=== PATIENT | female | born 1970 | race Caucasian/White ===

== ENCOUNTER 2022-10-05 09:27 | Emergency (ER) | payer OTHER, SELFPAY ==
[2022-10-05 09:29] VITALS: BP 121/61; PULSE 81; RESP 18; TEMP 35.7; O2SAT 98
--- NOTE | 2022-10-05 11:12 | ED.WOUNDLAC ---
HPI - Wound/Laceration General Chief Complaint: Wound/Laceration Stated Complaint: Thumb laceration Time Seen by Provider: 10/05/22 09:35 History of Present Illness HPI narrative: Patient is a 51-year-old female who presents ER with a laceration to her right thumb over the dorsal aspect at the DIP. Tripped and fell striking her hand on some concrete. She has normal range of motion. No numbness and tingling. She reports that her tetanus shot is up-to-date. No other complaints or injuries. Related Data Allergies Allergy/AdvReac Type Severity Reaction Status Date / Time minocycline Allergy Hives Verified 10/05/22 09:47 Review of Systems Constitutional: Constitutional: Reports no additional constitutional complaints Musculoskeletal: Musculoskeletal: Reports no additional musculoskeletal complaints Integumentary/Breasts: Skin/Breast: Denies erythema and Denies rash Comments: Laceration of the right thumb. Neurologic: Denies focal weakness and Denies numbness PMFSH Past Medical History Medical History (Updated 10/05/22 @ 15:17 by Julien Bennett MD) Diabetes Hyperlipidemia Hypertension Surgical History Surgical History (Updated 10/05/22 @ 15:17 by Julien Bennett MD) No pertinent past surgical history Exam Narrative: GENERAL: Well-appearing, well-nourished, and in no acute distress. HEAD: Normocephalic, atraumatic. CHEST: Clear to auscultation. No respiratory distress. HEART: Regular rate and rhythm. Normal peripheral pulses. EXTREMITIES: Normal range of motion. No edema. Right thumb with normal flexion extension and normal sensation. SKIN: Warm, dry, no rash. 1.5 cm V-shaped laceration over the DIP of the right thumb dorsal aspect with no exposure of bone or tendon. NEURO: Alert and oriented x3. PSYCH: Normal mood and affect. Course Course Emergency Course: Tolerated wound repair without issue. Discharge home. Vital Signs Vital signs: Vital Signs Temperature 96.3 F L 10/05/22 09:29 Pulse Rate 81 10/05/22 09:29 Respiratory Rate 18 10/05/22 09:29 Blood Pressure 121/61 10/05/22 09:29 Pulse Oximetry 98 10/05/22 09:29 Oxygen Delivery Room Air 10/05/22 09:29 Temperature 97.8 F 10/05/22 11:25 Pulse Rate 80 10/05/22 11:25 Respiratory Rate 18 10/05/22 11:25 Blood Pressure 120/70 10/05/22 11:25 Pulse Oximetry 100 10/05/22 11:25 Oxygen Delivery Room Air 10/05/22 09:29 Procedures Laceration Laceration 1: Date: 10/05/22 Time: 11:12 Site: hand Side (If applicable): right Size (cm): 1.5 Description: flap Depth: simple, single layer Local Anesthetic: lidocaine 1% and with epi Amount of anesthesia used (mL): 1.5 Pre-repair: wound explored and irrigated ====== Skin Level ====== Skin layer closed with: nylon Size (cm): 5-0 Number of sutures: 3 Technique: simple, interrupted ====== Subcutaneous Layer ====== ====== Muscle Layer ====== ====== Tendon Layer ====== Discharge Plan Discharge Clinical Impression: Laceration Patient Disposition: Home, Self-Care Condition: Stable Instructions: Care For Your Stitches (ED), Laceration (ED) Additional Instructions: Keep your sutures in for 2 weeks. Return to the ER if your thumb is red/hot, the wound is draining pus, you have additional concerns. You may use your splint for comfort to prevent bending and to protect it from injury while the sutures heal. Follow-up/Referrals: Fernandez,BETI Santa [Primary Care Provider] - 2 Weeks Stand Alone Forms: Work/School Release IP
--- NOTE | 2022-10-05 11:22 | PC.NURSE ---
Finger splint applied to pts R thumb per Dr. Acosta's verbal-order request. Pt had good cap refill <2 seconds after applying the splint.
[2022-10-05 11:25] VITALS: BP 120/70; PULSE 80; RESP 18; TEMP 36.6; O2SAT 100
== END 2022-10-05 11:27 | disposition home or self-care (01) ==
PROVIDERS: Emergency Provider Emergency Medicine; PCP Physician Assistant
DX: S61.011A Laceration without foreign body of right thumb without damage to nail, initial encounter (principal); E11.9 Type 2 diabetes mellitus without complications; E78.5 Hyperlipidemia, unspecified; I10 Essential (primary) hypertension; W01.0XXA Fall on same level from slipping, tripping and stumbling without subsequent striking against object, initial encounter
CPT/HCPCS: 12001; 99282

== ENCOUNTER 2023-03-24 09:20 | Emergency (ER) | payer OTHER, SELFPAY ==
[2023-03-24 09:22] VITALS: BP 130/78; PULSE 90; RESP 20; TEMP 36.6; O2SAT 100
--- NOTE | 2023-03-24 12:16 | ED.BACK ---
HPI - Back Pain/Injury General Chief Complaint: Back Pain/Injury Stated Complaint: low back pain , bilat leg prickling Time Seen by Provider: 03/24/23 11:59 History of Present Illness HPI Narrative: Patient is a 52 year old female here with back pain x 4 days. She notes that she twisted one day and felt immediate back pain. She notes that it is in her lower back and intermittently radiates down bilateral legs. Pain is associated with some pins and needles sensation over her buttock. No numbness or weakness in her bilateral lower extremities. No saddle anesthesia. No bowel or bladder incontinence. She denies any fall or trauma. She has her primary care doctor yesterday who discussed initiation of physical therapy and called her and baclofen. She had 1 dose of this yesterday without any improvement of her back pain. Today she took a naproxen around 7:30 a.m. with minimal help of her symptoms. She does note that she had some upper back pain in the past, has previously had some back x-rays performed showing concerns for degenerative disc disease around the area where her back pain is present today. No fever or chills. No urinary symptoms. She drove to the ER today and does not have a ride home. Related Data Allergies Allergy/AdvReac Type Severity Reaction Status Date / Time minocycline Allergy Hives Verified 10/05/22 09:47 Review of Systems Review of Systems: All systems reviewed & are unremarkable except as noted in HPI and below PMFSH Past Medical History Medical History (Updated 03/24/23 @ 13:15 by Ele Govea MD) Diabetes Hyperlipidemia Hypertension Surgical History Surgical History (Updated 10/05/22 @ 15:17 by Julien Bennett MD) No pertinent past surgical history Exam Narrative: GENERAL: Well-appearing, well-nourished, and in no acute distress. HEAD: Normocephalic, atraumatic. EYES: PERRLA and EOMI. ENT: Nares clear. Mucous membranes moist. NECK: Supple. CHEST: Clear to auscultation. No respiratory distress. HEART: Regular rate and rhythm. Normal peripheral pulses. ABDOMEN: Soft, nontender, nondistended. EXTREMITIES: Ambulates with steady gait. BL paraspinal tenderness around L1-2. Positive straight leg raise on the left. Normal sensation and strength in bilateral lower extremities. No edema. SKIN: Warm, dry, no rash. NEURO: No focal deficits. Alert and oriented x3. PSYCH: Normal mood and affect. Course Course Emergency Course: Chart review performed. Patient here with lower back pain x4 days. Triage vitals normal. One prior ED visit in September 2022 for a hand laceration. Patient seen evaluated, nontoxic appearing. She has some paraspinal tenderness over the upper lumbar area with positive straight leg sign. No red flag symptoms. She has known degenerative disc disease on prior imaging, do not believe there is an indication for additional imaging or lab work at this time. Patient does not have a ride home, will do a dose of Toradol and Tylenol here and send her home with prescription for Valium and [place]. She is advised to discontinue her baclofen if she is taking the other medications and does take your her muscle relaxer and pain medication. She is advised to contact her primary care doctor today to coordinate follow-up on Monday. She is given a work note and advised to rest over the next few days. The results of pertinent diagnostic studies and exam findings were discussed. The patient?s provisional diagnosis and plan of care were discussed with the patient and present family. The patient and/or present family expressed understanding of the diagnosis and plan. The nurse was instructed to provide written instructions and appropriate follow-up information. The patient understands their need and responsibility to obtain additional follow-up as instructed. The risks of medications administered and prescribed were discussed with the patient and family present. Vital Signs Vital signs: Vital Signs
[2023-03-24] MEDS: KETOROLAC 30 MG/ML VIAL (*BKC) IM (13:36)
[2023-03-24] MEDS: ACETAMINOPHEN 500 MG TABLET 1000 MG PO (13:36)
[2023-03-24 13:45] VITALS: BP 125/80; PULSE 75; RESP 16; O2SAT 99
== END 2023-03-24 13:45 | disposition home or self-care (01) ==
PROVIDERS: Emergency Provider Student in an Organized Health Care Education/Training Program; PCP Physician Assistant
DX: M54.16 Radiculopathy, lumbar region (principal); E11.9 Type 2 diabetes mellitus without complications; E78.5 Hyperlipidemia, unspecified; I10 Essential (primary) hypertension
CPT/HCPCS: 96372; 99283; A9270; J1885

== ENCOUNTER → 2023-04-03 15:59 | Outpatient (CLI) | payer OTHER, SELFPAY ==
--- NOTE | ~2023-04-03 | XR_ITS ---
Lumbosacral Spine: AP and lateral views Clinical History: Pain Findings: The normal lordotic curve is maintained. The vertebral bodies and posterior elements are i ntact. The intervertebral disc spaces are preserved. There is mild to moderate facet arthropathy at the lower lumbar spine. The sacroiliac joints are normally outlined. Impression: Mild to moderate facet arthropathy at the lower lumbar spine. Reviewed, dictated and finalized at location . RD RETRIEVAL SPECIALIST Impression: Mild to moderate facet arthropathy at the lower lumbar spine.
--- NOTE | ~2023-04-03 | XR_ITS ---
EXAMINATION: XR foot LT min 3V DATE: 04/03/2023 16:35 INDICATION: Left toe pain TECHNIQUE: Dorsoplantar, two oblique and lateral views of the left foot were obtained. COMPARISON: None. FINDINGS: Minimal displaced intra-articular fracture at the base of the left proximal phalanx. No evident produ ctive changes of healing. Bone alignment is otherwise normal. No other fractures identified. Typical distribution of minimal to mild polyarticular osteoarthritis at the first metatarsophalangeal and a f ew tarsal metatarsal and interphalangeal joints. IMPRESSION: 1. Minimally displaced intra-articular fracture at the base of the left fifth proximal phalanx. Reviewed, dictated and finalized at location A. RIMENTAL ROCKETSLED MECHANIC IMPRESSION: 1. Minimally displaced intra-articular fracture at the base of the left fifth p roximal phalanx.
== END ==
PROVIDERS: PCP Physician Assistant; Visit Provider Physician Assistant
DX: S92.512A Displaced fracture of proximal phalanx of left lesser toe(s), initial encounter for closed fracture (principal); M47.816 Spondylosis without myelopathy or radiculopathy, lumbar region; Z12.31 Encounter for screening mammogram for malignant neoplasm of breast; X58.XXXA Exposure to other specified factors, initial encounter
CPT/HCPCS: 72100; 73630

== ENCOUNTER 2023-04-04 09:23 | Emergency (ER) | payer OTHER, SELFPAY ==
--- NOTE | ~2023-04-04 | CT_ITS ---
EXAMINATION: CT lumbar spine wo con DATE: 04/04/2023 10:42 INDICATION: Low back pain. TECHNIQUE: Computed tomography (CT) of the lumbar spine was performed without intravenous contrast. A utomated exposure control and iterative reconstruction technique were employed. The dose-length produ ct was 800.10 mGy-cm. COMPARISON: Lumbar spine radiographs 04/03/2023 FINDINGS: Bone alignment is normal. There is mild chronic anterior wedging of L1 and L2 vertebral bod ies. There is mildly decreased disc height at T12-L1, L1-L2, L3-L4, and L5-S1. The following disc lev els are specifically discussed: L1-L2: The disc does not extend beyond the endplate margin. There is severe bilateral facet joint ost eoarthritis. There is no neural foraminal stenosis. There is no central canal stenosis. L2-L3: The disc is bulging. There is severe bilateral facet joint osteoarthritis. There is mild bilat eral neural foraminal stenosis. There is no central canal stenosis. L3-L4: The disc is bulging. There is moderate right and severe left facet joint osteoarthritis. There is mild bilateral neural foraminal stenosis. There is mild central canal stenosis. L4-L5: The disc is bulging. There is severe bilateral facet joint osteoarthritis. There is mild bilat eral neural foraminal stenosis. There is mild central canal stenosis. L5-S1: The disc is bulging. There is severe bilateral facet joint osteoarthritis. There is mild bilat eral neural foraminal stenosis. There is mild central canal stenosis. IMPRESSION: 1. Mild lumbar spondylosis. Reviewed, dictated and finalized at location A. T DISTILLER IMPRESSION: 1. Mild lumbar spondylosis.
[2023-04-04 09:24] VITALS: BP 118/66; PULSE 86; RESP 16; TEMP 36.6; O2SAT 100
[2023-04-04 09:50] VITALS: BP 153/83; PULSE 84; RESP 16; O2SAT 100
--- NOTE | 2023-04-04 10:19 | ED.BACK ---
HPI - Back Pain/Injury General Chief Complaint: Back Pain/Injury Stated Complaint: backi pain Time Seen by Provider: 04/04/23 09:42 Source: patient and old records reviewed Mode of arrival: ambulatory Limitations: no limitations History of Present Illness HPI Narrative: Patient is a 52 y/o female who presents to the ED with c/o low back pain. Patient reports she has been having intermittent pain in her lower back for the last 3 weeks, initially worse with certain movements, now more bothersome over the last 1 week, worse with bending over, twisting. She has been taking ibuprofen, baclofen, intermittent valium for the pain with some improvement. She was seen in the ED on 03/24 and discharged w/o imaging as she denied any further sx's/neurologic complaints. Patient reports over the last couple days she has had diarrhea and had a few episodes of incontinence while sleeping. She did have a couple episodes of bowel incontinence when awake yesterday, but states she was unable to get to the bathroom in time and a small amount of stool leaked out. Denies any urinary incontinence, saddle anesthesia, numbness, weakness of lower extremities. Denies abdominal pain, nausea, vomiting. Denies fevers. Related Data Allergies Allergy/AdvReac Type Severity Reaction Status Date / Time minocycline Allergy Hives Verified 04/04/23 09:48 Review of Systems Review of Systems: CONSTITUTIONAL: Denies fever, chills, or sweats. GASTROINTESTINAL: See HPI. GENITOURINARY: Denies dysuria or hematuria. MUSCULOSKELETAL: See HPI. NEUROLOGIC: See HPI. All systems reviewed & are unremarkable except as noted in HPI and below PMFSH Past Medical History Medical History Diabetes Hyperlipidemia Hypertension Surgical History Surgical History No pertinent past surgical history Exam Narrative: GENERAL: Well appearing, well-nourished, non-toxic, in no acute distress. HEAD: Normocephalic, atraumatic. RESPIRATORY: Airway patent, respirations nonlabored. Clear to auscultation bilaterally, no rales, rhonchi, wheezing. CARDIOVASCULAR: Regular rate and rhythm. ABDOMINAL: Soft, no tenderness throughout abdomen. Normoactive BS. MUSCULOSKELETAL: Moves all extremities. No gross deformities. No appreciable midline lumbar spinal tenderness. Mild tenderness throughout left-sided lumbar paraspinal musculature extending into left lumbosacral region. No palpable deformities or bony step-offs. Positive straight leg raise on left. SKIN: Warm, dry, normal color. NEURO: A&O X3. Speech clear. Cranial nerves II-XII grossly intact. No ataxic movements. PSYCHIATRIC: Appropriate mood and affect. Normal interaction. Course Vital Signs Vital signs: Vital Signs Temperature 97.9 F 04/04/23 09:24 Pulse Rate 86 04/04/23 09:24 Respiratory Rate 16 04/04/23 09:24 Blood Pressure 118/66 04/04/23 09:24 Pulse Oximetry 100 04/04/23 09:24 Temperature 97.9 F 04/04/23 09:24 Pulse Rate 80 04/04/23 11:15 Respiratory Rate 16 04/04/23 11:15 Blood Pressure 137/80 04/04/23 11:15 Pulse Oximetry 98 04/04/23 11:15 MDM - Back Pain/Injury MDM Narrative Medical decision making narrative: Patient presented to ED with several week history of lower back pain, worsening over the last couple of days. Reporting some bowel incontinence, though describes it as though she is unable to get to the bathroom in time. Reports diarrhea over the last couple of days. Denies any urinary incontinence. Denies urinary retention. Denies saddle anesthesia, numbness of any kind, weakness in lower extremities. Patient otherwise neurologically intact. Low suspicion for acute cauda equina at this time. Will attempt pain control and obtain further imaging. Patient given dose of steroids and Tylenol in the ED. She took ibuprofen prior to arrival. She is rafia
[2023-04-04] MEDS: ACETAMINOPHEN 500 MG TABLET 1000 MG PO (10:22)
[2023-04-04] MEDS: methylPREDNISolone SOD SUCC 125 MG VIAL IM (10:23)
[2023-04-04 10:26] VITALS: BP 134/76; PULSE 82; RESP 16; O2SAT 99
[2023-04-04 11:15] VITALS: BP 137/80; PULSE 80; RESP 16; O2SAT 98
== END 2023-04-04 13:19 | disposition home or self-care (01) ==
PROVIDERS: Emergency Provider Physician Assistant; PCP Physician Assistant
DX: S39.012A Strain of muscle, fascia and tendon of lower back, initial encounter (principal); M47.816 Spondylosis without myelopathy or radiculopathy, lumbar region; E11.9 Type 2 diabetes mellitus without complications; I10 Essential (primary) hypertension; E78.5 Hyperlipidemia, unspecified; X58.XXXA Exposure to other specified factors, initial encounter
CPT/HCPCS: 72131; 96372; 99284; A9270; J2930

== ENCOUNTER 2023-05-14 09:11 | Emergency (ER) | payer OTHER, SELFPAY ==
--- NOTE | ~2023-05-14 | XR_ITS ---
XR shoulder RT min 2V 05/14/2023 09:59 Indication: Right shoulder pain Procedure: 4 views right shoulder Comparison: No prior studies for comparison. Findings: No fracture, subluxation or dislocation. No soft tissue abnormality. No foreign bodies. Impression: 1: No acute bone or joint abnormality. Reviewed, dictated and finalized at location A. Impression: 1: No acute bone or joint abnormality.
[2023-05-14 09:12] VITALS: BP 129/65; PULSE 85; RESP 17; TEMP 36.5; O2SAT 100
--- NOTE | 2023-05-14 10:10 | ED.UPPEXIN ---
HPI - Extremity Injury (Upper) General Chief Complaint: Extremity Injury, Upper Stated Complaint: right shoulder injury Time Seen by Provider: 05/14/23 09:21 History of Present Illness HPI narrative: 52-year-old female presents to emergency department for right shoulder pain. States this night she got up to get to the bathroom, fell and landed on her right shoulder. States that she did hit the right side of her face/head against the ground but denies loss of consciousness her pain in this area. She is reporting pain to her right shoulder that is worse with anterior flexion. She is not anticoagulated. Denies vision changes, focal numbness or weakness Or other injuries acquired. Related Data Allergies Allergy/AdvReac Type Severity Reaction Status Date / Time minocycline Allergy Hives Verified 05/14/23 09:17 Review of Systems Review of Systems: CONSTITUTIONAL: Denies fever, chills, or sweats. EYES: Denies visual changes, redness, or discharge. ENT: Denies rhinorrhea, congestion, sore throat, or otalgia. CARDIOVASCULAR: Denies chest pain, palpitations, or edema. RESPIRATORY: Denies cough or dyspnea. GASTROINTESTINAL: Denies abdominal pain, nausea, vomiting, or diarrhea. GENITOURINARY: Denies dysuria or hematuria. SKIN: Denies rash or itching. MUSCULOSKELETAL: See HPI NEUROLOGIC: Denies headache, numbness, or weakness. PSYCHIATRIC: Denies anxiety or depression. PMFSH Past Medical History Medical History Diabetes Hyperlipidemia Hypertension Surgical History Surgical History No pertinent past surgical history Exam Narrative: GENERAL: Well-appearing, well-nourished, and in no acute distress. HEAD: Normocephalic, atraumatic. No tenderness, ecchymosis or edema no facial bones EYES: PERRLA and EOMI. ENT: Nares clear, no rhinorrhea or epistaxis. Mucous membranes moist. NECK: No midline cervical spinous tenderness, step-offs or deformities BACK: no thoracolumbar spinous tenderness, step-offs or deformities. CHEST: Clear to auscultation. No respiratory distress. HEART: Regular rate and rhythm. No murmur heard. Normal peripheral pulses. ABDOMEN: Soft, nontender, nondistended, normal active bowel sounds. EXTREMITIES: RUE: tenderness to the glenohumeral joint with passive and active 80 duction and internal rotation. Limited anterior flexion secondary to pain. No obvious deformity, warmth, erythema or edema to joint. No tenderness to clavicle or acromion. No tenderness remainder of upper extremity. Radial pulse 2 +. Median, radial and ulnar nerves intact. Sensation intact throughout. No tenderness remainder of upper lower extremities. SKIN: Warm, dry, no rash. NEURO: No focal deficits. Alert and oriented x3 Course Vital Signs Vital signs: Vital Signs Temperature 97.7 F 05/14/23 09:12 Pulse Rate 85 05/14/23 09:12 Respiratory Rate 17 05/14/23 09:12 Blood Pressure 129/65 05/14/23 09:12 Pulse Oximetry 100 05/14/23 09:12 Oxygen Delivery Room Air 05/14/23 09:12 Temperature 97.7 F 05/14/23 09:12 Pulse Rate 85 05/14/23 09:12 Respiratory Rate 17 05/14/23 09:12 Blood Pressure 129/65 05/14/23 09:12 Pulse Oximetry 100 05/14/23 09:12 Oxygen Delivery Room Air 05/14/23 09:12 MDM - Extremity Injury (Upper) MDM Narrative Medical decision making narrative: 52-year-old female presents to the emergency department for right shoulder pain after ground level fall that occurred last night. Vital stable. Exam significant for the above. X-ray showed no acute osseous abnormality. Offered to obtain a CT brain /C-spine for reported head injury, however patient declined. She is neurovascularly intact. Will place her in a shoulder sling and provide orthopedic follow-up. Strict ED return precautions discussed. She is agreeable to plan verbalized understanding.
[2023-05-14] MEDS: ACETAMINOPHEN 500 MG TABLET 1000 MG PO (10:24)
== END 2023-05-14 10:30 | disposition home or self-care (01) ==
PROVIDERS: Emergency Provider Physician Assistant; PCP Physician Assistant
DX: S49.91XA Unspecified injury of right shoulder and upper arm, initial encounter (principal); S09.90XA Unspecified injury of head, initial encounter; I10 Essential (primary) hypertension; E11.9 Type 2 diabetes mellitus without complications; E78.5 Hyperlipidemia, unspecified
CPT/HCPCS: 73030; 99283; A4565; A9270

== ENCOUNTER 2024-07-16 05:32 | Emergency (ER) | payer OTHER, SELFPAY ==
[2024-07-16] VITALS (13 sets, daily range): BP systolic 123–164; BP diastolic 77–93; PULSE 76–91; RESP 14–23; TEMP 36.4; O2SAT 98–100
--- NOTE | ~2024-07-16 | XR_ITS ---
Clinical Indication: Chest pain PA and lateral views of the chest: Comparison: None Findings: The lungs are clear, without evidence of focal consolidation or pleural effusion. Cardiome diastinal silhouette is within normal limits. Bones and soft tissues are unremarkable. Impression: Normal chest. Reviewed, dictated and finalized at location . Impression: Normal chest.
--- OUTSIDE RECORDS SUMMARY | 2024-07-16 05:35 | XMS_ITS | Data Portability ---
Author Organization [facility] , [facility] Address [address] [place] [address] Care Team Providers Care Activity Therapy Teacher Name Role Phone [facility] Therapeutic Riding Instructor Assessment No assessment recorded. Plan of Treatment Reminders Order Date Submit Date Provider Last Modified By Organization Details Last Modified Time Details Appointments None recorded. Lab bacterial vaginosis + vaginitis panel, vaginal 2023 024 [facility], [address] [place], [address], 4 12:17:37 pap, LB 2022 023 [facility], [address] [facility], [place], [address], 3 13:47:37 HPV E6+E7 mRNA, qualitative PCR, cervix 2022 023 [facility], [address] [place], [address], 3 14:22:18 Referral None recorded. Procedures None recorded. Surgeries None recorded. Imaging US, transvagina l 2023 024 [facility] Not available 4 14:45:50 Medication Orders clobetasol 0.05 % topical ointment 2023 0[facility], [address], [place], [address], 4 14:25:16 Prometrium 100 mg capsule 2023 024 [facility] [address], [address], [place], [address], 4 14:25:15 bacitracin 500 unit/gram topical ointment 2023 024 [facility] [address], [address], [place], [address], 4 13:17:08 nystatin-tr iamcinolone 100,000 unit/gram-0 .1 % topical ointment 2023 024 [facility] [address], [address], [place], [address], 4 13:17:07 Patient TargetsNo targets recorded. Patient Instructions Encounter Date Encounter Id Patient Instructions Last Modified By Organization Details Last Modified Time 04/13/2022 [id number] Patient Health Questionnaire-9* [email or web address] Not available 04/13/2022 21:07:15 Reason for Referral None Reported. Results Created Date Observation Date Name Description Value Unit Range Abnormal Flag Note LastModifiedBy Organization Detail LastModifiedTime 04/13/1904/15/2022 HPV HIGH RISK HPV high risk Negati ve negati ve normal The HPV High Risk assay is inten ded for use as co-te sting with cytol ogy and not as a subst itute for regul ar cervi kitty cytol ogy scree elida. This assay is not inten ded for use as a scree elida devic e for women under age 30 with guillermo l cervi kitty cytol ogy. Not Available [facility] [address] [place], [address], 04/15/2022 14:22:18 04/13/1904/20/2022 THINP REP TIS PAP clinical information: normal None given Not Available [employer] [facility] [address] [place], [address], 04/20/2022 13:47:37 04/13/1904/20/2022 THINP REP TIS PAP LMP: normal NONE GIVEN Not Available [address], [address], 04/20/2022 13:47:37 04/13/19 23 04/20/2022 THINP REP TIS PAP prev. Pap: normal NONE GIVEN Not Available [address], [address], 04/20/2022 13:47:37 04/13/19 23 04/20/2022 THINP REP TIS PAP prev. BX: normal NONE GIVEN Not Available [address], [address], 04/20/2022 13:47:37 04/13/19 23 04/20/2022 THINP REP TIS PAP source: normal Cervi x Not Available [address], [address], 04/20/2022 13:47:37 04/13/19 23 04/20/2022 THINP REP TIS PAP statement of adequacy: normal Satis facto ry for evalu ation . Endoc ervic al/tr ansfo rmati on zone compo nent prese nt. Age and/o r menst rual statu s not provi ded Not Available [address], [address], 04/20/2022 13:47:37 04/13/19 23 04/20/2022 THINP REP TIS PAP interpretati on/result: normal Negat rere for intra epith elial lesio n or malig hannah . Not Available [address], [address], 04/20/2022 13:47:37 04/13/19 23 04/20/2022 THINP REP TIS PAP comment: normal This Pap test has been evalu ated with compu ter jesse [employer] . Not Available [address], [address], 04/20/2022 13:47:37 04/13/19 23 04/20/2022 THINP REP TIS PAP cytotechnolo gist: normal EVANS, CT( CP) CT Scree elida locat ion: [id number] [address] [place] [place] [address] Not Available [employer] [facility] [address] [address], [place], [address], 04/20/2022 13:47:37 04/13/19 23 04/20/2022 THINP REP TIS PAP comment EXPLA NATOR Y NOTE: The Pap is a scree elida test for cervi kitty cance r. It is not a diagn ostic test and is subje ct to false negat rere and false posit rere resul ts. It is most relia ble when a satis facto ry sampl e, regul anibal obtai gopal, is submi tted with relev ant clini kitty findi ngs and histo ry, and when the Pap resul t is evalu ated along with histo matt and curre nt clini kitty infor matio n. Not Available [employer] [facility] [address] [address], [place], [address], 04/20/2022 13:47:37 07/25/19 24 07/28/2023 VAGIN ITIS PANEL bacterial vaginosis BV POS negati ve abnormal Not Available [facility] [address] [place] [address], [address], 07/28/2023 12:17:37 07/25/19 24 07/28/2023 VAGIN ITIS PANEL kasi species C. spp POS negati ve abnormal Not Available [email or web address] [address] [place], [address], 07/28/2023 12:17:37 07/25/19 24 07/28/2023 VAGIN ITIS PANEL kasi glabrata C. gla neg negati ve normal Not Available [facility] [address] [place], [address], 07/28/2023 12:17:37 06/04/20 24 07/28/2023 VAGIN ITIS PANEL trichomonas vaginalis CV/TV TRICH neg negati ve normal Not Available [facility] [address] [facility], [place], [address], 07/28/2023 12:17:37 08/15/19 24 08/15/2023 US, trans vagin al No observ ation record ed. [email or web address] [facility] [address], [place], [address], 08/16/2023 07:55:02 Result Notes None recorded. Procedures Surgical History Date Name Laterality Status Provider Name and Address Organization Details Recorded Time 12/20/19 23 Date of Last Colonoscopy completed Aslhi [employer] [facility] 07/25/2023 12:39:49 04/13/19 23 Date of Last Pap Smear completed Olimpia Davis [facility] 08/15/2023 12:53:35 04/06/19 23 Most Recent Mammogram completed [facility] [employer] [facility] 04/13/2022 18:28:29 hernia repair completed [facility] [employer] [facility] 04/13/2022 18:31:16 Hysteroscopy ablation completed [facility] [employer] IV 04/13/2022 18:31:30 section completed [facility] [employer] IV 04/13/2022 18:31:40 Imaging Results None recorded. Procedure Notes None recorded. Medical Equipment None Reported. Allergies Allergen ID Allergen Name Allergen Category Reaction Reaction Severity Criticality Documentation Date Start Date Code Code System Note Provider Name and Address Organization Details Recorded Time 800386 minocycli ne medicatio n Not available Not available Not available 04/13/2022 6980 [employer] [facility], [facility] 18:20:34 Medications Name Sig Start Date Stop Date Status Note LastModified by Organization Details LastModified Time eq gas relief cap TAKE 4 CAPSULES BY MOUTH NEEDED FOR GAS 07/24 completed Not Available Not Available Not Available losartan 50 mg tablet TAKE 1 TABLET BY MOUTH ONCE DAILY 09/12 completed Not Available Not Available Not Available cyclobenzap rine 10 mg tablet TAKE 1 TABLET BY MOUTH THREE TIMES DAILY NEEDED active Not Available Not Available No t Available atorvastati n 40 mg tablet TAKE 1 TABLET BY MOUTH ONCE DAILY active Not Available Not Available No t Available methocarbam ol 500 mg tablet TAKE 2 TABLETS BY MOUTH THREE TIMES DAILY NEEDED FOR MUSCLE SPASM 07/24 completed Not Available Not Available Not Available quetiapine 300 mg tablet TAKE 1 TABLET BY MOUTH ONCE DAILY AT BEDTIME 07/24 completed Not Available Not Available Not Available citalopram 40 mg tablet TAKE 1 TABLET BY MOUTH ONCE DAILY 07/24 completed Not Available Not Available Not Available trazodone 50 mg tablet TAKE 1 TABLET BY MOUTH ONCE DAILY AT BEDTIME NEEDED FOR 30 DAYS 07/24 completed Not Available Not Available Not Available cetirizine 10 mg tablet 11/05 completed Not Available Not Available Not Available azithromyci n 250 mg tablet 04/13 completed Not Available Not Available Not Available fluconazole 150 mg tablet Take 1 tablet every 72 hours by oral route. 08/14 completed Not Available Not Available Not Available benzonatate 200 mg capsule TAKE 1 CAPSULE BY MOUTH THREE TIMES DAILY FOR 10 DAYS 11/05 completed Not Available Not Available Not Available citalopram 10 mg tablet TAKE 1 TABLET BY MOUTH ONCE DAILY FOR 30 DAYS 04/13 completed Not Available Not Available Not Available hydrocodone 5 mg-acetamin ophen 325 mg tablet TAKE 1 TABLET BY MOUTH EVERY 4 HOURS 07/24 completed Not Available Not Available Not Available glipizide 10 mg tablet TAKE 1 TABLET BY MOUTH TWICE DAILY DIRECTED 04/13 completed Not Available Not Available Not Available gabapentin 400 mg capsule TAKE 1 CAPSULE BY MOUTH THREE TIMES DAILY DIRECTED 04/13 completed Not Available Not Available Not Available quetiapine 200 mg tablet TAKE 1 TABLET BY MOUTH AT BEDTIME 04/13 completed Not Available Not Available Not Available olanzapine 5 mg tablet TAKE 1 TABLET BY MOUTH ONCE DAILY AT BEDTIME FOR 30 DAYS 07/24 completed Not Available Not Available Not Available bacitracin 500 unit/gram topical ointment APPLY A THIN LAYER OF OINTMENT EXTERNALL Y TO AFFECTED AREA ONCE DAILY active Not Available Not Available No t Available metronidazo le 500 mg tablet Take 1 tablet every 12 hours by oral route for 7 days. 08/14 completed Not Available Not Available Not Available tramadol 50 mg tablet TAKE 1 TO 2 TABLETS BY MOUTH TWICE DAILY NEEDED 11/05 completed Not Available Not Available Not Available quetiapine 100 mg tablet TAKE 1 TABLET BY MOUTH ONCE DAILY AT BEDTIME FOR 30 DAYS 04/13 completed Not Available Not Available Not Available vancomycin 125 mg capsule TAKE 1 CAPSULE BY MOUTH EVERY 6 HOURS FOR 10 DAYS 07/24 completed Not Available Not Available Not Available pantoprazol e 20 mg tablet,darwin yed release 04/13 completed Not Available Not Available Not Available nystatin-tr iamcinolone 100,000 unit/gram-0 .1 % topical ointment APPLY OINTMENT TOPICALLY TO AFFECTED AREA TWICE DAILY active Not Available Not Available No t Available citalopram 20 mg tablet TAKE 1 & 1/2 (ONE & ONE-HALF) TABLETS BY MOUTH ONCE DAILY 04/13 completed Not Available Not Available Not Available methocarbam ol 750 mg tablet TAKE 1 TABLET BY MOUTH THREE TIMES DAILY NEEDED active Not Available Not Available No t Available baclofen 10 mg tablet TAKE 1 TABLET BY MOUTH TWICE DAILY NEEDED FOR 14 DAYS active Not Available Not Available No t Available bisacodyl 10 mg rectal suppository INSERT 1 SUPPOSITO RY RECTALLY ONCE DAILY NEEDED active Not Available Not Available No t Available pantoprazol e 40 mg tablet,darwin yed release TAKE 1 TABLET BY MOUTH TWICE DAILY IN THE MORNING FOR 30 DAYS FOR ACID REFLUX active Not Available Not Available No t Available metformin 1,000 mg tablet TAKE 1 TABLET BY MOUTH TWICE DAILY active Not Available Not Available No t Available Gentle Laxative (bisacodyl) 5 mg tablet,darwin yed release TAKE 2 TABLETS BY MOUTH AT 10 AM OF 12/12 completed Not Available Not Available Not Available misoprostol 200 mcg tablet TAKE 2 TABLETS BY MOUTH 4 TIMES DAILY 07/24 completed Not Available Not Available Not Available losartan 25 mg tablet TAKE 1 TABLET BY MOUTH ONCE DAILY 07/24 completed Not Available Not Available Not Available gabapentin 300 mg capsule TAKE 1 CAPSULE BY MOUTH THREE TIMES DAILY DIRECTED active Not Available Not Available No t Available aspirin 81 mg chewable tablet CHEW AND SWALLOW 1 TABLET BY MOUTH ONCE DAILY active Not Available Not Available No t Available acetaminoph en 300 mg-codeine 60 mg tablet TAKE 1 TABLET BY MOUTH TWICE DAILY NEEDED active Not Available Not Available No t Available metoprolol succinate ER 25 mg tablet,exte nded release 24 hr TAKE 1 TABLET BY MOUTH ONCE DAILY 07/24 completed Not Available Not Available Not Available clobetasol 0.05 % topical ointment APPLY A THIN LAYER TO THE AFFECTED AREA(S) BY TOPICAL ROUTE NIGHTLY active Not Available Not Available No t Available polyethylen e glycol 3350 17 gram/dose oral powder TAKE 17 GRAMS ORALLY TWICE DAILY 04/13 completed Not Available Not Available Not Available mirtazapine 15 mg disintegrat ing tablet DISSOLVE 1 TABLET BY MOUTH EVERY DAY AT BEDTIME FOR 30 DAYS 07/24 completed Not Available Not Available Not Available methylpredn isolone 4 mg tablets in a dose pack TAKE BY MOUTH DIRECTED ON INSIDE OF PACKAGE 07/24 completed Not Available Not Available Not Available albuterol sulfate HFA 90 mcg/actuati on aerosol inhaler INHALE 1 TO 2 PUFFS BY MOUTH EVERY 4 HOURS NEEDED FOR WHEEZING FOR 10 DAYS 11/05 completed Not Available Not Available Not Available SSD 1 % topical cream APPLY A 116TH INCH (1.5 MM) THICK LAYER TO ENTIRE BURN AREA ON FOOT BY TOPICAL ROUTE TWICE DAILY 04/13 completed Not Available Not Available Not Available cefdinir 300 mg capsule TAKE 1 CAPSULE BY MOUTH EVERY 12 HOURS FOR 10 DAYS 11/05 completed Not Available Not Available Not Available fluticasone propionate 50 mcg/actuati on nasal spray,suspe nsion USE 1 SPRAY(S) IN EACH NOSTRIL ONCE DAILY DIRECTED 09/12 completed Not Available Not Available Not Available lamotrigine 100 mg tablet TAKE 1 TABLET BY MOUTH TWICE DAILY active Not Available Not Available No t Available loratadine 10 mg tablet TAKE 1 TABLET BY MOUTH ONCE DAILY IN THE MORNING FOR 30 DAYS 11/05 completed Not Available Not Available Not Available naproxen 500 mg tablet TAKE 1 TABLET BY MOUTH TWICE DAILY NEEDED WITH FOOD active Not Available Not Available No t Available diazepam 5 mg tablet TAKE 1 TABLET BY MOUTH THREE TIMES DAILY NEEDED FOR MUSCLE SPASM 07/24 completed Not Available Not Available Not Available progesteron e micronized 100 mg capsule TAKE 2 CAPSULES EVERY NIGHT FOR 12 DAYS, REPEAT IN 4 WEEKS FOR 3 TOTAL CYCLES active Not Available Not Available No t Available amoxicillin 500 mg-debra mao clavulanate 125 mg tablet TAKE 1 TABLET BY MOUTH EVERY 8 HOURS 09/12 completed Not Available Not Available Not Available oxycodone 5 mg tablet TAKE 1 TABLET BY MOUTH EVERY 4 HOURS NEEDED FOR PAIN 04/13 completed Not Available Not Available Not Available Ready-To-Us e Enema (mineral oil) INSERT 1 BOTTLE RECTALLY ONCE DAILY FOR 7 DAYS DO NOT USE MORE THAN 1 ENEMA IN 24 HOURS 07/24 completed Not Available Not Available Not Available ezetimibe 10 mg tablet TAKE 1 TABLET BY MOUTH ONCE DAILY active Not Available Not Available No t Available duloxetine 20 mg capsule,del ayed release TAKE 1 CAPSULE BY MOUTH ONCE DAILY IN THE EVENING FOR 30 DAYS active Not Available Not Available No t Available duloxetine 30 mg capsule,del ayed release TAKE 1 CAPSULE BY MOUTH ONCE DAILY IN THE MORNING FOR 30 DAYS active Not Available Not Available No t Available eszopiclone 3 mg tablet TAKE 1 TABLET BY MOUTH ONCE DAILY AT BEDTIME IMMEDIATE LY BEFORE BED active Not Available Not Available No t Available eszopiclone 2 mg tablet TAKE 1 TABLET BY MOUTH ONCE DAILY IMMEDIATE LY BEFORE BEDTIME 07/24 completed Not Available Not Available Not Available eszopiclone 1 mg tablet TAKE 1 TABLET BY MOUTH ONCE DAILY IMMEDIATE LY BEFORE BEDTIME 07/24 completed Not Available Not Available Not Available ramelteon 8 mg tablet TAKE 1 TABLET BY MOUTH ONCE DAILY AT BEDTIME NEEDED 07/24 completed Not Available Not Available Not Available lubiproston e 24 mcg capsule TAKE 1 CAPSULE BY MOUTH TWICE DAILY 07/24 completed Not Available Not Available Not Available BD Ultra-Fine Short Pen Needle 31 gauge x /16 USE 1 NEEDLE ONCE DAILY TO INJECT INSULIN active Not Available Not Available No t Available quetiapine 50 mg tablet TAKE 1 TABLET BY MOUTH ONCE DAILY AT BEDTIME 07/24 completed Not Available Not Available Not Available quetiapine 400 mg tablet TAKE 1 TABLET BY MOUTH AT BEDTIME FOR 30 DAYS active Not Available Not Available No t Available cholecalcif gume (vitamin D3) 1,250 mcg (50,000 unit) capsule TAKE 1 CAPSULE BY MOUTH ONCE A WEEK WITH MEALS 07/24 completed Not Available Not Available Not Available Lantus Solostar U-100 Insulin 100 unit/mL (3 mL) subcutaneou s pen INJECT 35 UNITS SUBCUTANE OUSLY ONCE DAILY AT BEDTIME 07/24 completed Not Available Not Available Not Available lubiproston e 8 mcg capsule 07/24 completed Not Available Not Available Not Available GaviLyte-G 236 gram-22.74 gram-6.74 gram-5.86 gram oral solution DRINK 1/2 OF JUG # 1 AT 6 PM ON 12/12 AND ON 12/13 AT 10 AM DRINK REMAINING 1/2 OF JUG #1 UNTIL EMPTY, THEN DRINK 1/2 OF JUG # 2 AT 6 PM ON 12/13 AND ON 12/14 AT 7 AM DRINK REMAINING 1/2 OF JUG #2 UNTIL EMPTY 07/24 completed Not Available Not Available Not Available Linzess 290 mcg capsule TAKE 1 CAPSULE BY MOUTH ONCE DAILY FOR 30 DAYS 07/24 completed Not Available Not Available Not Available Jardiance 10 mg tablet TAKE 1 TABLET BY MOUTH ONCE DAILY 07/24 completed Not Available Not Available Not Available Jardiance 25 mg tablet TAKE 1 TABLET BY MOUTH ONCE DAILY IN THE MORNING active Not Available Not Available No t Available Trulicity 1.5 mg/0.5 mL subcutaneou s pen injector INJECT 3 MG (2 PENS) EVERY WEEK SUBCUTANE OUSLY DIRECTED 07/24 completed Not Available Not Available Not Available Trulicity 0.75 mg/0.5 mL subcutaneou s pen injector 07/24 completed Not Available Not Available Not Available OneTouch Verio Flex Meter USE DIRECTED active Not Available Not Available No t Available OneTouch Delica Plus Lancet 33 gauge USE 1 LANCET TO CHECK GLUCOSE ONCE DAILY active Not Available Not Available No t Available OneTouch Delica Plus Lancing Device kit USE 1 ONCE DAILY active Not Available Not Available No t Available Nexletol 180 mg tablet TAKE 1 TABLET BY MOUTH ONCE DAILY active Not Available Not Available No t Available Trulicity 3 mg/0.5 mL subcutaneou s pen injector 07/24 completed Not Available Not Available Not Available Trulicity 4.5 mg/0.5 mL subcutaneou s pen injector INJECT 4.5 MG EVERY WEEK SUBCUTANE OUSLY DIRECTED FOR 30 DAYS 07/24 completed Not Available Not Available Not Available Ozempic 1 mg/dose (4 mg/3 mL) subcutaneou s pen injector INJECT 1 MG ONCE EVERY 7 DAYS SUBCUTANE OUSLY FOR DIABETES active Not Available Not Available No t Available Ibsrela 50 mg tablet TAKE 1 TABLET BY MOUTH TWICE A DAY IMMEDIATE LY BEFORE MEALS 11/05 completed Not Available Not Available Not Available Ozempic 0.25 mg or 0.5 mg (2 mg/3 mL) subcutaneou s pen injector INJECT 0.5MG SUBCUTANE OUSLY EVERY WEEK FOR TYPE 2 DIABETES active Not Available Not Available No t Available Vitals Date Recorded Body weight Body temperature Body mass index (BMI) Body height Systolic And Diastolic Provider Name and Address Organization Details Last Updated DateTime 04/13/2022 05671.77 g 96.9 [degF] 24.7 kg/m2 185.42 cm 108/68 mm[Hg] Josie Ayala [facility] [employer] [facility] 3 18:19:10 Date Recorded Body height Body mass index (BMI) Body weight Body temperature Systolic And Diastolic Provider Name and Address Organization Details Last Updated DateTime 07/25/2023 185.42 cm 25.8 kg/m2 23083.6 7 g 97.1 [degF] 118/72 mm[Hg] [facility] [employer] [facility] 4 12:49:32 Date Recorded Body height Body mass index (BMI) Body weight Body temperature Systolic And Diastolic Provider Name and Address Organization Details Last Updated DateTime 08/15/2023 185.42 cm 24.2 kg/m2 11841.5 6 g 96.8 [degF] 110/60 mm[Hg] Olimpia [facility] [employer] [facility] 4 13:08:09 Date Recorded Body height Provider Name an d Address Organization Details Last Updated DateTime 09/13/2023 185.42 cm Olimpia [facility] [employer] [employer] [facility] 09/13/2023 11:44:34 Date Recorded Body mass index (BMI) Body weight Body temperature Systolic And Diastolic Provider Name and Address Organization Details Last Updated DateTime 09/13/2023 24.4 kg/m2 79086.87 g 96.8 [degF] 118/68 mm[Hg] [facility] [employer] [facility] 09/13/2023 12:08:32 Date Recorded Body height Body mass index (BMI) Body weight Body temperature Systolic And Diastolic Provider Name and Address Organization Details Last Updated DateTime 11/06/2023 185.42 cm 24.3 kg/m2 40154.4 3 g 97.2 [degF] 110/70 mm[Hg] Olimpia Davis [facility] [employer] 12:24:37 Social History Question Answer Notes LastModified by [employer] Details LastModified Time Tobacco Smoking Status Never Smoker Josie Ayala null, [facility] [employer] 04/13/2022 18:30:57 Are You Blind Or Do You Have Difficulty Seeing? No Information not available 04/13/2022 Are You Deaf Or Do You Have Serious Difficulty Hearing? No Information not available 04/13/2022 What Type Of Diet Are You Following? REGULAR Information not available 04/13/2022 How Many Children Do You Have? 2 Information not available 04/13/2022 What Is Your Relationship Status? Single Information not available 04/13/2022 Are You Sexually Active? No Information not available 04/13/2022 Sex: Unknown Functional Status Question Answer Note LastModified by [employer] Details LastModified Time Do you use any illicit or recreational drugs? No Information not available 04/13/2022 Do you or have you ever used any other forms of tobacco or nicotine? Yes Information not available 04/13/2022 What is your level of alcohol consumption? None Information not available 04/13/2022 Do you or have you ever used e-cigarettes or vape? Current user of electronic cigarettes Information not available 04/13/2022 What is your exercise level? None Information not available 04/13/2022 Mental Status None recorded. Family History Relationship Description Onset Age of this Age Resolved Age Notes LastModified by Organization Details LastModified Time Father No current problems or disability [email or web address] Not available 04/13 18:30:15 Mother No current problems or disability [email or web address] Not available 04/13 18:30:15 Medical History Condition Response High Blood Pressure Y Colon Cancer N Cytomegalovirus N Hyperthyroidism N Blood Transfusion N MRSA N Herpes (HSV) N Breast Cancer N Depression Y Hypothyroidism N Incontinence N Panic Attacks N Neurological Disorder N Deep Vein Thrombosis N Anxiety Disorder N Autoimmune disease N Arthritis Y Shingles N Tuberculosis/Positive PPD N Polycystic Ovarian Syndrome N Cervical Cancer Y Chlamydia N Hematuria N Stroke N Varicosities N Seasonal allergies N Crohn's Disease N Alzheimer's/Dementia N COPD/Emphysema N Endometriosis Y HPV/Genital Warts N IBS (Irritable Bowel Syndrome) Y History of Abnormal Pap N High Cholesterol Y Liver Disease N Kidney Infection N Fibromyalgia N Ulcer N Kidney Disease N HIV N Gallbladder disease N Von Willebrand disease N Sickle Cell Disease/Trait N ADD/ADHD Y Eating Disorder N Diabetes Mellitus (non-insulin dependent ) Y Anemia N Ovarian Problems N Multiple Sclerosis N Gonorrhea N Frequent Urinary Tract infections N Osteopenia N Headaches/migraines N GERD (reflux) Y Diabetes (insulin dependent) N Seizures/Epilepsy N Fibroids N Asthma N Heart Attack N Endometrial Cancer N Lupus N Rubella N Blood Clotting Disorder N Bipolar Disorder Y Diabetes Mellitus (during ) Y Ulcerative Colitis N Hepatitis N Heart Disease N Pulmonary Embolism N RPR N Chicken Pox Y Osteoporosis N Gynecological History Statement/Question Response If Post Menopausal, Age at Menopause 43 Date of Last Colonoscopy 12/19/2022 Date of last HPV 04/13/2022 Date of LMP Most Recent Bone Density HPV Vaccine N Date of Last Pap Smear 04/13/2022 Most Recent Mammogram 04/06/2022 Current Control Method Menopause Age at Menarche 13 Obstetrics History GPAL:G 3 P 2 0 1 2 Type Value Full Term 2 Induced 1 Living 2 Total 3 Past Encounters Encounter ID Performer Location Encounter Start Date Encounter Closed Date Diagnosis/Indication Diagnosis SNOMED-CT Code Diagnosis ICD10 Code Diagnosis Note [id number] RABIA Jay [facility] [address] [place] [address] 04/13/2022 17:09:33 04/14/2022 13:51:55 Gynecologic examination 11885866 Z01.419 WWE completedP ap with HPV obtainedCB E nml; discussed breast self-aware ness.Cardi ovascular health: discussed healthy diet and regular exercise.R outine labs-- by PCPComaribelln ca screening- scheduled in [facility]- recommend daily Ca++ with Vitamin D.Selwynin g concerns of rectovagin al fistula--N o fistula noted on pelvic exam Screening for malignant neoplasm of cervix [id number] Z12.4 Screening for malignant neoplasm of breast [id number] Z12.31 last mammogram Depression screening [id number] Z13.31 Screen negative [id number] [place] [facility] [address] [place] [address] 07/25/2023 12:25:18 07/26/2023 14:14:12 Vaginitis [id number] N76.0 Pain in pelvis [id number] R10.2 Pt is here with pelvic pain.--I have recommende d pelvic imaging and to rule out infection as cause for pelvic pain.--Rev iewed possible etiologies , physiologi c vs endo/adeno , fibroids, ovarian cyst--Poss ible etiology of pain reviewed with patient. 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 Pt is aware that if deciding with surgical management she will need to follow up with physician. --Discusse d generally benign nature of ovarian cysts -Schedule pelvic ultrasound -PA case sent-Sure swab Greater than thirty minutes spent with patient in consultati on (>50% face-to-fa ce). Patient labs and notes were reviewed. Patient questions were answered. Additional patient care was coordinate d. [id number] MARIANN LAZO DO [facility] [address] [place] [address] 08/15/2023 12:24:42 08/15/2023 14:22:42 Pain in pelvis [id number] R10.2 52 yo with chronic pelvic pain and constipati on due to IBS has new onset of pain start a few weeks following the start of a new IBS medication . Office Clerk hx notable to and h/o endometria l ablation. No change in urination, no vaginal bleeding. Has to splint to have BMGI is recommendi ng anal manometry and PFPTUS: 5 cm uterus w/ 4.9 mm emc b/l ovaries not visualized . Discussed with pt that pelvic pain likely GI related as it started following medication change. Overall US looks good. Due to emc being slightly thickened offered embx vs prometrium daily for 3 months and repeat US.pt electing for embx, will make appt Approximat tracie thirty minutes spent with patient in consultati on (>50% face-to-fa ce). Patient labs and notes were reviewed. Patient questions were answered. Additional patient care was coordinate felton [id number] MARIANN LAZO DO [facility] [address] [place] [address] 09/13/2023 11:41:32 09/13/2023 13:22:15 Candidal vulvovaginitis [id number] B37.31 Pt takes jardiance for T2DM vulva and perineum severely irritated, combinatio n of yeast infection on top of lichen sclerosuse vidence of perineal tear Lichen scl erosus of vulva [id number] N90.4 [id number] MARIANN LAZO DO [facility] [address] [place] [address] 11/06/2023 12:06:01 11/06/2023 14:47:44 Candidal vulvovaginitis [id number] B37.31 Pt takes jardianceC andida infection resolved, discussed with patient about talking to PCP to change from jardiance as it will affect management of her lichen sclerosus Lichen scl erosus of vulva [id number] N90.4 RTO in 3 months for evaluation of lichen Endometrium thickened 44 [id number] R93.89 Postmenopa usal w/ incidental finding on TVUS in August demonstrat ed 0.49 cm w/o any bleedingdi scussed emb vs cylical prometrium for 3 months and repeat USpt elects to do cyclical prometrium Health Concerns Section Related Observation LastModified by Organization Detai ls LastModified Time None Recorded Concern Status LastModified by Organization Details LastModified Time None Recorded Advance Directives Directive None Recorded Payers Insurance Date Sequence Insurance Name Policy Number Policy Mejia Covered Member ID Mejia Member ID Guarantor Name 11/06/2023 1 [facility] [place] [facility] [place] Mona Dukes [id number] Mona Dukes 11/06/2023 2 [facility] (H[facility] Mona Dukes [id number] Mona Dukes 08/15/2023 2 [facility] Mona Johnathan [id number] Mona Dukes 08/15/2023 1 [employer] [facility] [place] [facility] ON OR AFTER 01/21/2020 (MEDICAID REPLACEMENT - HMO) Mona Johnathan [id number] Mona Dukes Notes Date Note Type Note Provider Name and Address Organization Details Recorded Time 04/13/2022 text/html Annual Office Clerk Post-MenopausalRepor vladimir bypatient.Menopausal Symptoms:no menopausal symptoms; normal vaginal lubrication Vaginal Bleeding:history of menopause having occurred; no history of post menopausal bleeding Urinary Symptoms:no hematuria; no incontinence; no nocturia; no urinary frequency Vulva:no genital lesion; no vulvar atrophy Vagina:normal vaginal discharge; no vaginal atrophy Breast:no breast lump; no nipple discharge; no breast pain Sexual Complaints:no sexual complaints Psychological Symptoms:no depression; no anxiety Mona presents for her WWE with pap. She reports seeing GI for chronic constipation issues. States she feels her stool get stuck close to her anus and when she presses on her lower abdomen, she can fell a bulge. States her GI told her to be evaluated to a rectovaginal fistula. Menopause at age 44. Reports hot flashes for the past 6 months. RABIA Jay [address] [facility], [place], [address], [facility] 04/13/2022 19:24:54 07/25/2023 text/html Annual GYNReport ed bypatient.Menstrual cycle:Normal menses Urinary symptoms:No hematuria; No incontinence Vulva:No genital lesion Vagina:Normal vaginal discharge Breast:No breast pain; No breast lump; No nipple discharge Sexual complaints:No sexual complaints; No pain during intercourse; Normal libido Menopausal Symptoms:No menopausal symptoms; Normal vaginal lubrication Psychological symptoms:No depression; No anxiety; No PMDD Mona presents for WWE but is having issues with pelvic pain. Patient states she is having pain in her lower pelvis mostly around her C/S incision. Patient states she has pain anytime she has a bowel movement and if she bends forward. Patient reports that she is being followed by GI specialist and was recently dx with IBS and pelvic floor dysfunction. Patient states GI wants patient to complete a Anorectal manometry and depending on results they are planning to send to PFPT. There was issues with insurance and she sees a new GI next week. Patient also reports hx of endometriosis. Had ablation 24 years ago due to heavy bleeding issues as well. Patient requesting to address pain issues and will reschedule WWE. FREIDA MCWILLIAMS, DOCUMENT PHOTOGRAPHER [address] [facility], [place], [address], [employer] [facility] 07/25/2023 21:02:42 08/15/2023 text/html Patient presents today for pelvic pain follow up. She had TVUS today. she Patient endorses pain in her lower pelvis mostly around her C/S incision. Pain is present anytime she has a bowel movement and if she bends forward. Patient reports that she is being followed by GI specialist and was recently dx with IBS and pelvic floor dysfunction. Patient states GI wants patient to complete a Anorectal manometry and depending on results they are planning to send to PFPT. There was issues with insurance and she sees a new GI next week. Patient also reports hx of endometriosis. Had ablation 24 years ago due to heavy bleeding issues as well. MARIANN LAZO DO [facility] [facility], [place], [address], [employer] [facility] 08/15/2023 14:18:20 09/13/2023 text/html Mona in office fo r perineal tearstates she tore while having a bowel movementstates she's had it for a couple of weekspt states very painful MARIANN LAZO DO [facility] [facility], [place], [address], [employer] [facility] 09/13/2023 13:19:01 11/06/2023 text/html Mona is a 52 y/o female. She is f/u on lichen sclerosus of vulva. Pt had a tear at last visit. Was given cream. States it started to help a little but now she has cracked labia. More constipation which she thinks is relevant to the vaginal issue. MARIANN LAZO DO [address] [facility], [place], [address], [employer] [facility] 11/06/2023 14:25:33 OBGyn Episode No OBEpisode recorded.
--- OUTSIDE RECORDS SUMMARY | 2024-07-16 05:35 | XMS_ITS ---
Author Organization 1 OF [facility] Address [address] [address] Care Team Providers Care Multiple Coil Winder Name Role Phone Arina Presley Primary Care Provider Tereza Ramirez Unavailable [phone] Allergies Allergen (clinical drug ingredient) Drug/Non Drug Allergy documented on EMR Reaction Allergy Type Onset Date Status minocycline Minocycline Unknown Drug Allergy Act rere REASON FOR VISIT broke pinky toe on LT foot/diabetic/bone pain in bilateral feet Medications Medication SIG (Take, Route, Frequency, Duration) Notes Start Date End Date Status Jardiance Active Magnesium Active Trulicity Active metFORMIN HCl Active Gabapentin Active Multivitamin Active CeleXA Active Calcium Active B12 Active LaMICtal Active SEROquel Active Problems Problem Type SNOMED Code ICD Code Onset Dates Problem Status W/U Status Risk Notes Problem 97499292 Type 2 diabetes mellitus with other diabetic neurological complication (E11.49) Active confirmed Vital Signs Height 73 in 04/27/2023 Weight 145 lbs 04/27/2023 BMI 19.13 kg/m2 04/27/2023 Encounters Encounter Location Date Provider Diagnosis 1 OF [facility] [address] [place] [address] 04/27/2023 Tereza Ramirez Nerve pain M79.2 ; T ype 2 diabetes mellitus with other diabetic neurological complication E11.49 ; Closed nondisplaced fracture of proximal phalanx of lesser toe of left foot with routine healing, subsequent encounter S92.515D ; Right foot pain M79.671 ; Left foot pain M79.672 and Onychogryphosis L60.2 Assessments Encounter Date Diagnosis (ICD Code) Assessment Notes Treatment Notes Treatment Clinical Notes Section Notes 04/27/2023 Nerve pain (ICD-10 - M79.2) Discussed signs and symptoms of peripheral neuropathy associated with diabetes. Discussed treatment options including topical and oral medications. I advised that some of her pain could be due to her lower back as well due to a radiculopathy. She was advised that she should take her oral medications consistently, in order to try to see results. I discussed the option of trying topical pain medication, however she declined a prescription for this. I discussed the option of getting a nerve conduction study test, however she would like to continue with treatments for her back.All questions and concerns were addressed. 04/27/2023 Type 2 diabetes mellitus with other diabetic neurological complication (ICD-10 - E11.49) Diabetic foot education was discussed including the nature of increased risk of developing foot problems due to the damage nerves and vessels of the feet caused by diabetes. The importance of daily self foot exams was stressed. Additionally, the patient was encouraged to control the blood sugar as well as possible and I explained the direct correlation between the incidence of diabetic foot complications and how well the blood sugar is controlled. I encouraged the patient to walk for exercise to help improve circulation to the feet as well as to help control excess blood sugar which I explained may also help to reduce or slow the progression of neuropathy symptoms. Additionally I recommended daily application of lotion to the feet to keep skin well hydrated. Advised to avoid walking w/o shoes on and discussed the importance of wearing properly fitted and supportive shoes and how wearing a shoe that does not fit properly can lead to blisters, open sores, infections and amputation. Literature regarding diabetic foot care was dispensed. 04/27/2023 Closed nondisplaced fracture of proximal phalanx of lesser toe of left foot with routine healing, subsequent encounter (ICD-10 - S92.515D) Patient visit today included a review of medical history, review of systems, physical exam and discussion of exam findings, diagnostic test results, and discussion of diagnoses and treatment options. Recommended initial treatment today consisting of continuing to wear good supportive shoes. She can rest and ice the foot as needed for pain. Her fracture is healing well. 04/27/2023 Right foot pain (ICD-10 - M79.671) 04/27/2023 Left foot pain (ICD-10 - M79.672) 04/27/2023 Onychogryphosis (ICD-10 - L60.2) Considering the associated comorbidities and physical exam findings today, this patient is at substantial risk of developing serious foot complications in the absence of regular and professional palliative foot care. Plan Of Treatment Treatment Notes Assessment Notes Nerve pain Discussed signs and symptoms of peripheral neuropathy associated with diabetes. Discussed treatment options including topical and oral medications. I advised that some of her pain could be due to her lower back as well due to a radiculopathy. She was advised that she should take her oral medications consistently, in order to try to see results. I discussed the option of trying topical pain medication, however she declined a prescription for this. I discussed the option of getting a nerve conduction study test, however she would like to continue with treatments for her back.All questions and concerns were addressed. Type 2 diabetes mellitus wit h other diabetic neurological complication Diabetic foot education was discussed including the nature of increased risk of developing foot problems due to the damage nerves and vessels of the feet caused by diabetes. The importance of daily self foot exams was stressed. Additionally, the patient was encouraged to control the blood sugar as well as possible and I explained the direct correlation between the incidence of diabetic foot complications and how well the blood sugar is controlled. I encouraged the patient to walk for exercise to help improve circulation to the feet as well as to help control excess blood sugar which I explained may also help to reduce or slow the progression of neuropathy symptoms. Additionally I recommended daily application of lotion to the feet to keep skin well hydrated. Advised to avoid walking w/o shoes on and discussed the importance of wearing properly fitted and supportive shoes and how wearing a shoe that does not fit properly can lead to blisters, open sores, infections and amputation. Literature regarding diabetic foot care was dispensed. Closed nondisplaced fracture of proximal phalanx of lesser toe of left foot with routine healing, subsequent encounter Patient visit today included a review of medical history, review of systems, physical exam and discussion of exam findings, diagnostic test results, and discussion of diagnoses and treatment options. Recommended initial treatment today consisting of continuing to wear good supportive shoes. She can rest and ice the foot as needed for pain. Her fracture is healing well. Onychogryphosis Considering the asso ciated comorbidities and physical exam findings today, this patient is at substantial risk of developing serious foot complications in the absence of regular and professional palliative foot care. Next Appt Details Follow Up: 6 Months,prn, Wandy son: Procedure Notes * Category Sub-Category Detail Notes PALLIATIVE FOOT CARE: Nail debride (87760): Debr idement of five or less mycotic and/or hypertrophic nails, utilizing manual and electric debridement the affected nails were reduced the nails in length and thickness with curettage of debris from nail margins performed as needed. Nail thickness reduced by:, 10% Progress Notes * KRYSTALHAVENAlicja MonaDOB:1970 (52 yo F)Acc No.[id number]:04/27/2023 Patient: Mona UNDERWOOD Provider: Alicja Ramirez DPM :1970 A ge:52 Y S ex:Female Date:04/27/2023 Address:[address] [place] [address], [id number] Pcp:Arina Presley Subjective: * Chief Complaints: * b roke pinky toe on LT foot/diabetic/bone pain in bilateral feet * HPI: Jolene Todd assisting with visit:: HPI/Rooming: Jolene prabhakar. Luis evans reason for visit:: New Patient Evaluation: [age] year old diabetic female, referred by Arina Guy, PTO with chief complaint of a broken left fifth toe and B/L foot pain. She also has pain on the R T toenails and they are growing upwards of 4 months duration aggravated by shoes and prolonged standing/walking. She states that she gets an ice cold feeling in both feet and they tend to turn purple at night. She does have sharp, electrical sensations rated 7/10 of both feet. She currently takes gabapentin but she is not sure she needs to take it consistently. She does have lower back issues. She does not know her last A1c.. * ROS: G ENERAL: NAUSEA, FEVER OR CHILLS d enies, d enies. U NEXPLAINED LOSS OR GAIN OF WEIGHT d enies. U NEXPLAINED FATIGUE OR LACK OF ENERGY admits.?RECENT FALL d enies. P ERIPHERAL VASCULAR: FATIGUE IN CALF MUSCLE WHILE WALKING d enies. P AIN, SWELLING OR FEELING OF TIGHTNESS IN LEG admits. F REQUENT OR CHRONIC SWELLING OF LEGS d enies. T OES TURN BLUE, WHITE, PAINFUL WITH COLD TEMPERATURE admits. N EUROLOGICAL: DIZZINESS, LIGHT HEADED OR FAINTING d enies. W EAKNESS OR PARALYSIS d enies. D IFFICULTY WITH BALANCE admits. P ERIPHERAL NEUROLOGICAL: BURNING, TINGLING, STINGING SENSATION OF FEET admits.?NUMBNESS OF FOOT / FEET a dmits. W EAKNESS OF FOOT / FEET admits. G ASTROINTESTINAL: ABDOMINAL PAIN d enies. B LOODY STOOL d enies. F REQUENT HEARTBURN d enies. F REQUENT NAUSEA OR VOMITING d enies. S KIN: EXCESSIVE SWEATING OF FEET / HANDS d enies. C HRONIC OR RECURRENT SKIN RASH d enies. N ONHEALING SKIN LESIONS d enies. T ENDENCY TO FORM THICK SCARS (KELOIDS) d enies. M USCULOSKELETAL: LOW BACK PAIN admits. H IP PAIN admits. K NEE PAIN d enies. S WELLING / STIFFNESS JOINTS OF HANDS / FEET d enies. E NDOCRINE: DELAYED HEALING OF WOUNDS d enies. I NTOLERANCE TO HEAT OR COLD d enies. E XCESSIVE THIRST d enies. F REQUENT URINATION d enies. ? H EMATOLOGY/ONCOLOGY: ANEMIA d enies. B LEED or BRUISE EASILY d enies.?ANTI-COAGULANT USE d enies. * Medical History: * Surgical History: N o Surgical History documented. * Hospitalization/Major Diagno stic Procedure: * Family History: N o Family History documented.. * Social History: chuy [place]a. * Medications: T akingSEROquel LaMICtal CeleXA Multivitamin B12 Calcium Magnesium Jardiance metFORMIN HCl Trulicity Gabapentin Medication List reviewed and reconciled with the patientTaking SEROquel Taking LaMICtal Taking CeleXA Taking Multivitamin Taking B12 Taking Calcium Taking Magnesium Taking Jardiance Taking metFORMIN HCl Taking Trulicity Taking Gabapentin Medication List reviewed and reconciled with the patient * Allergies: M inocyclineno[Allergies Verified] Objective: * Vitals: W t:145lbs, Wt-k.77 kg, Ht: 73 in, BMI:19.13Index. * Examination: G eneral Examination: Constitutional / Appearance: N o acute distress , Well nourished, Appropriate personal hygiene. Mental status: C ooperative, Oriented to person, place and time, Mood and affect: normal, Judgement and intellect: normal with appropriate response to questions. Shoes today: t audi shoes. L ower Extremity VASCULAR: : Pulses: D P and PT pulses, diminished, bilateral. Temperature gradient: S lightly decreased from proximal to distal, bilateral. Pedal hair: s parse / absent, bilateral. Capillary refill at distal toes l ess than 3 seconds, bilateral. L ower Extremity DERM: : Skin: n o suspicious lesions, without interdigital maceration,no open sores, bilateral. Nails: N ail plates of T7, T8 and T9 are elongated, thickened, dystrophic, slightly discolored, with subungual debris and some discomfort. All other nails are well trimmed.. Hyperkeratotic lesions LEFT foot: n o significant hpk lesions noted. Hyperkeratotic lesions RIGHT foot: n o significant hpk lesions noted. L ower Extremity NEURO: : General sensation appears h ypersensitive, bilateral. Monofilament test (10 gram pressure) E xam of 04/27/2023:?revealed absent sensation to at least two distinct locations of, entire foot, bilateral. Vibration perception: E xam of 04/27/2023: n oted significantly diminished / absent per evaluation with 128Hz tuning fork applied to distal hallux compared to ipsilateral medial malleolus @ bilateral feet. L ower Extremity MSK: : Foot type: B ilateral lower extremity exhibits r elatively decreased medial arch. Muscle strength: 5 /5, all 4 quadrants tested, bilateral.? Left lower extremity inspection and palpation: N o palpable masses or nodules noted. Minimal discomfort with palpation of the left fifth toe. Digit is aligned at the MPJ. Patient can dorsiflex and plantarflex digits. No other significant pain with diffuse palpation of the foot and ankle. Adequate range of motion noted to the joints.. Right lower extremity inspection and palpation: N o palpable masses or nodules noted. Unable to re-create any specific pain with diffuse palpation of the foot and ankle. Adequate range of motion noted to the joints.. D iagnostic Studies: : X-rays of left lower extremity: 3 views ofleftfoot: Significant findings include: There is a healing fracture noted to the base of the fifth toe proximal phalanx. No significant displacement or malalignment noted. Fifth digit is aligned at the MPJ. Joint spaces are relatively aligned. Slightly decreased calcaneal inclination angle.. X-rays of right lower extremity: 3 views ofrightfoot: , Significant findings include: No acute fractures or dislocations noted. Joint spaces are relatively aligned. Slightly decreased calcaneal inclination angle.. ? Assessment: * Assessment: 1. T ype 2 diabetes mellitus with other diabetic neurological complication - E11.49 (Primary)?2. N erve pain - M79.2 3 . C losed nondisplaced fracture of proximal phalanx of lesser toe of left foot with routine healing, subsequent encounter - S92.515D 4 . R ight foot pain - M79.671 5 . L eft foot pain - M79.672 6 . O nychogryphosis - L60.2 Plan: * Treatment: 2. N erve pain Notes: Discussed signs and symptoms of peripheral neuropathy associated with diabetes. Discussed treatment options including topical and oral medications. I advised that some of her pain could be due to her lower back as well due to a radiculopathy. She was advised that she should take her oral medications consistently, in order to try to see results. I discussed the option of trying topical pain medication, however she declined a prescription for this. I discussed the option of getting a nerve conduction study test, however she would like to continue with treatments for her back.All questions and concerns were addressed. 3. C losed nondisplaced fracture of proximal phalanx of lesser toe of left foot with routine healing, subsequent encounter Notes: Patient visit today included a review of medical history, review of systems, physical exam and discussion of exam findings, diagnostic test results, and discussion of diagnoses and treatment options. Recommended initial treatment today consisting of continuing to wear good supportive shoes. She can rest and ice the foot as needed for pain. Her fracture is healing well. 4. O nychogryphosis Notes: Considering the associated comorbidities and physical exam findings today, this patient is at substantial risk of developing serious foot complications in the absence of regular and professional palliative foot care. * Procedures: P ALLIATIVE FOOT CARE:: Nail debride (28144): D ebridement of five or less mycotic and/or hypertrophic nails, utilizing manual and electric debridement the affected nails were reduced the nails in length and thickness with curettage of debris from nail margins performed as needed. Nail thickness reduced by:, 10%. * Procedure Codes: 7 3630 X-RAY FOOT (3 views), [place]: [place] [address]66 X-RAY FOOT (3 views), Modifiers: [place] [address]41 DEBRIDE NAIL, 1-5 * Follow Up: 6 Months,prn * Images: * Sign off status: Completed true * Provider: Alicja Ramirez DPM Date: 04/27/2023 Generated for Yaakov caruso/Bhavana/Bart on: 07/16/2024 05:35 AM CDT History and Physical Notes * HPI (History of Present Illness) Category Sub-Category Detail Notes Category Not es Primary reason for visit: New Patient Evaluation: 52 year old diabetic female, referred by KAROLINA Enriquez with chief complaint of a broken left fifth toe and B/L foot pain. She also has pain on the RT toenails and they are growing upwards of 4 months duration aggravated by shoes and prolonged standing/walking. She states that she gets an ice cold feeling in both feet and they tend to turn purple at night. She does have sharp, electrical sensations rated 7/10 of both feet. She currently takes gabapentin but she is not sure she needs to take it consistently. She does have lower back issues. She does not know her last A1c. MA assisting with visit: HPI/Rooming: Chandrika Examination Category Sub-Category Detail Notes Category Not es General Examination Mental status: Cooperative, Oriented to person, place and time, Mood and affect: normal, Judgement and intellect: normal with appropriate response to questions Shoes today: tennis shoes Constitutional / Appearance: No acute di stress , Well nourished, Appropriate personal hygiene Lower Extremity VASCULAR: Pulses: DP and PT pulse s, diminished, bilateral Temperature gradient: Slightly decreased from proximal to distal, bilateral Pedal hair: sparse / absent, tamia ateral Capillary refill at distal toes less aj n 3 seconds, bilateral Lower Extremity NEURO: Monofilament test (10 gram pressure) Exam of 04/27/2023: revealed absent sensation to at least two distinct locations of, entire foot, bilateral Vibration perception: Exam of 04/27/2023 : noted significantly diminished / absent per evaluation with 128Hz tuning fork applied to distal hallux compared to ipsilateral medial malleolus @ bilateral feet General sensation appears hypersensitive , bilateral Lower Extremity MSK: Muscle strength: 5/5, all 4 quadr ants tested, bilateral Foot type: Bilateral lower extr emity exhibits relatively decreased medial arch Left lower extremity inspect ion and palpation: No palpable masses or nodules noted. Min imal discomfort with palpation of the left fifth toe. Digit is aligned at the MPJ. Patient can dorsiflex and plantarflex digits. No other significant pain with diffuse palpation of the foot and ankle. Adequate range of motion noted to the joints. Right lower extremity inspec tion and palpation: No palpable masses or nodules noted. Aylin ble to re-create any specific pain with diffuse palpation of the foot and ankle. Adequate range of motion noted to the joints. Diagnostic Studies: X-rays of left lower extremi ty: 3 views of left foot: Significant findings include: There is a healing fracture noted to the base of the fifth toe proximal phalanx. No significant displacement or malalignment noted. Fifth digit is aligned at the MPJ. Joint spaces are relatively aligned. Slightly decreased calcaneal inclination angle. X-rays of right lower extremity: 3 views of right foot: , Significant findings include: No acute fractures or dislocations noted. Joint spaces are relatively aligned. Slightly decreased calcaneal inclination angle. Lower Extremity DERM: Skin: no suspici ous lesions, without interdigital maceration,no open sores, bilateral Nails: Nail plates of T7, T 8 and T9 are elongated, thickened, dystrophic, slightly discolored, with subungual debris and some discomfort. All other nails are well trimmed. Hyperkeratotic lesions LEFT foot: no sig nificant hpk lesions noted Hyperkeratotic lesions RIGHT foot: no si gnificant hpk lesions noted
--- OUTSIDE RECORDS SUMMARY | 2024-07-16 05:35 | XMS_ITS | Patient Health Record ---
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 VM left requesting a return call., Kwabena Ye 08/02/2023 08:49:24 AM >HN PW attempted to contact consumer regarding referral. HAILEY left requesting a return call., Kwabena Ye 08/03/2023 11:33:58 AM >HN PW returned call to consumer regarding referral. Consumer stated she was a little confused because she already has a therapist and has shared this information with provider. Consumer stated she just saw her therapist, Shirin Sanders last week. Consumer is not in agreement with therapy referral and stated no additional therapy assistance/services is needed at this time. Case addressed and closed. Referral Priority Routine Medications Medication SIG (Take, Route, Frequency, Duration) Notes Start Date End Date Status DULoxetine HCl 20 MG 1 capsule Orally On ce a day for 30 days Active Aspirin 81 81 MG 1 tablet Orally Once a day for 30 day(s) Not-Taking Gabapentin 300 MG 1 tablet Orally thre e times a day for 30 days Active Ezetimibe 10 MG 1 tablet Orally Once a day Active Lantus 100 UNIT/ML as directed Subcutaneous Not-Taking Ozempic Active Cetirizine HCl 10 MG 1 tablet as needed Orally Once a day for 30 day(s) Not-Taking Pantoprazole Sodium 40 MG 1 tablet 1/2 to 1 hour before morning meal Orally twice daily Active Loratadine 10 MG 1 tablet Orally Once a day Not-Taking Eszopiclone 2 MG TAKE 1 TABLET BY JAYLEEN TH ONCE DAILY IMMEDIATELY BEFORE BEDTIME for 30 12/13/2022 Not-Taking Trulicity Not-Taking QUEtiapine Fumarate 400 MG 1 tablet at bedtime Orally Once a day for 30 days Active Atorvastatin Calcium Not-Taking Eszopiclone 3 MG 1 tablet immediately before bedtime Orally Once a day for 30 days 05/14/2024 Active Metoprolol Succinate 50 MG as directed Orally Not-Takin g lamoTRIgine 100 MG 1 tablet Orally twic e a day for 30 days Active metFORMIN HCl 500 MG 1 tablet with a rory l Orally twice a day Not-Taking Jardiance 10 MG 1 tablet Orally Once a day for 30 day(s) Not-Taking Social History Tobacco Use: Social History Observation Description Date Details (start date - stop date) Former Smoker NA - 12/30/2023 Sex Assigned At : Social History Observation Description Sex Assigned At Female PRAPARE Question Answer Notes Date Completed/Updated: 07/10/2024 What is your current housing situation? I have h ousing Are you worried about losing your housing? No What is the highest level of school that you have finished? 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 Check all that apply I do not have problems meeting my needs Has lack of transportation k ept you from medical appointments, meetings, work or from getting things needed for daily living? No How often do you see or talk to people that you care about and feel close to? (For example: talking to friends on the phone, visiting friends or family, going to restorationism or club meetings) More than 5 times a week How stressed are you? Stress is when someone feels tense, nervous, anxious, or can\t sleep at night because their mind is troubled Somewhat In the past year have you sp ent more than 2 nights in a row in a long-term, snf, fci center, or juvenile correctional facility? No Do you feel physically and e motionally safe where you currently live? Yes In the past year, have you b een afraid of your partner or ex-partner? No PRAPARE Score: 4 Tobacco Control (Standard) Question Answer Notes Tobacco use: Former smoker When did you stop smoking? 12/30/2023 How long has it been since you last smoked? Less than 1 month Additional Findings: Tobacco user e-cigarette Section Notes: SOCIAL HISTORY: Alcohol:No use since 04/2021 Marijuana: Last use: 10 years cocaine:v10 years ago Heroin: Denies Meth: Denies LSD/PCP: Denies IV drugs : Denies OTC/Rx drugs: Multivitamin, Vitamin D location: [place], [place] Current home location: [place], [place] Who lives at home: Roommate Di Siblings: Children: Son: 24 years old - Bipolar Daughter: 34 years old - Bipolar Siblings: 2 sisters - healthy Relationships: Single; close with children (2-3 words) Describe childhood: My childhood was pretty lonely, my mom cried a lot; she had her own mental illness (physical/verbal/mental/sexual) Abuse/Trauma: Denies Education: College courses Occupation/Job history: Works FT at [employer] Hobbies/Interests: [employer], garden, read Social Activities: Spend time with kids and AA sponsor Spiritual Affiliation: I believe in God but do not go to restorationism Probation/Legal trouble/: DUI - 5-8 years ago SOCIAL HISTORY: Alcohol:No use since 04/2021 Marijuana: Last use: 10 years cocaine:v10 years ago Heroin: Denies Meth: Denies LSD/PCP: Denies IV drugs : Denies OTC/Rx drugs: Multivitamin, Vitamin D location: [place], [place] Current home location: [place], [place] Who lives at home: Roommate Di Siblings: Children: Son: 24 years old - Bipolar Daughter: 34 years old - Bipolar Siblings: 2 sisters - healthy Relationships: Single; close with children (2-3 words) Describe childhood: My childhood was pretty lonely, my mom cried a lot; she had her own mental illness (physical/verbal/mental/sexual) Abuse/Trauma: Denies Education: College courses Occupation/Job history: Works FT at [employer]/Interests: [employer] Social Activities: Spend time with kids and AA sponsor Spiritual Affiliation: I believe in God but do not go to restorationism Probation/Legal trouble/: DUI - 5-8 years ago SOCIAL HISTORY: Alcohol:No use since 04/2021 Marijuana: Last use: 10 years cocaine:v10 years ago Heroin: Denies Meth: Denies LSD/PCP: Denies IV drugs : Denies OTC/Rx drugs: Multivitamin, Vitamin D location: [place], [place] Current home location: [place], [place] Who lives at home: Roommate Di Siblings: Children: Son: 24 years old - Bipolar Daughter: 34 years old - Bipolar Siblings: 2 sisters - healthy Relationships: Single; close with children (2-3 words) Describe childhood: My childhood was pretty lonely, my mom cried a lot; she had her own mental illness (physical/verbal/mental/sexual) Abuse/Trauma: Denies Education: College courses Occupation/Job history: Works FT at [employer]/Interests: [employer] Social Activities: Spend time with kids and AA [employer] Spiritual Affiliation: I believe in God but do not go to restorationism Probation/Legal trouble/: DUI - 5-8 years ago SOCIAL HISTORY: Alcohol:No use since 04/2021 Marijuana: Last use: 10 years cocaine:v10 years ago Heroin: Denies Meth: Denies LSD/PCP: Denies IV drugs : Denies OTC/Rx drugs: Multivitamin, Vitamin D location: [place], [place] Current home location: [place], [place] Who lives at home: Roommate Di Siblings: Children: Son: 24 years old - Bipolar Daughter: 34 years old - Bipolar Siblings: 2 sisters - healthy Relationships: Single; close with children (2-3 words) Describe childhood: My childhood was pretty lonely, my mom cried a lot; she had her own mental illness (physical/verbal/mental/sexual) Abuse/Trauma: Denies Education: College courses Occupation/Job history: Works FT at [employer]/Interests: [employer], [employer], read Social Activities: Spend time with kids and AA sponsor Spiritual Affiliation: I believe in God but do not go to restorationism Probation/Legal trouble/: DUI - 5-8 years ago SOCIAL HISTORY: Alcohol:No use since 04/2021 Marijuana: Last use: 10 years cocaine:v10 years ago Heroin: Denies Meth: Denies LSD/PCP: Denies IV drugs : Denies OTC/Rx drugs: Multivitamin, Vitamin D location: [place], [place] Current home location: [place], [place] Who lives at home: Roommate Di Siblings: Children: Son: 24 years old - Bipolar Daughter: 34 years old - Bipolar Siblings: 2 sisters - healthy Relationships: Single; close with children (2-3 words) Describe childhood: My childhood was pretty lonely, my mom cried a lot; she had her own mental illness (physical/verbal/mental/sexual) Abuse/Trauma: Denies Education: College courses Occupation/Job history: Works FT at [employer]/Interests: [employer], [employer], read Social Activities: Spend time with kids and AA sponsor Spiritual Affiliation: I believe in God but do not go to restorationism Probation/Legal trouble/: DUI - 5-8 years ago SOCIAL HISTORY: Alcohol:No use since 04/2021 Marijuana: Last use: 10 years cocaine:v10 years ago Heroin: Denies Meth: Denies LSD/PCP: Denies IV drugs : Denies OTC/Rx drugs: Multivitamin, Vitamin D location: [place], [place] Current home location: [place], [place] Who lives at home: Roommate Id Siblings: Children: Son: 24 years old - Bipolar Daughter: 34 years old - Bipolar Siblings: 2 sisters - healthy Relationships: Single; close with children (2-3 words) Describe childhood: My childhood was pretty lonely, my mom cried a lot; she had her own mental illness (physical/verbal/mental/sexual) Abuse/Trauma: Denies Education: College courses Occupation/Job history: Works FT at [employer]/Interests: [employer], garden, read Social Activities: Spend time with kids and AA sponsor Spiritual Affiliation: I believe in God but do not go to restorationism Probation/Legal trouble/: DUI - 5-8 years ago SOCIAL HISTORY: Alcohol:No use since 04/2021 Marijuana: Last use: 10 years cocaine:v10 years ago Heroin: Denies Meth: Denies LSD/PCP: Denies IV drugs : Denies OTC/Rx drugs: Multivitamin, Vitamin D location: [place], [place] Current home location: [place], [place] Who lives at home: Roommate Di Siblings: Children: Son: 24 years old - Bipolar Daughter: 34 years old - Bipolar Siblings: 2 sisters - healthy Relationships: Single; close with children (2-3 words) Describe childhood: My childhood was pretty lonely, my mom cried a lot; she had her own mental illness (physical/verbal/mental/sexual) Abuse/Trauma: Denies Education: College courses Occupation/Job history: Works FT at [employer]/Interests: [employer], [employer], [employer] Social Activities: Spend time with kids and AA sponsor Spiritual Affiliation: I believe in God but do not go to restorationism Probation/Legal trouble/: DUI - 5-8 years ago SOCIAL HISTORY: Alcohol:No use since 04/2021 Marijuana: Last use: 10 years cocaine:v10 years ago Heroin: Denies Meth: Denies LSD/PCP: Denies IV drugs : Denies OTC/Rx drugs: Multivitamin, Vitamin D location: [place], [place] Current home location: [place], [place] Who lives at home: Roommate Di Siblings: Children: Son: 24 years old - Bipolar Daughter: 34 years old - Bipolar Siblings: 2 sisters - healthy Relationships: Single; close with children (2-3 words) Describe childhood: My childhood was pretty lonely, my mom cried a lot; she had her own mental illness (physical/verbal/mental/sexual) Abuse/Trauma: Denies Education: College courses Occupation/Job history: Works FT at [employer]/Interests: [employer], [employer], read Social Activities: Spend time with kids and AA sponsor Spiritual Affiliation: I believe in God but do not go to restorationism Probation/Legal trouble/: DUI - 5-8 years ago SOCIAL HISTORY: Alcohol:No use since 04/2021 Marijuana: Last use: 10 years cocaine:v10 years ago Heroin: Denies Meth: Denies LSD/PCP: Denies IV drugs : Denies OTC/Rx drugs: Multivitamin, Vitamin D location: [place], [place] Current home location: [place], [place] Who lives at home: Roommate Di Siblings: Children: Son: 24 years old - Bipolar Daughter: 34 years old - Bipolar Siblings: 2 sisters - healthy Relationships: Single; close with children (2-3 words) Describe childhood: My childhood was pretty lonely, my mom cried a lot; she had her own mental illness (physical/verbal/mental/sexual) Abuse/Trauma: Denies Education: College courses Occupation/Job history: Works FT at [employer]/Interests: [employer], [employer] Social Activities: Spend time with kids and AA [employer] Spiritual Affiliation: I believe in God but do not go to restorationism Probation/Legal trouble/: DUI - 5-8 years ago SOCIAL HISTORY: Alcohol:No use since 04/2021 Marijuana: Last use: 10 years cocaine:v10 years ago Heroin: Denies Meth: Denies LSD/PCP: Denies IV drugs : Denies OTC/Rx drugs: Multivitamin, Vitamin D location: [place], [place] Current home location: [place], [place] Who lives at home: Roommate Di Siblings: Children: Son: 24 years old - Bipolar Daughter: 34 years old - Bipolar Siblings: 2 sisters - healthy Relationships: Single; close with children (2-3 words) Describe childhood: My childhood was pretty lonely, my mom cried a lot; she had her own mental illness (physical/verbal/mental/sexual) Abuse/Trauma: Denies Education: College courses Occupation/Job history: Works FT at [employer]/Interests: [place], read Social Activities: Spend time with kids and AA [employer] Spiritual Affiliation: I believe in God but do not go to restorationism Probation/Legal trouble/: DUI - 5-8 years ago SOCIAL HISTORY: Alcohol:No use since 04/2021 Marijuana: Last use: 10 years cocaine:v10 years ago Heroin: Denies Meth: Denies LSD/PCP: Denies IV drugs : Denies OTC/Rx drugs: Multivitamin, Vitamin D location: [place], [place] Current home location: [place], [place] Who lives at home: Roommate Di Siblings: Children: Son: 24 years old - Bipolar Daughter: 34 years old - Bipolar Siblings: 2 sisters - healthy Relationships: Single; close with children (2-3 words) Describe childhood: My childhood was pretty lonely, my mom cried a lot; she had her own mental illness (physical/verbal/mental/sexual) Abuse/Trauma: Denies Education: College courses Occupation/Job history: Works FT at [employer]/Interests: [employer], [employer], read Social Activities: Spend time with kids and AA sponsor Spiritual Affiliation: I believe in God but do not go to restorationism Probation/Legal trouble/: DUI - 5-8 years ago SOCIAL HISTORY: Alcohol:No use since 04/2021 Marijuana: Last use: 10 years cocaine:v10 years ago Heroin: Denies Meth: Denies LSD/PCP: Denies IV drugs : Denies OTC/Rx drugs: Multivitamin, Vitamin D location: [place], [place] Current home location: [place], [place] Who lives at home: Roommate Di Siblings: Children: Son: 24 years old - Bipolar Daughter: 34 years old - Bipolar Siblings: 2 sisters - healthy Relationships: Single; close with children (2-3 words) Describe childhood: My childhood was pretty lonely, my mom cried a lot; she had her own mental illness (physical/verbal/mental/sexual) Abuse/Trauma: Denies Education: College courses Occupation/Job history: Works FT at [employer]/Interests: [employer], [employer], read Social Activities: Spend time with kids and AA sponsor Spiritual Affiliation: I believe in God but do not go to restorationism Probation/Legal trouble/: DUI - 5-8 years ago SOCIAL HISTORY: Alcohol:No use since 04/2021 Marijuana: Last use: 10 years cocaine:v10 years ago Heroin: Denies Meth: Denies LSD/PCP: Denies IV drugs : Denies OTC/Rx drugs: Multivitamin, Vitamin D location: [place], [place] Current home location: [place], [place] Who lives at home: Roommate Di Siblings: Children: Son: 24 years old - Bipolar Daughter: 34 years old - Bipolar Siblings: 2 sisters - healthy Relationships: Single; close with children (2-3 words) Describe childhood: My childhood was pretty lonely, my mom cried a lot; she had her own mental illness (physical/verbal/mental/sexual) Abuse/Trauma: Denies Education: College courses Occupation/Job history: Works FT at [employer]/Interests: [employer], [employer], read Social Activities: Spend time with kids and AA sponsor Spiritual Affiliation: I believe in God but do not go to restorationism Probation/Legal trouble/: DUI - 5-8 years ago SOCIAL HISTORY: Alcohol:No use since 04/2021 Marijuana: Last use: 10 years cocaine:v10 years ago Heroin: Denies Meth: Denies LSD/PCP: Denies IV drugs : Denies OTC/Rx drugs: Multivitamin, Vitamin D location: [place], [place] Current home location: [place], [place] Who lives at home: Roommate Di Siblings: Children: Son: 24 years old - Bipolar Daughter: 34 years old - Bipolar Siblings: 2 sisters - healthy Relationships: Single; close with children (2-3 words) Describe childhood: My childhood was pretty lonely, my mom cried a lot; she had her own mental illness (physical/verbal/mental/sexual) Abuse/Trauma: Denies Education: College courses Occupation/Job history: Works FT at [employer]/Interests: [employer], [employer], read Social Activities: Spend time with kids and AA [employer] Spiritual Affiliation: I believe in God but do not go to restorationism Probation/Legal trouble/: DUI - 5-8 years ago SOCIAL HISTORY: Alcohol:No use since 04/2021 Marijuana: Last use: 10 years cocaine:v10 years ago Heroin: Denies Meth: Denies LSD/PCP: Denies IV drugs : Denies OTC/Rx drugs: Multivitamin, Vitamin D location: [place], [place] Current home location: [place], [place] Who lives at home: Roommate Di Siblings: Children: Son: 24 years old - Bipolar Daughter: 34 years old - Bipolar Siblings: 2 sisters - healthy Relationships: Single; close with children (2-3 words) Describe childhood: My childhood was pretty lonely, my mom cried a lot; she had her own mental illness (physical/verbal/mental/sexual) Abuse/Trauma: Denies Education: College courses Occupation/Job history: Works FT at [employer]/Interests: [employer], garden, read Social Activities: Spend time with kids and AA sponsor Spiritual Affiliation: I believe in God but do not go to restorationism Probation/Legal trouble/: DUI - 5-8 years ago SOCIAL HISTORY: Alcohol:No use since 04/2021 Marijuana: Last use: 10 years cocaine:v10 years ago Heroin: Denies Meth: Denies LSD/PCP: Denies IV drugs : Denies OTC/Rx drugs: Multivitamin, Vitamin D location: [place], [place] Current home location: [place], [place] Who lives at home: Roommate Di Siblings: Children: Son: 24 years old - Bipolar Daughter: 34 years old - Bipolar Siblings: 2 sisters - healthy Relationships: Single; close with children (2-3 words) Describe childhood: My childhood was pretty lonely, my mom cried a lot; she had her own mental illness (physical/verbal/mental/sexual) Abuse/Trauma: Denies Education: College courses Occupation/Job history: Works FT at [employer]/Interests: [employer], [employer], read Social Activities: Spend time with kids and AA [employer] Spiritual Affiliation: I believe in God but do not go to restorationism Probation/Legal trouble/: DUI - 5-8 years ago SOCIAL HISTORY: Alcohol:No use since 04/2021 Marijuana: Last use: 10 years cocaine:v10 years ago Heroin: Denies Meth: Denies LSD/PCP: Denies IV drugs : Denies OTC/Rx drugs: Multivitamin, Vitamin D location: [place], [place] Current home location: [place], [place] Who lives at home: Roommate Di Siblings: Children: Son: 24 years old - Bipolar Daughter: 34 years old - Bipolar Siblings: 2 sisters - healthy Relationships: Single; close with children (2-3 words) Describe childhood: My childhood was pretty lonely, my mom cried a lot; she had her own mental illness (physical/verbal/mental/sexual) Abuse/Trauma: Denies Education: College courses Occupation/Job history: Works FT at [employer]/Interests: [employer], [employer], read Social Activities: Spend time with kids and AA sponsor Spiritual Affiliation: I believe in God but do not go to restorationism Probation/Legal trouble/: DUI - 5-8 years ago SOCIAL HISTORY: Alcohol:No use since 04/2021 Marijuana: Last use: 10 years cocaine:v10 years ago Heroin: Denies Meth: Denies LSD/PCP: Denies IV drugs : Denies OTC/Rx drugs: Multivitamin, Vitamin D location: [place], [place] Current home location: [place], [place] Who lives at home: Roommate Di Siblings: Children: Son: 24 years old - Bipolar Daughter: 34 years old - Bipolar Siblings: 2 sisters - healthy Relationships: Single; close with children (2-3 words) Describe childhood: My childhood was pretty lonely, my mom cried a lot; she had her own mental illness (physical/verbal/mental/sexual) Abuse/Trauma: Denies Education: College courses Occupation/Job history: Works FT at [employer]/Interests: [employer] Social Activities: Spend time with kids and AA [employer] Spiritual Affiliation: I believe in God but do not go to restorationism Probation/Legal trouble/: DUI - 5-8 years ago SOCIAL HISTORY: Alcohol:No use since 04/2021 Marijuana: Last use: 10 years cocaine:v10 years ago Heroin: Denies Meth: Denies LSD/PCP: Denies IV drugs : Denies OTC/Rx drugs: Multivitamin, Vitamin D location: [place] Current home location: [place], [place] Who lives at home: Roommate Di Siblings: Children: Son: 24 years old - Bipolar Daughter: 34 years old - Bipolar Siblings: 2 sisters - healthy Relationships: Single; close with children (2-3 words) Describe childhood: My childhood was pretty lonely, my mom cried a lot; she had her own mental illness (physical/verbal/mental/sexual) Abuse/Trauma: Denies Education: College courses Occupation/Job history: Works FT at [employer]/Interests: [employer], [employer], read Social Activities: Spend time with kids and AA sponsor Spiritual Affiliation: I believe in God but do not go to restorationism Probation/Legal trouble/: DUI - 5-8 years ago SOCIAL HISTORY: Alcohol:No use since 04/2021 Marijuana: Last use: 10 years cocaine:v10 years ago Heroin: Denies Meth: Denies LSD/PCP: Denies IV drugs : Denies OTC/Rx drugs: Multivitamin, Vitamin D location: [place] Current home location: [place], [place] Who lives at home: Roommate Di Siblings: Children: Son: 24 years old - Bipolar Daughter: 34 years old - Bipolar Siblings: 2 sisters - healthy Relationships: Single; close with children (2-3 words) Describe childhood: My childhood was pretty lonely, my mom cried a lot; she had her own mental illness (physical/verbal/mental/sexual) Abuse/Trauma: Denies Education: College courses Occupation/Job history: Works FT at [employer]/Interests: [employer], read Social Activities: Spend time with kids and AA sponsor Spiritual Affiliation: I believe in God but do not go to restorationism Probation/Legal trouble/: DUI - 5-8 years ago SOCIAL HISTORY: Alcohol:No use since 04/2021 Marijuana: Last use: 10 years cocaine:v10 years ago Heroin: Denies Meth: Denies LSD/PCP: Denies IV drugs : Denies OTC/Rx drugs: Multivitamin, Vitamin D location: [place], [place] Current home location: [place], [place] Who lives at home: Roommate Di Siblings: Children: Son: 24 years old - Bipolar Daughter: 34 years old - Bipolar Siblings: 2 sisters - healthy Relationships: Single; close with children (2-3 words) Describe childhood: My childhood was pretty lonely, my mom cried a lot; she had her own mental illness (physical/verbal/mental/sexual) Abuse/Trauma: Denies Education: College courses Occupation/Job history: Works FT at [employer]/Interests: [employer], read Social Activities: Spend time with kids and AA sponsor Spiritual Affiliation: I believe in God but do not go to restorationism Probation/Legal trouble/: DUI - 5-8 years ago SOCIAL HISTORY: Alcohol:No use since 04/2021 Marijuana: Last use: 10 years cocaine:v10 years ago Heroin: Denies Meth: Denies LSD/PCP: Denies IV drugs : Denies OTC/Rx drugs: Multivitamin, Vitamin D location: [place], [place] Current home location: [place], [place] Who lives at home: Roommate Di Siblings: Children: Son: 24 years old - Bipolar Daughter: 34 years old - Bipolar Siblings: 2 sisters - healthy Relationships: Single; close with children (2-3 words) Describe childhood: My childhood was pretty lonely, my mom cried a lot; she had her own mental illness (physical/verbal/mental/sexual) Abuse/Trauma: Denies Education: College courses Occupation/Job history: Works FT at [employer] Hobbies/Interests: Make Book[employer], garden, read Social Activities: Spend time with kids and AA sponsor Spiritual Affiliation: I believe in God but do not go to restorationism Probation/Legal trouble/: DUI - 5-8 years ago Problems Problem Type SNOMED Code ICD Code Onset Dates Problem Status W/U Status Risk Notes Problem Sleep disorder (04128060) Sleep disorder (G47.9) Active confirmed Problem 28356832 Bipolar 2 disorder (F31.81) Active confirmed Problem 639601240 Mild episode of recurrent major depressive disorder (F33.0) Active confirmed Problem Drug monitoring done (508536159) Therapeutic drug monitoring (Z51.81) Active confirmed Encounters Encounter Location Date Provider Diagnosis [address] [place] [address] 07/27/2023 Mary Missy Mild episode of recurrent major depressive disorder F33.0 ; Bipolar 2 disorder F31.81 and Sleep disorder G47.[address] [place] [address] 08/29/2023 Mary Missy Bipolar 2 disorder F31.81 ; Sleep disorder G47.9 and Mild episode of recurrent major depressive disorder F33.[address] [place] [address] 11/09/2023 Mary Missy Bipolar 2 disorder F31.81 ; Sleep disorder G47.9 and Mild episode of recurrent major depressive disorder F33.[address] [address] 01/02/2024 Baylee Kylah Bipolar 2 disorder F31.81 ; Sleep disorder G47.9 and Mild episode of recurrent major depressive disorder F33.0 [facility] [address] [place] [address] 02/19/2024 Baylee Kylah Bipolar 2 disorder F31.81 ; Sleep disorder G47.9 and Mild episode of recurrent major depressive disorder F33.0 [facility] [address] [place] [address] 04/09/2024 Baylee Kylah Bipolar 2 disorder F31.81 ; Sleep disorder G47.9 and Mild episode of recurrent major depressive disorder F33.0 [facility] [address] [address] 05/14/2024 Baylee Kylah Sleep disorder G47.9 ; Bipolar 2 disorder F31.81 and Mild episode of recurrent major depressive disorder F33.[address] [address] 08/03/2023 Mary Louis [address] [address] 08/14/2023 Mary Louis Mild episode of recurrent major depressive disorder F33.0 [facility] [address] [address] 02/01/2024 Orquidea Bloom Bipolar 2 disorder F31.81 ; Sleep disorder G47.9 and Mild episode of recurrent major depressive disorder F33.[address] [place] [address] 02/02/2024 Baylee Kylah [facility] [address] [place] [address] 03/15/2024 Orquidea Bloom Sleep disorder G47.9 [facility] [address] [address] 06/13/2024 Baylee Kylah Mild episode of recurrent major depressive disorder F33.[address] [place] [address] 07/01/2024 Baylee Kylah [address] [place] [address] 07/11/2024 Baylee Kylah Assessments Encounter Date Diagnosis (ICD Code) Assessment Notes Treatment Notes Treatment Clinical Notes Section Notes 07/27/2023 Mild episode of recurrent major depressive disorder (ICD-10 - F33.0) Pt denies SI/Hi at this time.Pt rpeorts that she is taking Duloxetine 30mg in Am and 20mg in PM at this time. Encouraged pt to continue to see therapist. Pt denies SI/Hi at this time. Pt was not able to tolerate 30mg BID due to doug symptoms. 08/14/2023 Mild episode of recurrent major depressive disorder (ICD-10 - F33.0) 08/29/2023 Bipolar 2 disorder (ICD-10 - F31.81) Pt reports that her moods are under control at this time and she is tolerating meds well. Pt denies SI/HI at this time.. Pt denies side effects to meds. Pt is not needing refills at this time. 11/09/2023 Bipolar 2 disorder (ICD-10 - F31.81) Pt reports that her moods are under control at this time, and she is tolerating meds well. Pt denies SI/HI at this time.. Pt denies side effects to meds. Pt reports that she had recent labs completed per PCP and agrees to obtain a copy of results 01/02/2024 Bipolar 2 disorder (ICD-10 - F31.81) 02/01/2024 Bipolar 2 disorder (ICD-10 - F31.81) 02/19/2024 Bipolar 2 disorder (ICD-10 - F31.81) Continue Lamotrigine as prescribed. Reviewed purpose (mood stability, reduce depression, and help with irritability), benefits, and risks - including sedation, nausea, rash - benign or serious. A serious rash could cause shedding of all skin and even become fatal. Stop taking medication immediately if a rash occurs and seek emergency care. Notify our office as well. If you ever miss 4 or more consecutive days of taking this medication, please let the office know. The prescriber may need to restart this medication at 25 mg daily and titrate up as tolerated. Call for problems with medication, side effects or need for dosage change. Continue Quetiapine. Take as prescribed. Reviewed purpose (mood stability), benefits, and risks - low blood pressure, metabolic syndrome with high cholesterol or high blood sugars, change in cardiac conduction, nausea, vomiting, temporary or permanent movement disorders, and akathisia. Explained that no medication can be guaranteed to be 100% safe for baby or mother. Call for problems with medication, side effects or need for dosage change. 03/15/2024 Sleep disorder (ICD-10 - G47.9) 04/09/2024 Sleep disorder (ICD-10 - G47.9) 04/09/2024 Bipolar 2 disorder (ICD-10 - F31.81) 05/14/2024 Sleep disorder (ICD-10 - G47.9) 06/13/2024 Mild episode of recurrent major depressive disorder (ICD-10 - F33.0) 02/19/2024 Sleep disorder (ICD-10 - G47.9) 05/14/2024 Bipolar 2 disorder (ICD-10 - F31.81) 04/09/2024 Mild episode of recurrent major depressive disorder (ICD-10 - F33.0) 01/02/2024 Sleep disorder (ICD-10 - G47.9) 02/01/2024 Sleep disorder (ICD-10 - G47.9) 07/27/2023 Bipolar 2 disorder (ICD-10 - F31.81) Pt reports that she is having episodes of decrease motivation, increased depression and irritability every few weeks. Pt was not able to tolerate increasing Duloxetine due to doug type symptoms. Spoke with Dr Lopez and pt agrees to keep mood chart/diary at this time; will consider adding [place] 300mg daily in the future if needed. Pt denies SI/HI at this time. 11/09/2023 Sleep disorder (ICD-10 - G47.9) ilpmp reviewed. Pt reports that she is sleeping well at this time and soemtimes she is not needing the full 3mg at night. 08/29/2023 Sleep disorder (ICD-10 - G47.9) ilpmp reviewed. Pt reports that she is not needing refills at this time. Pt reports that she is sleeping well at this time. 07/27/2023 Sleep disorder (ICD-10 - G47.9) ilpmp reviewed. Pt reports that she is not needing refills at this time. 08/29/2023 Mild episode of recurrent major depressive disorder (ICD-10 - F33.0) Pt denies SI/Hi at this time.Pt rpeorts that she is taking Duloxetine 30mg in Am and 20mg in PM at this time. Encouraged pt to continue to see therapist. Pt denies SI/Hi at this time. Pt was not able to tolerate 30mg BID due to doug symptoms. PHQ-9 score is 0 today; was 12 at last visit. 11/09/2023 Mild episode of recurrent major depressive disorder (ICD-10 - F33.0) Pt denies SI/Hi at this time.Pt rpeorts that she is taking Duloxetine 30mg in Am and 20mg in PM at this time. Encouraged pt to continue to see therapist. Pt denies SI/Hi at this time. Pt was not able to tolerate 30mg BID due to doug symptoms. PHQ-9 score is 0 today; was 0 at last visit. 01/02/2024 Mild episode of recurrent major depressive disorder (ICD-10 - F33.0) 02/19/2024 Mild episode of recurrent major depressive disorder (ICD-10 - F33.0) Continue Duloxetine. reviewed side effects which may include increased risk of suicide, anxiety, sleep disturbance, nausea, dry mouth, increased bruising, sexual dysfunction, doug, wt gain, and serotonin syndrome. Need to notify provider if planning or experiencing . Call for problems with medication, side effects or need for dosage change. 02/01/2024 Mild episode of recurrent major depressive disorder (ICD-10 - F33.0) 05/14/2024 Mild episode of recurrent major depressive disorder (ICD-10 - F33.0) 07/27/2023 Other Discussed treat ment planDiscussed sleep hygiene and caffeine intakeReturn to clinic 2-4 weeksObtain lab work at next visit Encouraged counselingDiscussed treatment plan; patient is agreeable and accepting of treatment plan. Patient denies further questions or concerns at this time. The Patient/Guardian asked appropriate questions, appeared to understand the answers, and decided to accept the treatment and continue being followed.The Patient/Guardian is aware of the need to contact the office or return for an earlier appointment if any problems or concerns arise. May also contact the 24-hour crisis hotline ([facility]), refer to the closest emergency room or call 911 if new symptoms arise of existing symptoms worsen; the Patient/Guardian is aware that this would apply to symptoms such as: suicidal ideation, homicidal ideation, high risk behaviors, manic symptoms, psychotic symptoms, physical symptoms, or any other symptoms that may be dangerous to self or others. 08/29/2023 Other Discussed treat ment planDiscussed sleep hygiene and caffeine intakeReturn to clinic 8 weeksObtain lab work at next visit Encouraged counselingDiscussed treatment plan; patient is agreeable and accepting of treatment plan. Patient denies further questions or concerns at this time. The Patient/Guardian asked appropriate questions, appeared to understand the answers, and decided to accept the treatment and continue being followed.The Patient/Guardian is aware of the need to contact the office or return for an earlier appointment if any problems or concerns arise. May also contact the 24-hour crisis hotline ([facility]), refer to the closest emergency room or call 911 if new symptoms arise of existing symptoms worsen; the Patient/Guardian is aware that this would apply to symptoms such as: suicidal ideation, homicidal ideation, high risk behaviors, manic symptoms, psychotic symptoms, physical symptoms, or any other symptoms that may be dangerous to self or others. 11/09/2023 Other Discussed treatment planDiscussed sleep hygiene and caffeine intakeReturn to clinic 8 weeksObtain lab work at next visit Encouraged counselingDiscussed treatment plan; patient is agreeable and accepting of treatment plan. Patient denies further questions or concerns at this time. The Patient/Guardian asked appropriate questions, appeared to understand the answers, and decided to accept the treatment and continue being followed.The Patient/Guardian is aware of the need to contact the office or return for an earlier appointment if any problems or concerns arise. May also contact the 24-hour crisis hotline ([facility]), refer to the closest emergency room or call 911 if new symptoms arise of existing symptoms worsen; the Patient/Guardian is aware that this would apply to symptoms such as: suicidal ideation, homicidal ideation, high risk behaviors, manic symptoms, psychotic symptoms, physical symptoms, or any other symptoms that may be dangerous to self or others. Patient made aware that this provider will be leaving [facility] as of 11/15/2023 and he will be transitioned to a new provider for his next appointment. 01/02/2024 Other May self-administer medications or be administered own oral medications per [facility] protocols. Provided informed consent with understanding of side effects, adverse effects, risks and benefits as well as alternative treatments as previously discussed and with the above recommended medications & other aspects of the treatment program. Agrees to return sooner if symptoms worsen or suicidal or homicidal ideations occur. Plan: -Patient endorses feeling stable and denies needing medication refills at this time -Continue Lamotrigine 100 mg BID -Continue Eszopiclone 3 mg at bedtime -Continue Quetiapine Fumarate 400 mg at bedtime -Continue Duloxetine HCl 30 mg in AM, 20 mg in PM (50 mg TDD) -Follow up: 3 months [] Hard Rx handed to patient [] Rx phoned into pharmacy [] Rx faxed/e-prescribed into pharmacy [x] PDMP Reviewed [] [facility] Reviewed Encouraged by Baylee Montero [facility]- to: [x] consider utilizing therapist/counselor/so cial worker/psychologist, referral given [] continue with therapist/counselor/so cial worker/psychologist Psychoeducation: -Treatment options discussed in detail with patient/guardian verbalizing understanding of treatment rationales. -Side effects and benefits of all medications prescribed discussed at length between psychiatric prescribing provider and patient/guardian along with the risks associated of [id number]-rrpv interactions, including but not limited to prescription medications, OTC medications, vitamins, minerals and herbal supplements. -Patient/Guardian and provider dialogue showcased verbalized understanding from patient on rationales of medication risk vs benefits. -Information with neurobiology of presenting neurotransmitter disorder, mood stability, sleep hygiene and 7-8 hours of uninterrupted sleep per night with wakeful and refreshed awakening and day long alertness discussed. -Reduction of stress and anxiety to aid in focus and concentration discussed, again, with patient/guardian physically nodding, voicing understanding, and engaged in treatment plan with Baylee Montero [facility]. -Perceiving complete understanding of rationale by patient/guardian and willingness to adhere to formulated plan of care by prescriber with patient/guardian buy-in, willingness to participate actively in plan of care and willing to take charge of own care. -Although geared for female patients, all patients/guardians are informed by prescribing provider of risks of medications that could potentially be taken by female/women within their mentasta of influence and that women who use medicine during have a higher chance of having a baby with defects. -Patient/Guardian denies being and/or knowing of women who are at present and denies wanting to become in the foreseeable future, 0-6 months from now. -Patient/Guardian again informed of the risk of pharmaceutical medications consumed during and how there are potential negative effects on the developing fetus. -Patient/Guardian verbalizes understanding of rationale and physically nods head in agreement that if a should occur, to consult with provider, VEGETABLE BUNCHER and/or Nurse Electric Fork Operator to determine if prescribed medications should or should not be continued. -Instructions regarding both the medical/pharmacologica l and non-pharmacologic aspects of the treatments employed were given, and the patient/guardian seemed to understand this. Risks and benefits of treatment, and of non-treatment, were also discussed. The patient/guardian understands the more frequent side effects associated with the medications. -The use of psychotherapy was addressed today and will continue on an as needed basis for the foreseeable future. The choice is, of course, ultimately left to the patient/guardian. -Patient/Guardian was encouraged to make a follow-up appointment for the next visit. -Additional treatment was discussed and has been addressed on an ongoing basis within the context of this patient's illness, resources, progress, and other appropriate factors. Being compliant with a regular exercise routine, consistent medication use, ongoing psychotherapy, eating and sleeping well, as well as the importance of handling stress, was discussed. 02/19/2024 Other May self-administer medications or be administered own oral medications per [facility] protocols. Provided informed consent with understanding of side effects, adverse effects, risks and benefits as well as alternative treatments as previously discussed and with the above recommended medications & other aspects of the treatment program. Agrees to return sooner if symptoms worsen or suicidal or homicidal ideations occur. Unable to complete AIMS due to nature of appt, denies any irregular muscle movements; would benefit from an in person appointment. Plan: -Continue Lamotrigine 100 mg BID -Continue Eszopiclone 3 mg QHS -Continue Quetiapine 400 mg QHS -Continue Duloxetine 30 mg in AM, 20 mg in PM *No refills needed at this time -Follow up: 2 months [] Hard Rx handed to patient [] Rx phoned into pharmacy [] Rx faxed/e-prescribed into pharmacy [x] PDMP Reviewed [] [employer]Sight Reviewed Encouraged by Baylee Montero [facility] to: [x] consider utilizing therapist/counselor/so cial worker/psychologist, referral given [] continue with therapist/counselor/so cial worker/psychologist Psychoeducation: -Treatment options discussed in detail with patient/guardian verbalizing understanding of treatment rationales. -Side effects and benefits of all medications prescribed discussed at length between psychiatric prescribing provider and patient/guardian along with the risks associated of [id number] interactions, including but not limited to prescription medications, OTC medications, vitamins, minerals and herbal supplements. -Patient/Guardian and provider dialogue showcased verbalized understanding from patient on rationales of medication risk vs benefits. -Information with neurobiology of presenting neurotransmitter disorder, mood stability, sleep hygiene and 7-8 hours of uninterrupted sleep per night with wakeful and refreshed awakening and day long alertness discussed. -Reduction of stress and anxiety to aid in focus and concentration discussed, again, with patient/guardian physically nodding, voicing understanding, and engaged in treatment plan with Baylee Montero [facility]. -Perceiving complete understanding of rationale by patient/guardian and willingness to adhere to formulated plan of care by prescriber with patient/guardian buy-in, willingness to participate actively in plan of care and willing to take charge of own care. -Although geared for female patients, all patients/guardians are informed by prescribing provider of risks of medications that could potentially be taken by female/women within their mentasta of influence and that women who use medicine during have a higher chance of having a baby with defects. -Patient/Guardian denies being and/or knowing of women who are at present and denies wanting to become in the foreseeable future, 0-6 months from now. -Patient/Guardian again informed of the risk of pharmaceutical medications consumed during and how there are potential negative effects on the developing fetus. -Patient/Guardian verbalizes understanding of rationale and physically nods head in agreement that if a should occur, to consult with provider, VEGETABLE BUNCHER and/or Nurse Electric Fork Operator to determine if prescribed medications should or should not be continued. -Instructions regarding both the medical/pharmacologica l and non-pharmacologic aspects of the treatments employed were given, and the patient/guardian seemed to understand this. Risks and benefits of treatment, and of non-treatment, were also discussed. The patient/guardian understands the more frequent side effects associated with the medications. -The use of psychotherapy was addressed today and will continue on an as needed basis for the foreseeable future. The choice is, of course, ultimately left to the patient/guardian. -Patient/Guardian was encouraged to make a follow-up appointment for the next visit. -Additional treatment was discussed and has been addressed on an ongoing basis within the context of this patient's illness, resources, progress, and other appropriate factors. Being compliant with a regular exercise routine, consistent medication use, ongoing psychotherapy, eating and sleeping well, as well as the importance of handling stress, was discussed. 04/09/2024 Other May self-administer medications or be administered own oral medications per [facility] protocols. Provided informed consent with understanding of side effects, adverse effects, risks and benefits as well as alternative treatments as previously discussed and with the above recommended medications & other aspects of the treatment program. Agrees to return sooner if symptoms worsen or suicidal or homicidal ideations occur. Unable to complete AIMS due to nature of appt, denies any irregular muscle movements; would benefit from an in person appointment. Plan: -Continue Lamotrigine 100 mg BID -Continue Eszopiclone 3 mg QHS -Continue Quetiapine 400 mg QHS -Decrease Duloxetine to 30 mg once daily *Patient started self-tapering Duloxetine on 03/02/24 by taking 20 mg night dose every other day. -Follow up: 4 weeks [] Hard Rx handed to patient [] Rx phoned into pharmacy [x] Rx faxed/e-prescribed into pharmacy [x] PDMP Reviewed [] [facility]Sight Reviewed Encouraged by Baylee Montero [facility]- to: [x] consider utilizing therapist/counselor/so cial worker/psychologist [] continue with therapist/counselor/so cial worker/psychologist Psychoeducation: -Treatment options discussed in detail with patient/guardian verbalizing understanding of treatment rationales. -Side effects and benefits of all medications prescribed discussed at length between psychiatric prescribing provider and patient/guardian along with the risks associated of nzch-wu-igwn interactions, including but not limited to prescription medications, OTC medications, vitamins, minerals and herbal supplements. -Patient/Guardian and provider dialogue showcased verbalized understanding from patient on rationales of medication risk vs benefits. -Information with neurobiology of presenting neurotransmitter disorder, mood stability, sleep hygiene and 7-8 hours of uninterrupted sleep per night with wakeful and refreshed awakening and day long alertness discussed. -Reduction of stress and anxiety to aid in focus and concentration discussed, again, with patient/guardian physically nodding, voicing understanding, and engaged in treatment plan with Baylee Montero [facility]. -Perceiving complete understanding of rationale by patient/guardian and willingness to adhere to formulated plan of care by prescriber with patient/guardian buy-in, willingness to participate actively in plan of care and willing to take charge of own care. -Although geared for female patients, all patients/guardians are informed by prescribing provider of risks of medications that could potentially be taken by female/women within their mentasta of influence and that women who use medicine during have a higher chance of having a baby with defects. -Patient/Guardian denies being and/or knowing of women who are at present and denies wanting to become in the foreseeable future, 0-6 months from now. -Patient/Guardian again informed of the risk of pharmaceutical medications consumed during and how there are potential negative effects on the developing fetus. -Patient/Guardian verbalizes understanding of rationale and physically nods head in agreement that if a should occur, to consult with provider, VEGETABLE BUNCHER and/or Nurse Electric Fork Operator to determine if prescribed medications should or should not be continued. -Instructions regarding both the medical/pharmacologica l and non-pharmacologic aspects of the treatments employed were given, and the patient/guardian seemed to understand this. Risks and benefits of treatment, and of non-treatment, were also discussed. The patient/guardian understands the more frequent side effects associated with the medications. -The use of psychotherapy was addressed today and will continue on an as needed basis for the foreseeable future. The choice is, of course, ultimately left to the patient/guardian. -Patient/Guardian was encouraged to make a follow-up appointment for the next visit. -Additional treatment was discussed and has been addressed on an ongoing basis within the context of this patient's illness, resources, progress, and other appropriate factors. Being compliant with a regular exercise routine, consistent medication use, ongoing psychotherapy, eating and sleeping well, as well as the importance of handling stress, was discussed. 05/14/2024 Other May self-administer medications or be administered own oral medications per [facility] protocols. Provided informed consent with understanding of side effects, adverse effects, risks and benefits as well as alternative treatments as previously discussed and with the above recommended medications & other aspects of the treatment program. Agrees to return sooner if symptoms worsen or suicidal or homicidal ideations occur. Unable to complete AIMS due to nature of appt, denies any irregular muscle movements; would benefit from an in person appointment. Plan: -Continue Lamotrigine 100 mg BID -Continue Eszopiclone 3 mg QHS -Continue Quetiapine 400 mg QHS -Decrease Duloxetine to 20 mg once daily (patient has that dose at home) -Follow up: 2 months [] Hard Rx handed to patient [] Rx phoned into pharmacy [x] Rx faxed/e-prescribed into pharmacy [x] PDMP Reviewed [] [facility] Reviewed Encouraged by Baylee SAUCEDOP-BC to: [] consider utilizing therapist/counselor/so cial worker/psychologist, referral given [x] continue with therapist/counselor/so cial worker/psychologist Psychoeducation: -Treatment options discussed in detail with patient/guardian verbalizing understanding of treatment rationales. -Side effects and benefits of all medications prescribed discussed at length between psychiatric prescribing provider and patient/guardian along with the risks associated of [id number] interactions, including but not limited to prescription medications, OTC medications, vitamins, minerals and herbal supplements. -Patient/Guardian and provider dialogue showcased verbalized understanding from patient on rationales of medication risk vs benefits. -Information with neurobiology of presenting neurotransmitter disorder, mood stability, sleep hygiene and 7-8 hours of uninterrupted sleep per night with wakeful and refreshed awakening and day long alertness discussed. -Reduction of stress and anxiety to aid in focus and concentration discussed, again, with patient/guardian physically nodding, voicing understanding, and engaged in treatment plan with Baylee SAUCEDOP-BC. -Perceiving complete understanding of rationale by patient/guardian and willingness to adhere to formulated plan of care by prescriber with patient/guardian buy-in, willingness to participate actively in plan of care and willing to take charge of own care. -Although geared for female patients, all patients/guardians are informed by prescribing provider of risks of medications that could potentially be taken by female/women within their mentasta of influence and that women who use medicine during have a higher chance of having a baby with defects. -Patient/Guardian denies being and/or knowing of women who are at present and denies wanting to become in the foreseeable future, 0-6 months from now. -Patient/Guardian again informed of the risk of pharmaceutical medications consumed during and how there are potential negative effects on the developing fetus. -Patient/Guardian verbalizes understanding of rationale and physically nods head in agreement that if a should occur, to consult with provider, VEGETABLE BUNCHER and/or Nurse Electric Fork Operator to determine if prescribed medications should or should not be continued. -Instructions regarding both the medical/pharmacologica l and non-pharmacologic aspects of the treatments employed were given, and the patient/guardian seemed to understand this. Risks and benefits of treatment, and of non-treatment, were also discussed. The patient/guardian understands the more frequent side effects associated with the medications. -The use of psychotherapy was addressed today and will continue on an as needed basis for the foreseeable future. The choice is, of course, ultimately left to the patient/guardian. -Patient/Guardian was encouraged to make a follow-up appointment for the next visit. -Additional treatment was discussed and has been addressed on an ongoing basis within the context of this patient's illness, resources, progress, and other appropriate factors. Being compliant with a regular exercise routine, consistent medication use, ongoing psychotherapy, eating and sleeping well, as well as the importance of handling stress, was discussed. Plan Of Treatment Future Test Test Name Order Date 12 Panel Urine Drug Screen 08/24/2022 Insurance Providers Payer Name Payer Address Payer Phone Subscriber Number Group Number Insured Name Patient Relationship to Insured Coverage Start Date Coverage End Date [employer] [address] [place] [address] [id number] Mona Dukes Self - patient is the insured 4 [employer] [address] [place] [address] [id number] [id number] Mona Dukes Self - patient is the insured 1 3 [employer]health [address] [place] [address] [id number] Mona Dukes Self - patient is the insured 2 3 Medical (General) History Medical History History ICD Code pre-diabetes Seasonal Allergies Surgical History Surgery Date(Month/Year) 1987 umbilical hernia repair 12/2021 Hospitalization History Reason Date(Month/Year) drug induced psychosis 2009
--- OUTSIDE RECORDS SUMMARY | 2024-07-16 05:35 | XMS_ITS | Patient Health Record ---
Author Organization 1 OF [facility] Address [address] [facility] [address] [place] [address] Care Team Providers Care Technician Automated Equipment Name Role Phone Arina Presley Primary Care Provider Tereza Ramirez Unavailable [phone] Allergies Allergen (clinical drug ingredient) Drug/Non Drug Allergy documented on EMR Reaction Allergy Type Onset Date Status minocycline Minocycline Unknown Drug Allergy Act rere Reason For Referral No Information Medications Medication SIG (Take, Route, Frequency, Duration) Notes Start Date End Date Status Multivitamin Active CeleXA Active Calcium Active B12 Active Jardiance Active Magnesium Active Trulicity Active metFORMIN HCl Active SEROquel Active Gabapentin Active LaMICtal Active Problems Problem Type SNOMED Code ICD Code Onset Dates Problem Status W/U Status Risk Notes Problem [id number] Type 2 diabetes mellitus with other diabetic neurological complication (E11.49) Active confirmed Plan Of Treatment No Information Insurance Providers Payer Name Payer Address Payer Phone Subscriber Number Group Number Insured Name Patient Relationship to Insured Coverage Start Date Coverage End Date [facility] [address] [place] [address] [id number] Mona Elias Self - patient is the insured Medical (General) History Medical History History ICD Code Arthritis depression Diabetes hernia hypertension Neuropathy of Feet
--- OUTSIDE RECORDS SUMMARY | 2024-07-16 05:35 | XMS_ITS | Encounter Summary ---
Author Organization 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 Gender Identity Not on file Sexual Orientation Not on file documented as of this encounter Plan of Treatment Not on file documented as of this encounter Procedures Procedure Name Priority Date/Time Associated Diagnosis Comments SCAN - LABS 10/20/2022 documented in this encounter Results * SCAN - LABS (10/20/2022) us Provider Scanning Final Result documented in this encounter Visit Diagnoses Not on filedocumented in this encounter Care Teams Engineering Manager Relationship Specialty Start Date End Date Arina Presley PA [address] [place] [id number] PCP - General Physician Admissions Manager Rn 12/15/21 Prieto Mcclain, [address] [place] [id number] Consulting Physician Gastroenterology 12/26/22 documented as of this encounter
--- OUTSIDE RECORDS SUMMARY | 2024-07-16 05:36 | XMS_ITS | Encounter Summary ---
Author Organization [facility] Address [address] [place] [address] Phone Care Team Providers Care Certified Wellness Program Manager Name Role Phone Arina Presley Primary Care Provider [phone] Prieto Mcclain DO Unavailable [phone] Encounter Details Date Type Department Care Team (Late st Contact Info) Description 10/13/2022 Orders Only [facility] Scanning, Provider Social History Tobacco Use Types Packs/Day Years Used Date Smoking Tobacco: Never Assessed Comments Unknown Sex and Gender Information Value Date Recorded Sex Assigned at Not on file 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 Gender Identity Not on file Sexual Orientation Not on file documented as of this encounter Plan of Treatment Not on file documented as of this encounter Procedures Procedure Name Priority Date/Time Associated Diagnosis Comments SCAN - RADIOLOGY/IMAGING 10/13/2022 documented in this encounter Results * SCAN - RADIOLOGY/IMAGING (10/13/2022) Anatomical Region Laterality Modality Other us Provider Scanning Edited Result - Final documented in this encounter Visit Diagnoses Not on filedocumented in this encounter Care Teams Certified Wellness Program Manager Relationship Specialty Start Date End Date Arina Presley PA [address] [place] [phone] PCP - General Physician Cow Puncher 12/15/21 Prieto Mcclain, [address] [place] [address] [phone] Consulting Physician Gastroenterology 12/26/22 documented as of this encounter
--- OUTSIDE RECORDS SUMMARY | 2024-07-16 05:36 | XMS_ITS ---
Author Organization [address] [facility] Address [address] [place] [address] Care Team Providers Care Revenue Cycle Consultant Name Role Phone Arina Presley Primary Care Provider Tereza Ramirez Unavailable [phone] Jona Garcia Unavailable [phone] REASON FOR VISIT referral Attempt # 3 [id number] Encounters Encounter Location Date Provider Diagnosis [facility] OF [facility] [address] [place] [address] 04/04/2023 Jona Garcia Plan Of Treatment No Information Progress Notes * Mona HEMPHILLDOB:1970 (52 yo F)Acc No.[id number]:04/04/2023 Patient: Peyton Mona MEZA :1970 A ge:52 Y S ex:Female Address:[address], [place], [address] * true * Date: Generated for Cherryi zuly/Malenag/eTransmitting on: 0 07/16/2024 05:35 AM CDT
--- OUTSIDE RECORDS SUMMARY | 2024-07-16 05:36 | XMS_ITS | CONTINUITY OF CARE DOCUMENT ---
Author Name anita howard Address Unknown Organization [facility] Address [address] [place] [address] Phone [phone] Care Team Providers Care Street Sprinkler Name Role Phone Taurus MICHAELS, Anibal Unavailable MARLEN SANTOS PA-C Unavailable MARLEN SANTOS PA-C Unavailable PROBLEMS Condition Status Date Provider Notes Carotid artery disease;PLAQUING active Dean Harkins MD PVC's active Dean Harkins MD Overweight completed - Anibal Condon MD Tobacco use, quit active Dean Harkins MD Exposure to SARS-associated coronavirus;had vaccine active Dean Harkins MD Diabetes mellitus, type 2 active Filomena Ventimiglia [employer] CONSULTANT neg UACXR and egfr Hyperlipidemia; with high crp and lpa 112 active Dean Harkins MD Vitamin D deficiency active Dean Rodriguez Palpitations completed - Dean Harkins MD Bipolar disorder active Dean Harkins MD Hemiblock, left anterior completed - Anibal Condon MD Chest pain, atypical active Dean Rodriguez Neuropathy active Dean Harkins MD Hypertension active Filomena Ventimiglia [employer]ALES CONSULTANT Screening completed - Anibal Condon MD Pulsatile tinnitus, bilateral completed - Anibal Condon MD New daily persistent headache completed - Anibal Condon MD ENCOUNTERS Date Type Provider Location Encounter Diag nosis 7 - 7 In-person encounter Office Visit Anibal Condon MD [facility] OverweightHemiblock, left anteriorScreeningPulsatile tinnitus, bilateralNew daily persistent headache 6 - 6 In-person encounter Office Visit Dean Harkins MD [facility] Diabetes mellitus, type 2Hypertension 5 - 5 In-person encounter Office Visit Dean Harkins MD [facility] 6 - 6 In-person encounter Office Visit Dean Harkins MD [facility] PalpitationsChest pain, atypical 0 - 0 In-person encounter Office Visit Dean Harkins MD [facility] Tobacco use, quitExposure to SARS-associated coronavirus;had vaccineDiabetes mellitus, type 2Hyperlipidemia; with high crp and lpa 112Vitamin D deficiencyBipolar disorderChest pain, atypicalNeuropathyHypertension VITAL SIGNS Date Observation Value Provider Body Mass Index (Ratio) 26.36 kg/m2 Mariella aranda Puhse blood pressure, cuff size regular Frank et blood pressure, diastolic 78 mm[Hg] Frank et blood pressure, systolic 120 mm[Hg] Sri ret pulse rate 85 /min Keon y oxygen saturation, oximetry 97 % Keon respiratory rate E&M 14 /min Keon weight E&M 189 [lb_av] Keon y height E&M 71 [in_i] [facility] y Body Mass Index (Ratio) 27.47 kg/m2 Lovely Harkins MD blood pressure, diastolic 89 mm[Hg] Li nkLogic blood pressure, systolic 151 mm[Hg] Jaki kLogic blood pressure, cuff size regular Ja rret blood pressure, diastolic 89 mm[Hg] Ja rret blood pressure, systolic 151 mm[Hg] Jar ret pulse rate 72 /min Keon y oxygen saturation, oximetry 99 % Keon respiratory rate E&M 12 /min Keon weight E&M 197 [lb_av] Keon y height E&M 71 [in_i] Keon y Body Mass Index (Ratio) 25.94 kg/m2 Andr kevyn Figueroa blood pressure, cuff size regular Ke rri Gruenenfelder blood pressure, diastolic 70 mm[Hg] Ke rri Gruenenfelder blood pressure, systolic 122 mm[Hg] Ker ri Gruenenfelder oxygen saturation, oximetry 97 % Nicole Grana mnenfelder respiratory rate E&M 12 /min Nicole G codyenejhonyelder pulse rate 82 /min Nicole Gruenenfe lder weight E&M 186 [lb_av] Nicole Gruenenfe er height E&M 71 [in_i] Nicole Gruenenfe lder Body Mass Index (Ratio) 26.78 kg/m2 Lovely Harkins MD blood pressure, diastolic 66 mm[Hg] Ady Harkins MD blood pressure, systolic 130 mm[Hg] Maykel Harkins MD weight E&M 192 [lb_av] Dean Rodriguez weight E&M 198 [lb_av] Niranjan Rogel luke Body Mass Index (Ratio) 27.61 kg/m2 Lovely Harkins MD blood pressure, cuff size large Raza hernandez Slater blood pressure, diastolic 80 mm[Hg] Raza hernandez Slater blood pressure, systolic 140 mm[Hg] [facility] patience Slater oxygen saturation, oximetry 97 % Quinn respiratory rate E&M 16 /min Swetha valverde Quinn pulse rate 89 /min Michelle rodriguez weight E&M 198 [lb_av] Michelle rodriguez height E&M 71 [in_i] Michelle rodriguez ALLERGIES Allergy Name Onset Date Reaction Criticality Status NEXLETOL Low Criticality active MINOCYCLINE High Criticality active RESULTS Date Observation Value Provider Reference Range Interpretation Location 8 microalbumin/cre atinine ratio, urine <8 mg/g creat [facility] 0-29 8 microalbumin, random, urine <3.0 ug/mL [facility] Not Estab. 8 creatinine, random, urine 38.0 mg/dL [facility] Not Estab. 8 c-reactive protein, quantitative, serum 2.92 mg/L [facility] 0.00-3.00 8 B-12, serum 758 pg/mL [facility] 232-1245 8 rapid plasma reagin antibody screen Non Reactive [facility] Non Reactive 8 pro brain natriuretic peptide 76 pg/mL [facility] 0-249 8 lipoprotein, beta, serum, point, quantitative, calculated 106 mg/dL [facility] 0-99 High 8 HDL cholesterol, serum 40 mg/dL [facility] >39 8 triglyceride, serum, random 203 mg/dL [facility] 0-149 High 8 cholesterol, serum 181 mg/dL [facility] 485-449 6346/08/1 8 calcium, serum 10.1 mg/dL [facility] 8.7-10.2 8 carbon dioxide, venous blood 24 mmol/L [facility] 20-29 8 chloride, serum 100 mmol/L [facility] 96-106 8 potassium, serum 4.8 mmol/L [facility] 3.5-5.2 8 sodium, serum 140 mmol/L [facility] 308-319 4264/08/1 8 urea nitrogen/creatin ine ratio, serum 17 [facility] 9-23 8 creatinine, serum 0.86 mg/dL [facility] 0.57-1.00 8 urea nitrogen, blood 15 mg/dL [facility] 6-24 8 blood glucose, random 163 mg/dL [facility] 65-99 High HISTORY OF MEDICATION USE Medication Status Instructions Dates Provider Indications Com ments duloxetine 30 mg capsule,delayed release(DR/EC) active Pavel Rucker ezetimibe 10 mg tablet active Take 1 tablet by mouth once daily Susan Vasquez Nexletol 180 mg tablet active TAKE ONE TABLET BY MOUTH ONCE DAILY Filomena Ventimiglia PRESALES CONSULTANT Jardiance 25 mg tablet active Take 1 tablet by mouth once a day Pavel Rucker losartan 50 mg tablet completed TAKE 1 TABLET BY MOUTH ONCE A DAY - Pavel Rucker metoprolol succinate 25 mg tablet extended release 24 hr active Take 1 tablet by mouth once daily Nicole Rodriguez eszopiclone 2 mg tablet active Filomena Ventimiglia PRESALES CONSULTANT Jardiance 10 mg tablet completed Take 1 tablet by mouth once a day - Filomena Ventimiglia PRESALES CONSULTANT metoprolol succinate 25 mg tablet extended release 24 hr completed Take 1 tablet by mouth once a day - Nicole Rodriguez Nexletol 180 mg tablet completed TAKE 1 TABLET BY MOUTH EVERY DAY - Filomena OSEGUERAP ezetimibe 10 mg tablet completed - Nicole Rodriguez quetiapine 300 mg tablet completed - Dean Harkins MD Trulicity 4.5 mg/0.5 mL pen injector active Inject 0.5 ml subcutaneously once a week Pavel Rucker Diabetes mellitus, type 2 Vascepa 1 gram capsule completed TAKE 2 CAPSULES BY MOUTH TWICE DAILY - Filomena OSEGUERAP Zetia 10 mg tablet completed Take 1 tablet by mouth once a day - Dean Harkins MD Nexletol 180 mg tablet completed TAKE ONE TABLET BY MOUTH ONCE DAILY - Dean Harkins MD Ozempic 0.25 mg or 0.5 mg(2 mg/1.5 mL) pen injector completed Inject 1/4 mg subcutaneously once a week Take 0.25mg once a week x4 weeks then increase to 0.5mg weekly - Yasmine Lou Aspirin Childrens 81 mg tablet,chewable active TAKE 1 TABLET BY MOUTH EVERY DAY Dean Harkins MD losartan 25 mg tablet completed TAKE 1 TABLET BY MOUTH DAILY - Filomena GREGORY Lantus Solostar U-100 Insulin 100 unit/mL (3 mL) insulin pen completed - Filomena GREGORY cholecalciferol (vitamin D3) 1,250 mcg (50,000 unit) capsule completed TAKE 1 CAPSULE BY MOUTH ONCE A WEEK WITH MEALS - Filomena GREGORY glipizide 10 mg tablet completed once a day - Filomena GREGORY cyclobenzaprine 10 mg tablet active once a day Dean Harkins MD lamotrigine 100 mg tablet active twice a day Dean Harkins MD gabapentin 300 mg capsule completed 1 three times a day - Filomena GREGORY metformin 1,000 mg tablet active twice a day Pavel Rucker citalopram 20 mg tablet active once a day Pavel Rucker quetiapine 300 mg tablet active every evening Dean Harkins MD cetirizine 10 mg tablet completed once a day - [facility] atorvastatin 40 mg tablet active once a day Dean Harkins MD SOCIAL HISTORY Date Observation Value Provider drug use no Pavel Kingzajason alcohol use no Pavel Bealjason smoking status Current every day smoker R linda Bealjason drug use no Filomena Ventimig monica [facility] alcohol use no Filomena Ventimig monica [facility] smoking status Current every day smoker A pramod Byronmiglia [facility] drug use no Filomena Ventimig monica [facility] alcohol use no Filomena Ventimig monica [facility] smoking status Current every day smoker A pramod Byronmijose alberto [facility] quit smoking, stage quit Dean clemente MD social history E&M S moking History: P fahad has never smoked. Dean Harkins MD social history reviewed E&M revi ewed - no changes required Dean Harkins MD smoking status Never smoker Michelle Kong and INSURANCE PROVIDERS Payer name Policy type / Coverage type [facility] Medicaid 9 [id number] ADVANCE DIRECTIVES Name Date DISCUSSED - NO DECISION MADE TREATMENT PLAN Date Name Performer [id number],C,P fahad is having new daily headaches associated with tinnuitis and visual changes n o acute neuro deficit on exam b ut will plan CT eval as noted above. W ill return post testing or sooner if needed. Filomenamarta Matthewsmiglia [facility] [id number],C, T he following medications were removed from the medication list: Jardiance 10 Mg Tablet (Empagliflozin) ..... Take 1 tablet by mouth once a day Her updated medication list for this problem includes: Metformin 500 Mg Tablet (Metformin) ..... Twice a day Trulicity 0.75 Mg/0.5 Ml Pen Injector (Dulaglutide) ..... Inject 0.5 ml subcutaneously once a week Aspirin Childrens 81 Mg Tablet,chewable (Aspirin) ..... Take 1 tablet by mouth [facility] [id number],C,s he remains on BB E KG today NSR no PVCs Her updated medication list for this problem includes: Metoprolol Succinate 25 Mg Tablet Extended Release 24 Hr (Metoprolol succinate) ..... Take 1 tablet by mouth once daily Aspirin Childrens 81 Mg Tablet,chewable (Aspirin) ..... Take 1 tablet by mouth every day [facility] [id number],C,S he has LDL of 106 on last labs S he has elevated lp(a) w ill update lipids H er updated medication list for this problem includes: Nexletol 180 Mg Tablet (Bempedoic acid) ..... Take one tablet by mouth once daily Atorvastatin 40 Mg Tablet (Atorvastatin) ..... Once a day Ezetimibe 10 Mg Tablet (Ezetimibe) [facility] [id number],C,c ontinues to have pounding and pressure in the ears c arotid shows less than 50% stenosis bilaterally m ay be related to elevated BP W ill however order CT head and neck with and without as recommended by Dr. Harkins to r/o any acute infarct, bleed, mass, or aneurysm. [facility] [id number],C,remains on re placement therapy [facility] [id number],C,cessation enc ourged. Now vaping [facility] [id number],C,L ast Hgb A1C was 5.8%. Contnue present medication therapy T he following medications were removed from the medication list: Losartan 25 Mg Tablet (Losartan) ..... Take 1 tablet by mouth daily Lantus Solostar U-100 Insulin 100 Unit/ml (3 Ml) Insulin Pen (Insulin glargine) Glipizide 10 Mg Tablet (Glipizide) ..... Once a day Her updated medication list for this problem includes: Trulicity 0.75 Mg/0.5 Ml Pen Injector (Dulaglutide) ..... Inject 0.5 ml subcutaneously once a week Jardiance 10 Mg Tablet (Empagliflozin) ..... Take 1 tablet by mouth once a day Metformin 1,000 Mg Tablet (Metformin) ..... Twice a day Aspirin Childrens 81 Mg Tablet,chewable (Aspirin) ..... Take 1 tablet by mouth every day [facility] [id number],C,B P well controlled. Unable to tolerate losartan as caused dizziness and near syncope. Will remain on BB alone T he following medications were removed from the medication list: Losartan 25 Mg Tablet (Losartan) ..... Take 1 tablet by mouth daily Her updated medication list for this problem includes: Metoprolol Succinate 25 Mg Tablet Extended Release 24 Hr (Metoprolol succinate) ..... Take 1 tablet by mouth once a day Aspirin Childrens 81 Mg Tablet,chewable (Aspirin) ..... Take 1 tablet by mouth every day [facility] [id number],C,L DL 106 on last check. Will update lipids. continue present medication therapy T he following medications were removed from the medication list: Nexletol 180 Mg Tablet (Bempedoic acid) ..... Take 1 tablet by mouth every day Vascepa 1 Gram Capsule (Icosapent ethyl) ..... Take 2 capsules by mouth twice daily Her updated medication list for this problem includes: Atorvastatin 40 Mg Tablet (Atorvastatin) ..... Once a day Ezetimibe 10 Mg Tablet (Ezetimibe) [facility] [id number],C,C ontinues to have atypical chest pain that comes and goes. Pain is associated with pounding and tingling in the chest. She had routine stress test that was negative for ischemia and echo last year that was normal. Given persistent symptoms and risk factors, DM, HlD, tobacco abuse will plan nuclear stress test. Will do lexiscan as HR at only 70% on previous testing. Will f/u post testing or sooner if needed. O rders: L ipoprotein (a) ([id number]) Filomena Tang PRESALES CONSULTANT [id number],S, 4 % Dean Serotcece MICHAELS [id number],S, n eg rpr and b12 Dean Serotcece MICHAELS [id number],B, H er updated medication list for this problem includes: Vascepa 1 Gram Capsule (Icosapent ethyl) ..... Take 2 capsules by mouth twice daily Zetia 10 Mg Tablet (Ezetimibe) ..... Take 1 tablet by mouth once a day Nexletol 180 Mg Tablet (Bempedoic acid) ..... Take one tablet by mouth once daily Atorvastatin 40 Mg Tablet (Atorvastatin) C HOL: 181 (10/07/2021) HDL: 40 (10/07/2021) Dean Serotcece MICHAELS [id number],S,neg treadmisl Dean Serotcece MICHAELS [id number],S, n eg uacr,pro 75 e ng ehco Dean Serotcece MICHAELS [id number],C,neg rprp and b12w Dean Serotcece MICHAELS [id number],C,neg uacr,pro 75 Dean Serotcece MICHAELS [id number],C,4% Dean Ser abe [id number],S, Dean Serot a [id number],S, Dean Serot a [id number],S, Dean Serot a [id number],S, Dean Serot a [id number],S, Dean Serot a [id number],S, Dean Serot a [id number],S, Dean Serot a [id number],S,7 Dean gomez MD [id number],S, Dean Serot a [id number],B, Dean Serot a [id number],S, Dean Serot a [id number],S, Dean Serot a [id number],S, Dean Serot a [id number],S,7 Dean gomez MD Cardiology Pavel Rucker Cardiology: B P today: 120/78 P rior BP: 151/89 (12/05/2022) Labs Reviewed: C reat: 0.86 (10/07/2021) C hol: 181 (10/07/2021) HDL: 40 (10/07/2021) LDL: 106 (10/07/2021) T (10/07/2021) Pavel Rucker Cardiology: H er updated medication list for this problem includes: Ezetimibe 10 Mg Tablet (Ezetimibe) ..... Take 1 tablet by mouth once daily Nexletol 180 Mg Tablet (Bempedoic acid) ..... Take one tablet by mouth once daily Atorvastatin 40 Mg Tablet (Atorvastatin) ..... Once a day Pavel Rucker Cardiology: H er updated medication list for this problem includes: Metformin 1,000 Mg Tablet (Metformin) ..... Twice a day Trulicity 4.5 Mg/0.5 Ml Pen Injector (Dulaglutide) ..... Inject 0.5 ml subcutaneously once a week Jardiance 25 Mg Tablet (Empagliflozin) ..... Take 1 tablet by mouth once a day Aspirin Childrens 81 Mg Tablet,chewable (Aspirin) ..... Take 1 tablet by mouth every day Pavel Rucker Cardiology Pavel Rucker :neg brain ct Dean Harkins MD :neg cta Dean Harkins MD Cardiology:Patient i s having new daily headaches associated with tinnuitis and visual changes n o acute neuro deficit on exam b pr will plan CT eval as noted above. W ill return post testing or sooner if needed. Filomenamarta Tang [facility] Cardiology: T he following medications were removed from the medication list: Jardiance 10 Mg Tablet (Empagliflozin) ..... Take 1 tablet by mouth once a day Her updated medication list for this problem includes: Metformin 500 Mg Tablet (Metformin) ..... Twice a day Trulicity 0.75 Mg/0.5 Ml Pen Injector (Dulaglutide) ..... Inject 0.5 ml subcutaneously once a week Aspirin Childrens 81 Mg Tablet,chewable (Aspirin) ..... Take 1 tablet by mouth every day Filomenamarta Tang [facility] Cardiology:she remai ns on BB E KG today NSR no PVCs Her updated medication list for this problem includes: Metoprolol Succinate 25 Mg Tablet Extended Release 24 Hr (Metoprolol succinate) ..... Take 1 tablet by mouth once daily Aspirin Childrens 81 Mg Tablet,chewable (Aspirin) ..... Take 1 tablet by mouth every day [place] [facility] Cardiology:She has L DL of 106 on last labs S he has elevated lp(a) w ill update lipids H er updated medication list for this problem includes: Nexletol 180 Mg Tablet (Bempedoic acid) ..... Take one tablet by mouth once daily Atorvastatin 40 Mg Tablet (Atorvastatin) ..... Once a day Ezetimibe 10 Mg Tablet (Ezetimibe) Filomenamarta Tagn [facility] Cardiology:continues to have pounding and pressure in the ears c arotid shows less than 50% stenosis bilaterally m ay be related to elevated BP W ill however order CT head and neck with and without as recommended by Dr. Harkins to r/o any acute infarct, bleed, mass, or aneurysm. [facility] Cardiology:remains on replacemen t therapy [facility] Cardiology:cessation encourged. Now vaping [facility] Cardiology:Last Hgb A1C was 5.8%. Contnue present medication therapy T he following medications were removed from the medication list: Losartan 25 Mg Tablet (Losartan) ..... Take 1 tablet by mouth daily Lantus Solostar U-100 Insulin 100 Unit/ml (3 Ml) Insulin Pen (Insulin glargine) Glipizide 10 Mg Tablet (Glipizide) ..... Once a day Her updated medication list for this problem includes: Trulicity 0.75 Mg/0.5 Ml Pen Injector (Dulaglutide) ..... Inject 0.5 ml subcutaneously once a week Jardiance 10 Mg Tablet (Empagliflozin) ..... Take 1 tablet by mouth once a day Metformin 1,000 Mg Tablet (Metformin) ..... Twice a day Aspirin Childrens 81 Mg Tablet,chewable (Aspirin) ..... Take 1 tablet by mouth every day [facility] Cardiology:BP well c ontrolled. Unable to tolerate losartan as caused dizziness and near syncope. Will remain on BB alone T he following medications were removed from the medication list: Losartan 25 Mg Tablet (Losartan) ..... Take 1 tablet by mouth daily Her updated medication list for this problem includes: Metoprolol Succinate 25 Mg Tablet Extended Release 24 Hr (Metoprolol succinate) ..... Take 1 tablet by mouth once a day Aspirin Childrens 81 Mg Tablet,chewable (Aspirin) ..... Take 1 tablet by mouth every day [facility] Cardiology:LDL 106 o n last check. Will update lipids. continue present medication therapy T he following medications were removed from the medication list: Nexletol 180 Mg Tablet (Bempedoic acid) ..... Take 1 tablet by mouth every day Vascepa 1 Gram Capsule (Icosapent ethyl) ..... Take 2 capsules by mouth twice daily Her updated medication list for this problem includes: Atorvastatin 40 Mg Tablet (Atorvastatin) ..... Once a day Ezetimibe 10 Mg Tablet (Ezetimibe) Filomena Tang [facility] Cardiology:Continues to have atypical chest pain that comes and goes. Pain is associated with pounding and tingling in the chest. She had routine stress test that was negative for ischemia and echo last year that was normal. Given persistent symptoms and risk factors, DM, HlD, tobacco abuse will plan nuclear stress test. Will do lexiscan as HR at only 70% on previous testing. Will f/u post testing or sooner if needed. O rders: L ipoprotein (a) ([id number]) Filomena Byronrazajose alberto [facility] TeleHealth: 4 % Dean Harkins MD TeleHealth: n eg rpr and b12 Dean Harkins MD TeleHealth: H er updated medication list for this problem includes: Vascepa 1 Gram Capsule (Icosapent ethyl) ..... Take 2 capsules by mouth twice daily Zetia 10 Mg Tablet (Ezetimibe) ..... Take 1 tablet by mouth once a day Nexletol 180 Mg Tablet (Bempedoic acid) ..... Take one tablet by mouth once daily Atorvastatin 40 Mg Tablet (Atorvastatin) C HOL: 181 (10/07/2021) HDL: 40 (10/07/2021) Dean Harkins MD TeleHealth:neg treadmisl Dean Harkins MD TeleHealth: n eg uacr,pro 76 e ng ehco Dean Harkins MD :neg rprp and b12w Dean Harkins MD :neg uacr,pro 76 Dean Rodriguez Requesting Holter Results:4% Maykel Harkins MD Cardiology Dean Harkins MD Cardiology Dean Harkins MD Cardiology Dean Harkins MD Cardiology Dean Harkins MD Cardiology Dean Harkins MD Cardiology Dean Harkins MD Cardiology Dean Harkins MD Cardiology:7 Dean Harkins MD Cardiology Dean Harkins MD Cardiology Dean Harkins MD Cardiology Dean Harkins MD Cardiology Dean Harkins MD Cardiology Dean Harkins MD Cardiology:7 Dean Harkins MD Date Name CT Angio Head CT Angio, Carotids CT Head without cont rast Lipoprotein (a) LIPID PANEL CT, Coronary Calcium Score Complete Echo Stress Regadenoson Carotid Duplex Bilat eral CT, Coronary Calcium Score Holter Monitor 24 Hr PROBNP, N TERMINAL BASIC METABOLIC PANE L W/EGFR RPR (MONITOR) W/REFL TITER VITAMIN B12 Microalb/Creatinine Urine, Random CT, Coronary Calcium Score Stress Routine Complete Echo Holter Monitor 24 Hr CRP, high sensitivit y LIPID PANEL PROBNP, N TERMINAL HISTORY OF PROCEDURES Procedure Date Procedure Name Provider Procedure Notes S tatus EKG Dean Harkins MD complete d EKG Dean Harkins MD complete d
--- OUTSIDE RECORDS SUMMARY | 2024-07-16 05:36 | XMS_ITS | Continuity of Care Document ---
Author Organization [facility] Address [address] [place] [address] Phone Care Team Providers Care Child Care Giver Name Role Phone Management, Case Unavailable Unavailable Unavailable Unavailable Unavailable Advance Directives Directive Yes / No Effective Date File Name No Information Encounters Encounter Description Practice Location Reason(s) For Visit Diagnoses Date Provider Providers Copied on Encounter [facility] , [address], [place], [place], [id number], [place] tel:[phone] Estefaníamn On Leon No Information 0 Management Case. [address], [place], [place], [id number], [place]. tel:[phone] Family History Family Member Type Diagnosis Age At Onset No Information Payers Payer name Insurance type Covered republican ID Authoriza tion(s) No Information Social History Type Description Quantity Date Captured Comments Sex Female Smoking Status No Information Chief Complaint And Reason For Visit No Information Reason For Referral Reason For Referral No Information History Of Present Illness Encounter Date Complaint History Of Prese nt Illness No Information Functional Status Date Functional Assessmen t No Information Instructions Date Instruction Additional Infor mation No Information Assessments Type Assessment Date No Information Patient Care Teams Name Effective Dates (start - stop) Status Members No Information
--- OUTSIDE RECORDS SUMMARY | 2024-07-16 05:36 | XMS_ITS | Clinical Summary ---
Author Organization [facility] Address [facility] [place] [address] Care Team Providers Care Health Promotion Coordinator Name Role Phone Arina Presley Primary Care Provider [phone] Prieto Mcclain DO Unavailable [phone] Allergies Active Allergy Reactions Criticality Noted Date Comments Minocycline Hives Medium 05/23/2024 Reaction: HIVES Medications atorvastatin (LIPITOR) 40 mg tablet Take 1 tablet (40 mg total) by mouth daily Active fluticasone propionate (FLONASE) 50 mcg/actuation nasal spray Administer 1 spray into each nostril daily Active lamoTRIgine (LaMICtal) 100 mg tablet Take 1 tablet (100 mg total) by mouth daily Active metFORMIN (GLUCOPHAGE) 1,000 mg tablet Take 1 tablet (1,000 mg total) by mouth 2 (two) times a day with meals Active lancets 33 gauge misc Use 1 to check glucose dialy Active eszopiclone (LUNESTA) 3 mg tablet TAKE 1 TABLET BY MOUTH ONCE DAILY EVERY DAY IMMEDIATELY BEFORE BEDTIME FOR 30 DAYS for [address] (PROTONIX) 40 mg EC tabletIndication s:Gastroesophage al reflux disease, unspecified whether esophagitis present Take 1 tablet (40 mg total) by mouth 2 (two) times a day 60 tablet 2 3 Active QUEtiapine (SEROquel) 400 mg tablet Take 1 tablet (400 mg total) by mouth nightly [address] (CYMBALTA) 20 mg capsule TAKE 1 CAPSULE BY MOUTH ONCE DAILY IN THE EVENING Active blood glucose diagnostic (OneTouch Verio test strips) strip USE 1 STRIP TO CHECK GLUCOSE ONCE DAILY DIRECTED Active blood-glucose meter (OneTouch Verio Flex Start) kit as directed 3 Active blood-glucose meter (OneTouch Verio Flex meter) misc as directed Active lancing device with lancets (OneTouch Delica Plus Lanc Dev) kit USE 1 ONCE DAILY Active blood sugar diagnostic (ONETOUCH ULTRA BLUE TEST STRIP MISC) Active lancing device with lancets (OneTouch Delica Plus Lanc Dev) kit USE 1 ONCE DAILY Active lancets (OneTouch Delica Plus Lancet) 33 gauge misc USE 1 LANCET TO CHECK GLUCOSE ONCE DAILY Active lancets (OneTouch Delica Plus Lancet) 33 gauge misc USE 1 LANCET TO CHECK GLUCOSE ONCE DAILY Active pen needle, diabetic (BD Ultra-Fine Short Pen Needle) 31 gauge x 5/16 needle USE 1 NEEDLE ONCE DAILY TO INJECT INSULIN Active methocarbamoL (ROBAXIN) 750 mg tabletIndication s:Muscle Spasm Take 1-2 tablets (750-1,500 mg total) by mouth 3 (three) times a day as needed for muscle spasms 180 tablet 3 5 Active gabapentin (NEURONTIN) 600 mg tabletIndication s:Neuropathic Pain Take 1 tablet (600 mg total) by mouth 3 (three) times a day 90 capsule 5 5 Active Active Problems Problem Noted Date Diagnosed Date Degeneration of lumbar intervertebral disc 05/09 Chronic constipation 03/23/2023 Diabetic peripheral neuropathy 03/23/2023 Occlusion and stenosis of bilateral carotid kath ro 11/07/2022 Ventricular premature depolarization 10/06/2021 Chest pain, atypical 09/29/2021 Neuropathy 09/29/2021 Vitamin D deficiency 09/29/2021 Attention deficit hyperactivity disorder 021 Hepatomegaly 03/13/2019 Overview (05/23/2024): 03/20/19 Fibroscan CAP 322, LSM 6.8 kPa Steatosis of liver 03/13/2019 Other hyperlipidemia 03/13/2019 Rheumatoid arthritis 03/13/2019 Type 2 diabetes mellitus, wi thout long-term current use of insulin 02/27/2019 Overview (05/23/2024): neg UACXR and egfr Depressive disorder 08/09/2018 Bipolar disorder 08/09/2018 Hypertension 08/09/2018 Bipolar affective disorder, current episode depr essed 05/25/2015 Alcohol abuse 01/31/2013 Overview (05/24/2024): Sober since May 02 2020 Encounters Date Type Department Care Team Description 06/03/2024 Documentation [facility] [address] [facility] [address] [place] [address] Marty Leon MD Test Results 05/27/2024 Telephone [facility] [address] [facility] [address] [place] [address] Jo Rowan NP Methocarbamol PA approved 05/27/24-05/27/25 05/24/2024 5:07 PM CDT - 05/24/2024 11:59 PM CDT Hospital Encounter [facility] ([facility]) [address] [place] [id number] Diagnosis unknown Discharge Disposition: Discharge to home or self care 05/24/2024 4:45 PM CDT - 05/24/2024 11:59 PM CDT Hospital Encounter [facility] ([facility]) [address] [place] [id number] Discharge Disposition: Discharge to home or self care 05/24/2024 4:05 PM CDT - 05/24/2024 11:59 PM CDT Hospital Encounter [facility] ([facility]) [address] [place] [id number] Degeneration of intervertebral disc of lumbar region with lower extremity pain Discharge Disposition: Discharge to home or self care 05/24/2024 1:39 PM CDT - 05/24/2024 11:59 PM CDT Hospital Encounter [facility] [address] [facility] [address] [place] [address] Jo Rowan NP Degeneration of intervertebral disc of lumbar region with lower extremity pain (Primary Dx) Discharge Disposition: Discharge to home or self care from Last 3 Months Immunizations Immunization Administration Dates Next Due Influenza, Trivalent, IM (MDV) 01/07/2020 Pneumococcal Conjugate Pcv20 11/26/2021 Tdap 08/09/2018 Surgical History Surgery Date Site/Laterality Comments LOOP ELECTROSURGICAL EXCISION PROCEDURE SECTION Medical History Medical History Date Comments Hyperlipidemia Depressive disorder Hypertensive disorder Type 2 diabetes mellitus (HCC) Bipolar disorder (HCC) Attention deficit hyperactivity disorder Family History Medical History Relation Name Comments No Known Problems Father Depression Mother HTN Mother Relation Name Status Comments Father Mother Social History Tobacco Use Types Packs/Day Years Used Date Smoking Tobacco: Former Cigarettes Smokeless Tobacco: Never Tobacco Cessation:Counseling Given: Not Answered Personal Safety Answer Date Recorded Have you ever been in or are you currently in a harmful physical or emotional relationship or is someone making you feel afraid or unsafe? Denies 12/14/2022 Comments No Sex and Gender Information Value Date Recorded Sex Assigned at Not on file Legal Sex Female 3:22 PM EVENT ATTENDANT Gender Identity Not on file Sexual Orientation Not on file Obstetrics History Last Filed Vital Signs Vital Sign Reading Time Taken Comments Blood Pressure 142/81 05/24/2024 1:50 PM CDT Pulse 76 05/24/2024 1:50 PM CDT Temperature 36.5 C (97.7 F) 05/24/2024 1:50 PM CDT Respiratory Rate 16 05/24/2024 1:50 PM CDT Oxygen Saturation 99% 05/24/2024 1:50 PM CDT Inhaled Oxygen Concentration - - Weight 88 kg (193 lb 14.4 oz) 05/24/2024 1:50 PM CDT Height 185.4 cm (6' 1) 05/24/2024 1:50 PM CDT Body Mass Index 25.58 05/24/2024 1:50 PM CDT Plan of Treatment Health Maintenance Due Date Last Done Comments Albumin Creatinine Ratio, Urine 1970 Cervical Cancer Screening 1970 Depression Screening 1970 Hemoglobin A1C 1970 Hepatitis C Screening 1970 eGFR 1970 Dilated Eye Exam 1970 Foot Exam 1969 Lipid Panel 1969 Hepatitis B Screening 12/18/1987 Regular Well Visit/Exam 18-64 12/18/1987 Zoster Vaccine (1 of 2) 12/18/2019 Covid-19 Vaccine (5 - 2023-2 5 season) 2023 04/03/2021, 04/03/2021, 03/10/2021, Additional history exists Influenza Vaccine (Season Ended) 2024 01/07/20 Breast Cancer Screening-Mammogram 04/05/2025 04/05/2024, 04/05/2024, 03/23/2012 DTaP/Tdap/Td Vaccine (2 - Td or Tdap) 08/09/2028 08/09/2018 Colon Cancer Screening-Colonoscopy 12/14/20322022 Pneumococcal vaccine <65 Completed 11/26/2021 Goals Goal Patient Goal Type Associated Problems Recent Progress Patient-Stated? Author CCM Chronic Pain Care Plan Chronic Care Management Ne Reid, RN Note: Problem: Chronic Pain Goals: 1. Minimize further functional decline 2. Maximize quality of life 3. Control pain Strategies: - Activity/exercise program recommendation - Conservative stepwise pain medicine strategy with multi-disciplinary approach - Recommend healthy lifestyle strategies and compensatory methods as needed Procedures Procedure Name Priority Date/Time Associated Diagnosis Comments NEURO CT OUTSIDE CONSULT Routine 05/24/2024 5:07 PM CDT Diagnosis unknown XR TRANSFER OF OUTSIDE FILMS Routine 05/24/2024 4:45 PM CDT XR LUMBAR SPINE ROUTINE W FLEX EXT Schedule Routine, Read Routine (OP Routine) 05/24/2024 4:16 PM CDT Degeneration of intervertebral disc of lumbar region with lower extremity pain COLONOSCOPY 12/14/2022 1:28 PM CDT DIAGNOSTIC MAMMOGRAM BILATERAL W NAHUN Routine 03/23/2012 12:00 AM EVENT ATTENDANT from Last 3 Months or Most Recently Relevant to Health Maintenance Results * Neuro CT Outside Consult (05/24/2024 5:07 PM CDT) Anatomical Region Laterality Modality N/A Computed Tomogra phy 05/25/2024 8:29 AM CDT Impressions 05/25/2024 12:41 PM CDT This study was initially nominated as a consult on outside images via Outside Image Sharing Service. However, a consult was not performed because greater than 6 months old. Accordingly, there will be no separate report of this study generated by a [facility] Radiologist. Dictated by: Janak Eaton M.D. The radiology attending physician has personally reviewed this study, and had reviewed and/or edited this written report and agrees with it. Electronically signed by: Ankit Nevarez M.D. Narrative 05/25/2024 12:41 PM CDT EXAMINATION: CHANGE CONSULT ON OUTSIDE IMAGES TO REFERENCE IMAGES Procedure Note Ankit Nevarez MD - 05/25/2024 EXAMINATION: CHANGE CONSULT ON OUTSIDE IMAGES TO REFERENCE IMAGES IMPRESSION: This study was initially nominated as a consult on outside images via Outside Image Sharing Service. However, a consult was not performed because greater than 6 months old. Accordingly, there will be no separate report of this study generated by a [facility] Radiologist. Dictated by: Janak Eaton M.D. The radiology attending physician has personally reviewed this study, and had reviewed and/or edited this written report and agrees with it. Electronically signed by: Ankit Nevarez M.D. Jo Rowan NP IMG CT PROCEDURES Final Resul t * XR Outside Reference (05/24/2024 4:45 PM CDT) Impressions [facility] - 05/24/2024 4:45 PM CDT These images are for Reference purposes only and have not been reviewed by [facility]iology. There will be no report generated by a [facility] Radiologist. Narrative [facility] - 05/24/2024 4:45 PM CDT EXAMINATION: Images For Reference Purposes Only Jo Rowan KAI WHAKARURUHAU IMG XR PROCEDURES Final Resul t [facility] * XR Spine Lumbar Incl Bending Views 6 or More Views (05/24/2024 4:16 PM CDT) Anatomical Region Laterality Modality L-spine N/A Computed Radiogr aphy 05/24/2024 4:29 PM CDT Impressions 05/24/2024 4:29 PM CDT Mild to moderate lumbar degenerative disc disease, most prominent at L4-L5. Electronically signed by: Toni Alva MD Narrative 05/24/2024 4:29 PM CDT EXAMINATION: XR SPINE LUMBAR INCL BENDING VIEWS 6 OR MORE VIEWS HISTORY: Low back pain, lumbar spondylosis FINDINGS: No comparison. No significant alignment abnormalities. No spondylolisthesis. No pars defects. No abnormal motion with flexion or extension. Mild to moderate degenerative disc disease at L4-L5. Mild degenerative disc disease throughout the remainder of the lumbar spine. Mild lower lumbar facet osteoarthritis. Vascular calcifications. Procedure Note Toni Alva MD - 05/24/2024 EXAMINATION: XR SPINE LUMBAR INCL BENDING VIEWS 6 OR MORE VIEWS HISTORY: Low back pain, lumbar spondylosis FINDINGS: No comparison. No significant alignment abnormalities. No spondylolisthesis. No pars defects. No abnormal motion with flexion or extension. Mild to moderate degenerative disc disease at L4-L5. Mild degenerative disc disease throughout the remainder of the lumbar spine. Mild lower lumbar facet osteoarthritis. Vascular calcifications. IMPRESSION: Mild to moderate lumbar degenerative disc disease, most prominent at L4-L5. Electronically signed by: Toni Alva MD Jo Rowan KAI WHAKARURUHA[facility] IMG XR PROCEDURES Final Resul t * COLONOSCOPY (12/14/2022 1:28 PM CDT) Anatomical Region Laterality Modality Other Narrative Procedure Note Davina Maldonado MD - 12/14/2022 1:28 PM CDT [facility] Patient Name: Mona Dukes Procedure Date: 12/14/2022 1:28 PM Date of : 1970 Admit Type: Outpatient Age: 51 Gender: Female Attending MD: Davina Maldonado M.D. Room: [facility] ENDOSCOPY ROOM 4 Note Status: Finalized Procedure: Colonoscopy Indications: Screening for colorectal malignant neoplasm, Thisis the patient's first colonoscopy Referring MD: Airna Presley PA-C Providers: Davina Maldonado M.D. Medicines: Monitored Anesthesia Care Complications: No immediate complications. Estimated Blood Loss: Estimated blood loss was minimal. Procedure: Pre-Anesthesia Assessment: - Immediately prior to administration ofmedications, the patient was re-assessed for adequacy to receive sedatives. - The risks and benefits of the procedure and the sedation options and risks were discussed with the patient. All questions were answered and informed consent was obtained. The benefits, risks and alternatives of theprocedure and sedation were discussed and informed consentwas obtained. All questions were answered. Please referto the signed informed consent document in the medical record. The scope was passed under direct vision.The [id number] endoscope was introduced through the anus and advanced to the cecum, identified by appendiceal orifice and ileocecal valve. The colonoscopy was performed without difficulty. The patient tolerated the procedure well. The qualityof the bowel preparation was adequate. The quality ofthe bowel preparation was evaluated using the BBPS(Pinch Bowel Preparation Scale) with scores of: RightColon = 2 (minor amount of residual staining, smallfragments of stool and/or opaque liquid, but mucosa seenwell), Transverse Colon = 2 (minor amount of residual staining, small fragments of stool and/or opaque liquid, but mucosa seen well) and Left Colon = 2 (minor amount of residual staining, small fragmentsof stool and/or opaque liquid, but mucosa seen well).The total BBPS score equals 6. The quality of the bowel preparation was good. The bowel preparation usedwas GoLYTELY via split dose instruction. The right sideof the colon was examined twice. Findings: The perianal and digital rectal examinations were normal. A diminutive polyp was found in the ascending colon. The polyp was sessile. The polyp was removed with a cold biopsy forceps. Resectionand retrieval were complete. Multiple diverticula were found in the sigmoid colon. The exam was otherwise without abnormality on direct and retroflexion views. Impression: - One diminutive polyp in the ascending colon,removed with a cold biopsy forceps. Resected andretrieved. - Diverticulosis in the sigmoid colon. - The examination was otherwise normal on directand retroflexion views. Recommendation: - Discharge patient to home (with escort). - Repeat colonoscopy. - Polyp surveillance recommendations - A polyp or polyps were removed during your colonoscopy today. After the pathology result ofthe polyp(s) is reviewed, the doctor who performed your colonoscopy will recommend follow-up colonoscopy to you based on current guidelines by gastroenterology societies: - If only small hyperplastic polyps (<10mm) fromthe rectum or sigmoid were removed, repeat thecolonoscopy in 10 years. - If 1 or 2 polyps less than 1 cm in size are adenomas, repeat the colonoscopy in 7-10 years. - If 1 or 2 polpys less than 1 cm in size aresessile serrated polyps, repeat colonoscopy in 5-10years. - If 3 or 4 polyps are adenomas or sessile serrated (<1 cm), repeat the colonoscopy in 3-5 years. - If a hyperplastic polyp (>10mm) was removed,repeat colonoscopy in 3-5 years. - If there are 5-10 or adenomas or sessile serrated polyps, repeat the colonoscopy in 3 years. - If any polyp is 10 mm or greater in size, has villous histology or high grade dysplasia, repeatthe colonoscopy in 3 years. - If >10 adenomas, repeat colonoscopy in 1 year. - If a polyp greater than 2 cm was removed with a piecemeal technique, repeat the colonoscopy in 6 months to be certain that there is no residualpolyp. Attending Participation: I personally performed the entire procedure. Electronically signed by Davina Maldonado MD Davina Maldonado M.D. 12/14/2022 2:08:59 PM . Number of Addenda: 0 Note Initiated On: 12/14/2022 1:28 PM Recognized by the [employer] [employer] for promoting quality in endoscopy us Davina Maldonado MD ENDOSCOPY PROCEDURES Final Result * Diagnostic Mammogram Bilateral W [place] (03/23/2012 12:00 AM EVENT ATTENDANT) Anatomical Region Laterality Modality Breast Bilateral Mammography 03/23/2012 4:00 PM EVENT ATTENDANT Narrative 03/23/2012 5:29 PM EVENT ATTENDANT Bilateral digital diagnostic mammogram with CAD and tomosynthesis; bilateral breast ultrasound: HISTORY: 611.72. Left breast lump found by Dr. Javed on Monday. Baseline study. MAMMOGRAM FINDINGS: Standard three-view diagnostic mammogram of both breasts was performed including full field tomosynthesis in the CC and MLO projections. This is the patient's baseline study. BB was placed over the palpable lump upper outer left breast as directed by the patient. There are scattered fibroglandular densities present. Numerous small circumscribed and obscured nodules are present in both breasts much more plentiful and extensive on the left than the right. These are situated on the left predominately in the outer portion of the breast from 1 to 4 o'clock with the largest being the palpable lump measuring 17 mm upper outer quadrant. On the right, there is a 1.5 cm subareolar nodule 10 o'clock and possibly a cluster of nodules at 9 o'clock middle depth. Sonography is recommended bilaterally. BILATERAL BREAST ULTRASOUND: Ultrasound imaging of both breasts was performed. There are numerous cysts present in both breasts some of which are anechoic and some demonstrating low level echoes suggesting debris or complicated cysts. On the left, the most dominant cystic lesion is the palpable lump at 1 o'clock 1B which measures 1.7 x 1.5 x 1.1 cm and contains some debris. Numerous tiny cysts are seen surrounding this. Another more dominant cyst at 1 o'clock 1C measures 1.2 cm while a complicated cyst cluster at 4 o'clock 1B measures 1.2 cm in conglomerate. Other small cysts are seen on the left. On the right, there is a dominant multilocular cyst at 10 o'clock subareolar measuring 1.7 x 1 cm. A cluster of complicated cysts at 9 o'clock 1B are seen which are quite small. No suspicious findings. IMPRESSION: Both breasts: BI-RADS 2: Benign. 1. Numerous benign nodules suggesting fibrocystic changes and cysts. None are particularly suspicious. This includes the palpable lump on the left breast which is a complicated cyst. Recommend annual mammography. OVERALL ASSESSMENT: Benign. LO:[facility] Radiologist: LAMIN HERNANDEZ MD Attending: HEMA JAVED M.D. Requesting: HEMA JAVED M.D. Completed Time: 03/23/2012 4:00 PM Dictated Time: 03/23/2012 5:16 PM Transcribed Time: 03/23/2012 5:28 PM Signed by: LAMIN HERNANDEZ MD on 03/23/2012 5:29 PM Procedure Note Provider, MD Delaney - 06/11/2016 Bilateral digital diagnostic mammogram with CAD and tomosynthesis; bilateral breast ultrasound: HISTORY: 611.72. Left breast lump found by Dr. Javed on Monday. Baseline study. MAMMOGRAM FINDINGS: Standard three-view diagnostic mammogram of both breasts was performed including full field tomosynthesis in the CC and MLO projections. This is the patient's baseline study. BB was placed over the palpable lump upper outer left breast as directed by the patient. There are scattered fibroglandular densities present. Numerous small circumscribed and obscured nodules are present in both breasts much more plentiful and extensive on the left than the right. These are situated on the left predominately in the outer portion of the breast from 1 to 4 o'clock with the largest being the palpable lump measuring 17 mm upper outer quadrant. On the right, there is a 1.5 cm subareolar nodule 10 o'clock and possibly a cluster of nodules at 9 o'clock middle depth. Sonography is recommended bilaterally. BILATERAL BREAST ULTRASOUND: Ultrasound imaging of both breasts was performed. There are numerous cysts present in both breasts some of which are anechoic and some demonstrating low level echoes suggesting debris or complicated cysts. On the left, the most dominant cystic lesion is the palpable lump at 1 o'clock 1B which measures 1.7 x 1.5 x 1.1 cm and contains some debris. Numerous tiny cysts are seen surrounding this. Another more dominant cyst at 1 o'clock 1C measures 1.2 cm while a complicated cyst cluster at 4 o'clock 1B measures 1.2 cm in conglomerate. Other small cysts are seen on the left. On the right, there is a dominant multilocular cyst at 10 o'clock subareolar measuring 1.7 x 1 cm. A cluster of complicated cysts at 9 o'clock 1B are seen which are quite small. No suspicious findings. IMPRESSION: Both breasts: BI-RADS 2: Benign. 1. Numerous benign nodules suggesting fibrocystic changes and cysts. None are particularly suspicious. This includes the palpable lump on the left breast which is a complicated cyst. Recommend annual mammography. OVERALL ASSESSMENT: Benign. LO:[facility] Radiologist: LAMIN HERNANDEZ MD Attending: HEMA JAVED M.D. Requesting: HEMA JAVED M.D. Completed Time: 03/23/2012 4:00 PM Dictated Time: 03/23/2012 5:16 PM Transcribed Time: 03/23/2012 5:28 PM Signed by: LAMIN HERNANDEZ MD on 03/23/2012 5:29 PM Historical Provider IMDavid MAMMO PROCEDURES Yoli l Result from Last 3 Months or Most Recently Relevant to Health Maintenance Insurance [employer] [facility] Care Teams Health Promotion Coordinator Relationship Specialty Start Date End Date Arina Presley PA [address] [place] [id number] PCP - General Physician Ice Handler 12/15/21 Prieto Mcclain DO [address] [place] [address] Consulting Physician Gastroenterology 12/26/22
--- OUTSIDE RECORDS SUMMARY | 2024-07-16 05:36 | XMS_ITS | Referral Summary ---
Author Organization [facility] Address [address] [place] [address] Care Team Providers Care Sash Assembler Name Role Phone Arina Presley Primary Care Provider [phone] Prieto Mcclain DO Unavailable [phone] Encounters Date Type Department Care Team Description 06/03/2024 Documentation [facility] [address] [facility] [address] [place] [address] Marty Leon MD Test Results 05/27/2024 Telephone [facility] [address] [facility] [address] [place] [address] Jo Rowan NP Methocarbamol PA approved 05/27/24-05/27/25 05/24/2024 5:07 PM CDT - 05/24/2024 11:59 PM CDT Hospital Encounter [facility] [address] [place] [address] Diagnosis unknown Discharge Disposition: Discharge to home or self care 05/24/2024 4:45 PM CDT - 05/24/2024 11:59 PM CDT Hospital Encounter [facility] [address] [place] [address] Discharge Disposition: Discharge to home or self care 05/24/2024 4:05 PM CDT - 05/24/2024 11:59 PM CDT Hospital Encounter [facility] [address] [place] [address] Degeneration of intervertebral disc of lumbar region with lower extremity pain Discharge Disposition: Discharge to home or self care 05/24/2024 1:39 PM CDT - 05/24/2024 11:59 PM CDT Hospital Encounter [facility] [address] [facility] [address] [place] [address] Jo Rowan NP Degeneration of intervertebral disc of lumbar region with lower extremity pain (Primary Dx) Discharge Disposition: Discharge to home or self care from Last 3 Months Allergies Active Allergy Reactions Criticality Noted Date [...] Overview (05/24/2024): Sober since May 02 2020 Immunizations Immunization Administration Dates Next Due Influenza, Trivalent, IM (MDV) 01/07/2020 Pneumococcal Conjugate Pcv20 11/26/2021 Tdap 08/09/2018 Social History Tobacco Use Types Packs/Day Years [...] on file Legal Sex Female 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 Author CCM Chronic Pain Care Plan Chronic Care Management No Ne Dorman, RN Note: Problem: Chronic Pain Goals: 1. [...] BILATERAL W NAHUN Routine 03/23/2012 12:00 AM IT INFRASTRUCTURE SPECIALIST from Last 3 Months or Most Recently [...] report of this study generated by a [facility] Radiologist. Dictated by: Janak Eaton M.D. The [...] report of this study generated by a [facility] Radiologist. Dictated by: Janak Eaton M.D. The [...] only and have not been reviewed by [facility] Radiology. There will be no report generated by a [facility] Radiologist. Narrative RAD_PACS[facility] - 05/24/2024 4:45 PM CDT EXAMINATION: Images For Reference Purposes Only us Jo Rowan NP IMG XR PROCEDURES Final Resul t [facility]_P[facility] [...] L4-L5. Electronically signed by: Toni Alva MD us Jo HobsonAnne-Marie Rowan CAMPAIGN ANALYST IMG XR PROCEDURES Final Resul t * COLONOSCOPY (12/14/2022 1:28 PM CDT) Anatomical Region Laterality Modality Other Narrative Procedure Note Davina Maldonado MD - 12/14/2022 1:28 PM CDT [facility] END[facility] Patient Name: Mona Dukes Procedure Date: 12/14/2022 1:28 PM Date of : 1970 Admit Type: Outpatient Age: 51 Gender: Female Attending MD: Davina Maldonado M.D. Room: [facility] ENDOSCOPY ROOM 4 Note Status: Finalized Procedure: Colonoscopy Indications: Screening for colorectal malignant neoplasm, Thisis the patient's first colonoscopy Referring MD: Arina Presley PA-C Providers: Davina Maldonado M.D. Medicines: [...] The scope was passed under direct vision.The CF [id number] endoscope was introduced through the anus and advanced to the cecum, identified by appendiceal orifice and ileocecal valve. The colonoscopy was performed without difficulty. The patient tolerated the procedure well. The qualityof the bowel preparation was adequate. The quality ofthe bowel preparation was evaluated using the BBPS([place] Bowel Preparation Scale) with scores of: RightColon [...] On: 12/14/2022 1:28 PM Recognized by the [place] [employer] for promoting quality in endoscopy Davina Maldonado MD ENDOSCOPY PROCEDURES Final Result * Diagnostic Mammogram Bilateral W Nahun (03/23/2012 12:00 AM IT INFRASTRUCTURE SPECIALIST) Anatomical Region Laterality Modality Breast Bilateral Mammography 03/23/2012 4:00 PM IT INFRASTRUCTURE SPECIALIST Narrative 03/23/2012 5:29 PM IT INFRASTRUCTURE SPECIALIST Bilateral digital diagnostic mammogram with CAD and [...] cyst. Recommend annual mammography. OVERALL ASSESSMENT: Benign. LO:[facility] Radiologist: LAMIN HERNANDEZ MD Attending: HEMA [...] cyst. Recommend annual mammography. OVERALL ASSESSMENT: Benign. LO:[facility] Radiologist: LAMIN HERNANDEZ MD Attending: HEMA JAVED M.D. Requesting: HEMA JAVED M.D. Completed Time: 03/23/2012 4:00 PM Dictated Time: 03/23/2012 5:16 PM Transcribed Time: 03/23/2012 5:28 PM Signed by: LAMIN HERNANDEZ MD on 03/23/2012 5:29 PM us Historical Provider MD MCHUGH MAMMO PROCEDURES Yoli l Result from Last 3 Months or Most Recently Relevant to Health Maintenance Insurance [employer]TER [facility] [place] A[place] BETTER [facility] A[employer]NA BETTER [facility] Care Teams Sash Assembler Relationship Specialty Start Date End Date Arina Presley PA [facility] [place] [address] PCP - General Physician Moisture Conditioner Operator 12/15/21 Prieto Mcclain DO [address] [place] [address] Consulting Physician Gastroenterology 12/26/22
--- OUTSIDE RECORDS SUMMARY | 2024-07-16 05:36 | XMS_ITS ---
Author Organization [facility] Address [address] [address] Care Team Providers Care Security Flex Utility Officer Name Role Phone Arina Presley Primary Care Provider Tereza Ramirez Unavailable [phone] REASON FOR VISIT DFE (Diabetic foot eval) Encounters Encounter Location Date Provider Diagnosis [facility] [address] [facility] [address] [place] [address] 11/02/2023 Tereza Ramirez Plan Of Treatment No Information Progress Notes * Mona HEMPHILLDOB:1970 (53 yo F)Acc No.[id number]:11/02/2023 Progress Note Patient: Mona UNDERWOOD Provider: Alicja Ramirez DPM :1970 A ge:52 Y S ex:Female Date:11/02/2023 [address] [facility] [place] Pcp:Arina Presley Subjective: * Chief Complaints: * 1 . DFE (Diabetic foot eval). * HPI: Jolene Todd assisting with visit:: HPI/Rooming: . ..... P rimary reason for visit:: Diabetic Foot Care: [age] y/o diabetic female RTO for diabetic foot evaluation., Patient reports R eports last HA1c of. * Medical History: Objective: * Vitals: * Examination: G eneral Examination: Constitutional / [...] range of motion noted to the joints.. Assessment: Plan: * Treatment: * Images: * Electronic signature of Ophelia Ramirez DPM on 07/16/2024 at 05:35 AM CDT Sign off status: Pending * Provider: Alicja Ramirez DPM Date: 0 11/02/2023 Generated for Yaakov Estrada on: 0 07/16/2024 05:35 AM CDT History and Physical Notes * HPI (History of Present Illness) Category Sub-Category Detail Notes Category Not es Primary reason for visit: Diabetic Foot Care: 52 y/o diabetic female RTO f or diabetic foot evaluation., Patient reportsReports last HA1c of MA assisting with visit: HPI/Rooming: ..... Examination Category Sub-Category Detail Notes Category Not [...] range of motion noted to the joints. Lower Extremity DERM: Skin: no suspici ous [...]
--- NOTE | 2024-07-16 05:44 | ECG_ITS ---
Test Date: 2024-07-16 05:40:41 Measurements Intervals [place] Rate: 89 P: 61 FL: 162 QRS: -52 QRSD: 121 T: 59 QT: 404 QTc: 492 Interpretive Statements SINUS RHYTHM WITH FREQUENT VENTRICULAR PREMATURE COMPLEXES IN A BIGEMINAL PATTERN POSSIBLE LEFT ATRIAL ENLARGEMENT [-0.1mV P-WAVE IN V1/V2] POSSIBLE RIGHT VENTRICULAR CONDUCTION DELAY [RSR (QR) IN V1/V2] LEFT ANTERIOR FASCICULAR BLOCK [QRS AXIS <= -45, QR IN I, RS IN II] No previous ECG available for comparison Electronically Signed On 07-16-2024 14:05:25 CDT by Hermelinda Black M.D.
--- NOTE | 2024-07-16 05:45 | ED.CHESTPAIN ---
HPI - Chest Pain General Chief Complaint: Chest Pain <Kimi Liao MD - Last Filed: 07/16/24 09:10> Stated Complaint: CHEST PAIN <Kimi Liao MD - Last Filed: 07/16/24 09:10> Time Seen by Provider: 07/16/24 05:37 <Kimi Liao MD - Last Filed: 07/16/24 09:10> Source: patient <Kimi Liao MD - Last Filed: 07/16/24 09:10> Mode of arrival: ambulatory <Kimi Liao MD - Last Filed: 07/16/24 09:10> Limitations: no limitations <Kimi Liao MD - Last Filed: 07/16/24 09:10> History of Present Illness HPI narrative: Patient presents with report of chest pain. She states that started on the right side a few days ago and is now in the center of her chest even at rest. This morning awoke from her sleep. It is associated with shortness of breath. She denies any nausea or vomiting. She denies any diaphoresis but then states that she has felt clammy. Pain is worse with exhalation. It radiates to her right shoulder and back and wraps across her right breast. She did start to have a cough this morning but denies any hemoptysis. No fevers. She denies any cardiac history but has previously seen a commercial real estate appraiser. Not on anticoagulation. Denies sick contacts. She has been having leg weakness and bilateral knee joint pain. She endorses some palpitations. She has a sore throat and feels weak. She thinks her right ankle is swollen she tried to put her shoe on today. Cardiac risk factors HTN: Yes HLD: States under control but historically,yes DM: Yes Obese: 0 Smoker: Vapes nicotine/tobacco Personal history RI/TIA/CVA: 0 Fam Hx RI in first degree relative <65yo: 0 <Kimi Liao MD - Last Filed: 07/16/24 09:10> Related Data Allergies/Adverse Reactions: Allergies Allergy/AdvReac Type Severity Reaction Status Date / Time minocycline Allergy Hives Verified 07/16/24 06:04 <Kimi Liao MD - Last Filed: 07/16/24 09:10> PMFSH Past Medical History Medical History: Medical History Hyperlipidemia Hypertension Diabetes <Kimi Liao MD - Last Filed: 07/16/24 09:10> Surgical History Surgical History: Surgical History No pertinent past surgical history <Kimi Liao MD - Last Filed: 07/16/24 09:10> Social History Social History: Social History Tobacco type: e-cigarettes/vaping Additional smoking assessment comments: contains nicotine/tobacco <Kimi Liao MD - Last Filed: 07/16/24 09:10> Exam Narrative: GENERAL: Well-appearing, well-nourished, and in no acute distress. HEAD: Normocephalic, atraumatic. EYES: Non injected, non icteric ENT: Nares clear, no rhinorrhea or epistaxis. Gross auditory acuity intact. Posterior oropharynx with mild hyperemia but no tonsillar swelling or exudate. NECK: No meningismus. Anterior low lymphadenopathy/fullness CHEST: Speaking in full sentences. No respiratory distress. HEART: Regular rate and rhythm. . ABDOMEN: Soft, nondistended. No rigidity or guarding. Not peritoneal EXTREMITIES: Normal range of motion. No bilateral lower extremity edema at the distal tibias and legs are grossly symmetric at the calves SKIN: Warm, dry, no rash. NEURO: No focal deficits. Alert and oriented. Answering questions. Following commands. Normal speech without aphasia or dysarthria. PSYCH: Normal mood and affect. <Kimi Liao MD - Last Filed: 07/16/24 09:10> Course Vital Signs Vital signs: Vital Signs Pulse Rate 89 07/16/24 05:35 Respiratory Rate 23 H 07/16/24 05:35 Blood Pressure 164/90 H 07/16/24 05:35 Pulse Oximetry 100 07/16/24 05:35 Oxygen Delivery Room Air 07/16/24 05:35 Temperature 36.4 C L 07/16/24 05:56 Pulse Rate 86 07/16/24 08:43 Respiratory Rate 16 07/16/24 08:43 Blood Pressure 127/82 07/16/24 08:43 Pulse Oximetry 99 07/16/24 08:43 Oxygen Delivery Room Air 07/16/24 07:25 <Kimi Liao MD - Last Filed: 07/16/24 09:10> Vital Signs Pulse Rate 89 07/16/24 05:35 Respiratory Rate 23 H 07/16/24 05:35 Blood Pressure 164/90 H 07/16/24 05:35 Pulse Oximetry 100 07/16/24 05:35 Oxygen Delivery Room Air 07/16/24 05:35 Temperature 36.4 C L 07/16/24 05:56 Pulse Rate 86 07/16/24 08:43 Respiratory Rate 16 07/16/24 08:43 Blood Pressure 127/82 07/16/24 08:43 Pulse Oximetry 99 07/16/24 08:43 Oxygen Delivery Room Air 07/16/24 07:25 <Waldemar Christine MD - Last Filed: 07/16/24 10:16> MDM - Chest Pain MDM Narrative Medical decision making narrative: Patient presents with report of chest pain that has been going on for few days. In the emergency department she is afebrile with vital signs notable for hypertension. HEART SCORE History 2 highly suspicious 1 moderately suspicious 0 slightly suspicious History score [address] depression/elevation not due to LBBB, LVH, or digoxin [address] depression but LBBB, LVH, nonspecific repolarization changes 0 normal ECG score 0 (bigeminy but QT/QTc within normal limits) Age 2 >/= 65 1 45-64 0 <45 Age score 1 Risk factors (HTN, hypercholesterolemia, DM, obesity with BMI >30, current smoker or cessation </=3mo), positive fam hx with parent or sibling with CVD before age 65, atherosclerotic disease (prior RI, PCI/CABG, CVA/TIA, or peripheral arterial disease) 2 >/= 3 risk factors or history of atherosclerotic dz 1 - 1-2 risk factors 0 no known risk factors Risk factor score 2 (HTN, HLD, DM, smoke) Initial Troponin 2 >3 times normal limit 1 1-3 times normal limit 0 less than or equal to normal limit Troponin score 0 Total HEART Score 3 Dimer normal. Isolated elevation in alkaline phosphatase. She has hyperglycemia but without anion gap acidosis. Signed out to oncoming ED physician pending repeat troponin and reevaluation. <Kimi Liao MD - Last Filed: 07/16/24 09:10> Patient presents with report of chest pain that has been going on for few days. In the emergency department she is afebrile with vital signs notable for hypertension. HEART SCORE History 2 highly suspicious 1 moderately suspicious 0 slightly suspicious History score [address] depression/elevation not due to LBBB, LVH, or digoxin [address] depression but LBBB, LVH, nonspecific repolarization changes 0 normal ECG score 0 (bigeminy but QT/QTc within normal limits) Age 2 >/= 65 1 45-64 0 <45 Age score 1 Risk factors (HTN, hypercholesterolemia, DM, obesity with BMI >30, current smoker or cessation </=3mo), positive fam hx with parent or sibling with CVD before age 65, atherosclerotic disease (prior RI, PCI/CABG, CVA/TIA, or peripheral arterial disease) 2 >/= 3 risk factors or history of atherosclerotic dz 1 - 1-2 risk factors 0 no known risk factors Risk factor score 2 (HTN, HLD, DM, smoke) Initial Troponin 2 >3 times normal limit 1 1-3 times normal limit 0 less than or equal to normal limit Troponin score 0 Total HEART Score 3 Dimer normal. Isolated elevation in alkaline phosphatase. She has hyperglycemia but without anion gap acidosis. Signed out to oncoming ED physician pending repeat troponin and reevaluation. Repeat troponin was negative patient be discharged home to follow-up with her primary care provider <Waldemar Christine MD - Last Filed: 07/16/24 10:16> Differential Diagnosis Differential diagnosis: Likely stable angina, unstable angina pectoris, atypical chest pain, st elevation myocardial infarction, chest pain, biliary colic and other (pneumonia) <Kimi Liao MD - Last Filed: 07/16/24 09:10> Lab Data Attestation: I reviewed the patient's lab results. <Kimi Liao MD - Last Filed: 07/16/24 09:10> Result diagrams: 07/16/24 05:45 07/16/24 05:45 <Kimi Liao MD - Last Filed: 07/16/24 09:10> Labs: Lab Results 07/16/24 07/16/24 Range/Units 05:45 08:41 WBC 4.8 (4.5-10.0) K/mm3 RBC 4.58 (4.2-5.4) M/mm3 Hgb 12.1 (12.0-15.0) g/dL Hct 40.0 (37.0-47.0) % MCV 87.3 (80-100) fl MCH 26.4 (26-34) pg MCHC 30.3 L (32-36) g/dl RDW 13.0 (11.5-14.5) % Plt Count 174 (150-375) k/mm3 MPV 10.7 H (7.4-10.4) fl Immature Gran % (Auto) 0.2 (0-0.5) % Neut % (Auto) 44.9 L (45.5-73.1) % Lymph % (Auto) 43.6 (18.3-44.2) % Jasper % (Auto) 6.9 (2.6-8.5) % Eos % (Auto) 3.8 (0-4.4) % Baso % (Auto) 0.6 (0.2-1.2) % Lymph # (Auto) 2.07 (0.9-3.2) K/mm3 Jasper # (Auto) 0.3 (0.1-0.6) K/mm3 Eos # (Auto) 0.2 (0-0.3) K/mm3 Baso # (Auto) 0.0 (0.0-0.1) K/mm3 Abs Immat Gran (auto) 0.01 (0.00-0.031) K/mm3 Absolute Neuts (auto) 2.1 (1.3-6.7) K/mm3 Absolute Nucleated RBC 0.000 (0.0-0.012) K/mm3 Nucleated RBC % 0.0 (0.0-0.2) % PT 13.1 (11.1-14.7) Seconds INR 1.0 APTT 28.6 (22.3-36.8) Seconds D-Dimer 0.35 (<0.48) ug/mL Sodium 138 (137-145) mmol/L Potassium 3.4 (3.4-5.0) mmol/L Chloride 102 (98-107) mmol/L Carbon Dioxide 25 (22-30) mmol/L Anion Gap 11 (4-12) mmol/L BUN 23 H (7-17) mg/dL Creatinine 0.76 (0.7-1.0) mg/dL Estim Creat Clear Calc 87 ml/min Estimated GFR > 60 (59 - ) Glucose 193 H (65-110) mg/dL Calcium 9.2 (8.4-10.2) mg/dL Magnesium 2.2 (1.6-2.3) mg/dL Total Bilirubin 0.4 (0.2-1.3) mg/dL AST 30 (14-36) U/L ALT 26 (6-35) U/L Alkaline Phosphatase 154 H (38-126) U/L Troponin I < 0.012 < 0.012 (0.000-0.034) ng/mL NT-Pro-B Natriuret Pep 25 (19.9-100) pg/mL Total Protein 8.0 (6.3-8.2) g/dL Albumin 4.9 (3.5-5.1) g/dL Lipase 245 (23-300) U/L Influenza A (RT-PCR) Negative (Negative) Influenza B (RT-PCR) Negative (Negative) RSV (RT-PCR) Negative (Negative) SARS-CoV-2 RNA (RT-PCR) Negative (Negative) Group A Strep (PCR) Not detected (Negative) <Kimi Liao MD - Last Filed: 07/16/24 09:10> Lab Results 07/16/24 07/16/24 Range/Units 05:45 08:41 WBC 4.8 (4.5-10.0) K/mm3 RBC 4.58 (4.2-5.4) M/mm3 Hgb 12.1 (12.0-15.0) g/dL Hct 40.0 (37.0-47.0) % MCV 87.3 (80-100) fl MCH 26.4 (26-34) pg MCHC 30.3 L (32-36) g/dl RDW 13.0 (11.5-14.5) % Plt Count 174 (150-375) k/mm3 MPV 10.7 H (7.4-10.4) fl Immature Gran % (Auto) 0.2 (0-0.5) % Neut % (Auto) 44.9 L (45.5-73.1) % Lymph % (Auto) 43.6 (18.3-44.2) % Jasper % (Auto) 6.9 (2.6-8.5) % Eos % (Auto) 3.8 (0-4.4) % Baso % (Auto) 0.6 (0.2-1.2) % Lymph # (Auto) 2.07 (0.9-3.2) K/mm3 Jasper # (Auto) 0.3 (0.1-0.6) K/mm3 Eos # (Auto) 0.2 (0-0.3) K/mm3 Baso # (Auto) 0.0 (0.0-0.1) K/mm3 Abs Immat Gran (auto) 0.01 (0.00-0.031) K/mm3 Absolute Neuts (auto) 2.1 (1.3-6.7) K/mm3 Absolute Nucleated RBC 0.000 (0.0-0.012) K/mm3 Nucleated RBC % 0.0 (0.0-0.2) % PT 13.1 (11.1-14.7) Seconds INR 1.0 APTT 28.6 (22.3-36.8) Seconds D-Dimer 0.35 (<0.48) ug/mL Sodium 138 (137-145) mmol/L Potassium 3.4 (3.4-5.0) mmol/L Chloride 102 (98-107) mmol/L Carbon Dioxide 25 (22-30) mmol/L Anion Gap 11 (4-12) mmol/L BUN 23 H (7-17) mg/dL Creatinine 0.76 (0.7-1.0) mg/dL Estim Creat Clear Calc 87 ml/min Estimated GFR > 60 (59 - ) Glucose 193 H (65-110) mg/dL Calcium 9.2 (8.4-10.2) mg/dL Magnesium 2.2 (1.6-2.3) mg/dL Total Bilirubin 0.4 (0.2-1.3) mg/dL AST 30 (14-36) U/L ALT 26 (6-35) U/L Alkaline Phosphatase 154 H (38-126) U/L Troponin I < 0.012 < 0.012 (0.000-0.034) ng/mL NT-Pro-B Natriuret Pep 25 (19.9-100) pg/mL Total Protein 8.0 (6.3-8.2) g/dL Albumin 4.9 (3.5-5.1) g/dL Lipase 245 (23-300) U/L Influenza A (RT-PCR) Negative (Negative) Influenza B (RT-PCR) Negative (Negative) RSV (RT-PCR) Negative (Negative) SARS-CoV-2 RNA (RT-PCR) Negative (Negative) Group A Strep (PCR) Not detected (Negative) <Waldemar Christine MD - Last Filed: 07/16/24 10:16> ECG Data EKG #1: Attestation: I personally reviewed and interpreted this ECG as follows: <Kimi Liao MD - Last Filed: 07/16/24 09:10> ECG completion date: 07/16/24 <Kimi Liao MD - Last Filed: 07/16/24 09:10> ECG completion time: 05:40 <Kimi Liao MD - Last Filed: 07/16/24 09:10> Prior ECG tracings: not available for review (None in EMR) <Kimi Liao MD - Last Filed: 07/16/24 09:10> Interpretation: Patient is having frequent PVCs in a bigeminal pattern. Ventricular rate 89 beats per minute. SC interval 162. QRS 121. QT/QTC 404/450. Left anterior fascicular block with rS complexes in leads II, III, aVF (small R waves, deep S waves), qR complexes in lead I , avL (small Q waves and tall R waves) and left axis deviation with Leads II (and to a lesser extent III and aVF) negative and leads I and aVL positive. <Kimi Liao MD - Last Filed: 07/16/24 09:10> Discharge Plan Discharge Clinical Impression: Chest pain, Alkaline phosphatase elevation, Diabetes mellitus with hyperglycemia, Bigeminy <Kimi Liao MD - Last Filed: 07/16/24 09:10> Patient Disposition: Still a Patient <Kimi Liao MD - Last Filed: 07/16/24 09:10> Condition: Stable <Kimi Liao MD - Last Filed: 07/16/24 09:10> Instructions: Chest Pain (ED) <Kimi Liao MD - Last Filed: 07/16/24 09:10> Patient Language: Solomon Islander <Kimi Liao MD - Last Filed: 07/16/24 09:10> Prescriptions: No Action diazepam [Valium] 5 mg tablet 5 mg PO TID PRN (Reason: muscle spasm) Qty: 10 0RF hydrocodone-acetaminophen 5-325 mg tablet 1 tablet PO Q8H PRN (Reason: pain) Qty: 10 0RF methocarbamol 1,000 mg tablet 1,000 mg PO TID PRN (Reason: muscle pain) Qty: 15 0RF methylprednisolone [Medrol (Larry)] 4 mg tablets,dose pack See Rx Instructions PO .COMPLEX Qty: 21 0RF Rx Instructions: orally per package directions <Kimi Liao MD - Last Filed: 07/16/24 09:10> Follow-up/Referrals: Barbero,BETI Santa [Primary Care Provider] - Hermelinda Black MD [Physician] - (cardiology) <Kimi Liao MD - Last Filed: 07/16/24 09:10> Time of Disposition: 10:15 <Kimi Liao MD - Last Filed: 07/16/24 09:10> 10:15 <Waldemar Christine MD - Last Filed: 07/16/24 10:16>
[2024-07-16] MEDS: ASPIRIN 81 MG CHEWABLE TABLET 324 MG PO (05:56)
[2024-07-16 06:01] LABS: Basophils Percent Auto 0.6 % (0.2-1.2); Eosinophils Absolute Auto 0.2 K/mm3 (0-0.3); Eosinophils Percent Auto 3.8 % (0-4.4); Hemoglobin 12.1 g/dL (12.0-15.0); Immature Granulocyte Absolute 0.01 K/mm3 (0.00-0.031); Immature Granulocyte Percent A 0.2 % (0-0.5); Lymphocytes Absolute Auto 2.07 K/mm3 (0.9-3.2); Lymphocytes Percent Auto 43.6 % (18.3-44.2); Mean Corpuscular HGB Conc 30.3 g/dl (32-36); Mean Corpuscular Hemoglobin 26.4 pg (26-34); Mean Corpuscular Volume 87.3 fl (80-100); Mean Platelet Volume 10.7 fl (7.4-10.4); Monocytes Absolute Auto 0.3 K/mm3 (0.1-0.6); Monocytes Percent Auto 6.9 % (2.6-8.5); Neutrophils Absolute Auto 2.1 K/mm3 (1.3-6.7); Neutrophils Percent Auto 44.9 % (45.5-73.1); Platelet Count Result 174 k/mm3 (150-375); Red Blood Count 4.58 M/mm3 (4.2-5.4); White Blood Count 4.8 K/mm3 (4.5-10.0)
[2024-07-16 06:16] LABS: Partial Thromboplastin Time 28.6 Seconds (22.3-36.8); Prothrombin Time 13.1 Seconds (11.1-14.7)
[2024-07-16 06:21] LABS: D Dimer 0.35 ug/mL (<0.48)
[2024-07-16 06:23] LABS: Strep Group A RT-PCR NOT DETECTED (Negative)
[2024-07-16 06:29] LABS: Alanine Aminotransferase 26 U/L (6-35); Albumin Level 4.9 g/dL (3.5-5.1); Alkaline Phosphatase 154 U/L (38-126); Anion Gap 11 mmol/L (4-12); Aspartate Amino Transferase 30 U/L (14-36); Bilirubin,Total 0.4 mg/dL (0.2-1.3); Blood Urea Nitrogen 23 mg/dL (7-17); Calcium 9.2 mg/dL (8.4-10.2); Carbon Dioxide 25 mmol/L (22-30); Chloride 102 mmol/L (98-107); Estimated CRCL calculation 87 ml/min; Estimated Glomerular Filt Rate > 60; Glucose 193 mg/dL (65-110); Lipase 245 U/L (23-300); Potassium 3.4 mmol/L (3.4-5.0); Sodium 138 mmol/L (137-145)
[2024-07-16 06:32] LABS: Magnesium 2.2 mg/dL (1.6-2.3)
[2024-07-16 06:35] LABS: Influenza A QL RT-PCR Negative (Negative); Influenza B QL RT-PCR Negative (Negative); RSV RNA, RT-PCR Negative (Negative); SARS-CoV-2 RNA PCR Negative (Negative)
[2024-07-16] MEDS: NITROGLYCERIN SL 0.4 MG TABLET SUBLINGUAL (06:38)
--- OUTSIDE RECORDS SUMMARY | 2024-07-16 06:38 | XMS_ITS | Continuity of Care Document ---
Author Organization [facility] Address [address] [place] [address] Phone Care Team Providers Care Tariff Compiling Clerk Name Role Phone Management, Case Unavailable Unavailable Unavailable Unavailable Unavailable Advance Directives Directive Yes / No Effective Date File Name No Information Encounters Encounter Description Practice Location Reason(s) For Visit Diagnoses Date Provider Providers Copied on Encounter [facility] , [address], [place], [place], [id number], [place] tel:[phone] [facility] [place] No Information 0 Management Case. [address], [place], [place], [id number], [place]. tel:[phone] Family History Family Member Type Diagnosis Age [...]
--- OUTSIDE RECORDS SUMMARY | 2024-07-16 06:38 | XMS_ITS | Referral Summary ---
Author Organization [facility] Address [address] [place] [address] Care Team Providers Care Crude Oil Treater Name Role Phone Arina Presley Primary Care Provider [phone] Prieto Mcclain DO Unavailable [phone] Encounters Date Type Department Care Team Description 06/03/2024 Documentation [facility] [address] [facility] [address] [place] [address] Marty Leon MD Test Results 05/27/2024 Telephone [facility] [address] [facility] [address] [place] [address] Jo Rowan NP Methocarbamol PA approved 05/27/24-05/27/25 05/24/2024 5:07 PM CDT - 05/24/2024 11:59 PM CDT Hospital Encounter [facility] ([facility]) [address] [place] [address] Diagnosis unknown Discharge Disposition: Discharge to home or self care 05/24/2024 4:45 PM CDT - 05/24/2024 11:59 PM CDT Hospital Encounter [facility] ([facility]) [address] [place] [address] Discharge Disposition: Discharge to home or self care 05/24/2024 4:05 PM CDT - 05/24/2024 11:59 PM CDT Hospital Encounter [facility] ([facility]) [address] [place] [address] Degeneration of intervertebral disc of lumbar region with lower extremity pain Discharge Disposition: Discharge to home or self care 05/24/2024 1:39 PM CDT - 05/24/2024 11:59 PM CDT Hospital Encounter [facility] [address] [facility] [address] [place] [address] Jo Rowan NP Degeneration of intervertebral disc [...] on file 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 Dictated by: Janak Eaton M.D. [...] report of this study generated by a [facility] Radiologist. Dictated by: Janak Eaton M.D. [...] only and have not been reviewed by [facility]. There will be no report generated by a [facility] Radiologist. Narrative [facility]_PACS_[facility] - 05/24/2024 4:45 [...] Toni Alva MD us Jo HobsonAnne-Marie Rowan MACHINE SWEEPER BRUSH MAKER IMG XR PROCEDURES Final Resul t * COLONOSCOPY (12/14/2022 1:28 PM CDT) Anatomical Region Laterality Modality Other Narrative Procedure Note Davina Maldonado MD - 12/14/2022 1:28 PM CDT [facility] ENDOSCOPY [facility] Patient Name: Mona Dukes Procedure Date: 12/14/2022 1:28 PM Date of : 1970 Admit Type: Outpatient Age: 51 Gender: Female Attending MD: Davina Maldonado M.D. Room: [facility] ENDOSCOPY ROOM 4 Note Status: Finalized Procedure: [...] scope was passed under direct vision.The [id number] endoscope was introduced through the anus and advanced to the cecum, identified by appendiceal orifice and ileocecal valve. The colonoscopy was performed without difficulty. The patient tolerated the procedure well. The qualityof the bowel preparation was adequate. The quality ofthe bowel preparation was evaluated using the BBPS([place] Bowel Preparation Scale) with scores of: RightColon [...] On: 12/14/2022 1:28 PM Recognized by the [place] [employer] for promoting quality in endoscopy Davina Maldonado MD ENDOSCOPY PROCEDURES Final Result * Diagnostic Mammogram Bilateral W Nahun (03/23/2012 12:00 AM BOAT WORKER) Anatomical Region Laterality Modality Breast Bilateral Mammography 03/23/2012 4:00 PM BOAT WORKER Narrative 03/23/2012 5:29 PM BOAT WORKER Bilateral digital diagnostic mammogram with CAD and [...] cyst. Recommend annual mammography. OVERALL ASSESSMENT: Benign. LO:[facility] Radiologist: LAMIN HERNANDEZ MD Attending: HEMA JAVED [...] cyst. Recommend annual mammography. OVERALL ASSESSMENT: Benign. LO:[facility] Radiologist: LAMIN HERNANDEZ MD Attending: HEMA JAVED M.D. Requesting: HEMA JAVED M.D. Completed Time: 03/23/2012 4:00 PM Dictated Time: 03/23/2012 5:16 PM Transcribed Time: 03/23/2012 5:28 PM Signed by: LAMIN HERNANDEZ MD on 03/23/2012 5:29 PM us Historical Provider MD MCHUGH MAMMO PROCEDURES Yoli l Result from Last 3 Months or Most Recently Relevant to Health Maintenance Insurance AETNA BETTER [facility] [place] AET[place] BETTER [facility] AETNA BETTER [facility] Care Teams Crude Oil Treater Relationship Specialty Start Date End Date Arina Presley PA [facility] [place] [address] PCP - General Physician Hydro Plant Technician 12/15/21 Prieto Mcclain DO [address] [place] [address] Consulting Physician Gastroenterology 12/26/22
--- OUTSIDE RECORDS SUMMARY | 2024-07-16 06:38 | XMS_ITS | Encounter Summary ---
Author Organization [facility] Address [address] [place] [address] Phone Care Team Providers Care Invoicing Machine Operator Name Role Phone Arina Presley Primary Care Provider [phone] Prieto Mcclain DO Unavailable [phone] Encounter Details Date Type Department Care Team (Late st Contact Info) Description 10/13/2022 Orders Only [facility] Scanning, Provider Social History Tobacco Use Types Packs/Day Years Used Date Smoking Tobacco: Never Assessed Comments Unknown Sex and Gender Information Value Date Recorded Sex Assigned at Not on file 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
--- OUTSIDE RECORDS SUMMARY | 2024-07-16 06:38 | XMS_ITS | Clinical Summary ---
Author Organization [facility] Address [facility] [place] [address] Care Team Providers Care Food Editor Name Role Phone Arina Presley Primary Care Provider [phone] Prieto Mcclain DO Unavailable [phone] Allergies Active Allergy Reactions Criticality Noted Date [...] Type Department Care Team Description 06/03/2024 Documentation [facility] [address] [facility] [address] [place] [address] Marty Leon MD Test Results 05/27/2024 Telephone [facility] [address] [facility] [address] [place] [address] Jo Rowan NP Methocarbamol PA approved 05/27/24-05/27/25 05/24/2024 5:07 PM CDT - 05/24/2024 11:59 PM CDT Hospital Encounter [facility] ([facility]) [address] [place] [address] Diagnosis unknown Discharge Disposition: Discharge to home or self care 05/24/2024 4:45 PM CDT - 05/24/2024 11:59 PM CDT Hospital Encounter [facility] ([facility]) [address] [place] [address] Discharge Disposition: Discharge to home or self care 05/24/2024 4:05 PM CDT - 05/24/2024 11:59 PM CDT Hospital Encounter [facility] (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 Dictated by: Janak Eaton M.D. [...] report of this study generated by a [facility] Radiologist. Dictated by: Janak Eaton M.D. [...] only and have not been reviewed by [facility]. There will be no report generated by a [facility] Radiologist. Narrative RAD_PACS[facility] - 05/24/2024 4:45 PM CDT EXAMINATION: Images For Reference Purposes Only Jo Rowan JOB ESTIMATOR IMG XR PROCEDURES Final Resul t [facility]_PACS[facility] [...] signed by: Toni Alva MD Jo Rowan JOB ESTIMATOR IMG XR PROCEDURES Final Resul t * COLONOSCOPY (12/14/2022 1:28 PM CDT) Anatomical Region Laterality Modality Other Narrative Procedure Note Davina Maldonado MD - 12/14/2022 1:28 PM CDT [facility] Patient Name: Mona Dukes Procedure Date: 12/14/2022 1:28 PM Date of : 1970 Admit Type: Outpatient Age: 51 Gender: Female Attending MD: Davina Maldonado M.D. Room: [facility] ENDOSCOPY ROOM 4 Note Status: Finalized Procedure: [...] The scope was passed under direct vision.The [id number] endoscope was introduced through the anus and advanced to the cecum, identified by appendiceal orifice and ileocecal valve. The colonoscopy was performed without difficulty. The patient tolerated the procedure well. The qualityof the bowel preparation was adequate. The quality ofthe bowel preparation was evaluated using the BBPS([place] Bowel Preparation Scale) with scores of: RightColon [...] On: 12/14/2022 1:28 PM Recognized by the [place] [employer] End[employer] for promoting quality in endoscopy us Davina Maldonado MD ENDOSCOPY PROCEDURES Final Result * Diagnostic Mammogram Bilateral W Nahun (03/23/2012 12:00 AM RUBBER FLAP CUTTER) Anatomical Region Laterality Modality Breast Bilateral Mammography 03/23/2012 4:00 PM RUBBER FLAP CUTTER Narrative 03/23/2012 5:29 PM RUBBER FLAP CUTTER Bilateral digital diagnostic mammogram with CAD and [...] cyst. Recommend annual mammography. OVERALL ASSESSMENT: Benign. LO:[facility] Radiologist: LAMIN HERNANDEZ MD Attending: HEMA [...] cyst. Recommend annual mammography. OVERALL ASSESSMENT: Benign. LO:[facility] Radiologist: LAMIN HERNANDEZ MD Attending: HEMA JAVED M.D. Requesting: HEMA JAVED M.D. Completed Time: 03/23/2012 4:00 PM Dictated Time: 03/23/2012 5:16 PM Transcribed Time: 03/23/2012 5:28 PM Signed by: LAMIN HERNANDEZ MD on 03/23/2012 5:29 PM Historical Provider [facility] MAMMO PROCEDURES Yoli l Result from Last 3 Months or Most Recently Relevant to Health Maintenance Insurance AETNA [facility] Care Teams Food Editor Relationship Specialty Start Date End Date Arina Presley PA [address] [place] [address] PCP - General Physician Aircraft Air Conditioning Mechanic 12/15/21 Prieto Mcclain DO [address] [place] [address] Consulting Physician Gastroenterology 12/26/22
--- OUTSIDE RECORDS SUMMARY | 2024-07-16 06:38 | XMS_ITS | CONTINUITY OF CARE DOCUMENT ---
Author Name anita howard Address Unknown Organization [facility] Address [address] [facility] [address] [place] [address] Phone [phone] Care Team Providers Care Trust Administrator Name Role Phone Taurus MICHAELS, nAibal Unavailable [phone] MARLEN SANTOS PA-C Unavailable MARLEN SANTOS PA-C Unavailable [phone] PROBLEMS Condition Status Date Provider Notes Carotid artery disease;PLAQUING active Dean Harkins MD PVC's active Dean Harkins MD Overweight completed - Anibal Condon MD Tobacco use, quit active Dean Harkins MD Exposure to SARS-associated coronavirus;had vaccine active Dean Harkins MD Diabetes mellitus, type 2 active Filomena Ventimiglia INSURANCE OFFICE MANAGER neg UACXR and egfr Hyperlipidemia; with high crp and lpa 112 active Dean Harkins MD Vitamin D deficiency active Dean Rodriguez Palpitations completed - Dean Harkins MD Bipolar disorder active Dean Harkins MD Hemiblock, left anterior completed - Anibal Condon MD Chest pain, atypical active Dean Rodriguez Neuropathy active Dean Harkins MD Hypertension active Filomena Ventimiglia INSURANCE OFFICE MANAGER Screening completed - Anibal Condon MD Pulsatile tinnitus, bilateral completed - Anibal Condon MD New daily persistent headache completed - Anibal Condon MD ENCOUNTERS Date Type Provider Location Encounter Diag nosis 7 - 7 In-person encounter Office Visit Anibal Condon MD [facility] OverweightHemiblock, left anteriorScreeningPulsatile tinnitus, bilateralNew daily persistent headache 6 - 6 In-person encounter Office Visit Dean Harkins MD [facility] Diabetes mellitus, type 2Hypertension 5 - 5 In-person encounter Office Visit Dean Harkins MD [facility] 6 - 6 In-person encounter Office Visit Dean Harkins MD [facility] Office PalpitationsChest pain, atypical 0 - 0 In-person encounter Office Visit Dean Harkins MD [facility] Tobacco use, quitExposure to SARS-associated coronavirus;had [...] [lb_av] [facility] y height E&M 71 [in_i] [facility] y Body Mass Index (Ratio) 27.47 kg/m2 [...] blood pressure, cuff size large Raza hernandez [place] blood pressure, diastolic 80 mm[Hg] Raza hernandez [place] blood pressure, systolic 140 mm[Hg] [facility] patience [place] oxygen saturation, oximetry 97 % Quinn respiratory [...] High 8 cholesterol, serum 181 mg/dL [employer] [phone]/08/1 8 calcium, serum 10.1 mg/dL [facility] 8.7-10.2 8 carbon dioxide, venous blood 24 mmol/L [employer] 20-29 8 chloride, serum 100 mmol/L [employer] 96-106 8 potassium, serum 4.8 mmol/L [employer] 3.5-5.2 8 sodium, serum 140 mmol/L [employer] [phone]/08/1 8 urea nitrogen/creatin ine ratio, serum 17 [...] TABLET BY MOUTH ONCE DAILY Filomena Ventimiglia INSURANCE OFFICE MANAGER Jardiance 25 mg tablet active Take 1 tablet by mouth once a day Pavel Rucker losartan 50 mg tablet completed TAKE 1 TABLET BY MOUTH ONCE A DAY - Pavel Rucker metoprolol succinate 25 mg tablet extended release 24 hr active Take 1 tablet by mouth once daily Nicole Rodriguez eszopiclone 2 mg tablet active Filomena Ventimiglia INSURANCE OFFICE MANAGER Jardiance 10 mg tablet completed Take 1 tablet by mouth once a day - Filomena Ventimiglia INSURANCE OFFICE MANAGER metoprolol succinate 25 mg tablet extended release [...] mg tablet completed once a day - [facility] atorvastatin 40 mg tablet active once a day Dean Harkins MD SOCIAL HISTORY Date Observation Value Provider drug use no Pavel Kingzajason alcohol use no Pavel Bealjason smoking status Current every day smoker R linda Bealjason drug use no Filomena Ventimig [facility] alcohol use no Filomena Ventimig [facility] smoking status Current every day smoker A pramod [facility] drug use no Filomena Ventimig [facility] alcohol use no Filomena Ventimig [facility] smoking status Current every day smoker A pramod [facility]ij[facility] quit smoking, stage quit Dean clemente MD social history E&M S moking History: P fhaad has never smoked. Dean Harkins MD social history reviewed E&M revi ewed - no changes required Dean Harkins MD smoking status Never smoker Michelle Kong and INSURANCE PROVIDERS Payer name Policy type / Coverage type [facility] Medicaid 9 [id number] ADVANCE DIRECTIVES Name Date DISCUSSED - NO DECISION MADE TREATMENT PLAN Date Name Performer [id number],C,P fahad is having new daily headaches associated with tinnuitis and visual changes n o acute neuro deficit on exam b ut will plan CT eval as noted above. W ill return post testing or sooner if needed. Filomenamarta Matthewsmiglia [facility] [id number],C, T he following medications were removed from [...] Take 1 tablet by mouth every day [facility] [id number],C,s he remains on BB E KG today NSR no PVCs Her updated medication list for this problem includes: Metoprolol Succinate 25 Mg Tablet Extended Release 24 Hr (Metoprolol succinate) ..... Take 1 tablet by mouth once daily Aspirin Childrens 81 Mg Tablet,chewable (Aspirin) ..... Take 1 tablet by mouth every day [facility] [id number],C,S he has LDL of 106 on last labs S he has elevated lp(a) w ill update lipids H er updated medication list for this problem includes: Nexletol 180 Mg Tablet (Bempedoic acid) ..... Take one tablet by mouth once daily Atorvastatin 40 Mg Tablet (Atorvastatin) ..... Once a day Ezetimibe 10 Mg Tablet (Ezetimibe) [facility] [id number],C,c ontinues to have pounding and pressure in the ears c arotid shows less than 50% stenosis bilaterally m ay be related to elevated BP W ill however order CT head and neck with and without as recommended by Dr. Harkins to r/o any acute infarct, bleed, mass, or aneurysm. [facility] [id number],C,remains on re placement therapy [facility] [id number],C,cessation enc ourged. Now vaping [facility] [id number],C,L ast Hgb A1C was 5.8%. Contnue present [...] 1 tablet by mouth every day [facility]arta [facility] [id number],C,B P well controlled. Unable to tolerate losartan [...] Take 1 tablet by mouth every day [facility] [id number],C,L DL 106 on last check. Will update [...] day Ezetimibe 10 Mg Tablet (Ezetimibe) [facility] [id number],C,C ontinues to have atypical chest pain that [...] if needed. O rders: L ipoprotein (a) (704012) Filomena Tang INSURANCE OFFICE MANAGER [id number],S, 4 % Dean Serotcece MICHAELS [id number],S, n eg rpr and b12 Dean Serotcece MICHAELS [id number],B, H er updated medication list for this [...] (10/07/2021) HDL: 40 (10/07/2021) Dean Serotcece MICHAELS [id number],S,neg treadmisl Dean Serotcece MICHAELS [id number],S, n eg uacr,pro 76 e ng ehco Dean Serotcece MICHAELS [id number],C,neg rprp and b12w Dean Serotcece MICHAELS [id number],C,neg uacr,pro 76 Dean Serotcece MICHAELS [id number],C,4% Dean Ser abe [id number],S, Dean Serot a [id number],S, Dean Serot a [id number],S, Dean Serot a [id number],S, Dean Serot a [id number],S, Dean Serot a [id number],S, Dean Serot a [id number],S, Dean Serot a [id number],S,7 Dean gomez MD [id number],S, Dean Serot a [id number],B, Dean Serot a [id number],S, Dean Serot a [id number],S, Dean Serot a [id number],S, Dean Serot a [id number],S,7 Dean gomez MD Cardiology Pavel Rucker Cardiology: [...] o acute neuro deficit on exam b mi will plan CT eval as noted above. W ill return post testing or sooner if needed. Filomenamarta Tang [facility] Cardiology: T he following medications were removed [...] tablet by mouth every day Filomenamarta Tang [facility] Cardiology:she remai ns on BB E KG today NSR no PVCs Her updated medication list for this problem includes: Metoprolol Succinate 25 Mg Tablet Extended Release 24 Hr (Metoprolol succinate) ..... Take 1 tablet by mouth once daily Aspirin Childrens 81 Mg Tablet,chewable (Aspirin) ..... Take 1 tablet by mouth every day Amber Clyde [facility] Cardiology:She has L DL of 106 on last labs S he has elevated lp(a) w ill update lipids H er updated medication list for this problem includes: Nexletol 180 Mg Tablet (Bempedoic acid) ..... Take one tablet by mouth once daily Atorvastatin 40 Mg Tablet (Atorvastatin) ..... Once a day Ezetimibe 10 Mg Tablet (Ezetimibe) Filomenamarta Tang [facility] Cardiology:continues to have pounding and pressure in the ears c arotid shows less than 50% stenosis bilaterally m ay be related to elevated BP W ill however order CT head and neck with and without as recommended by Dr. Harkins to r/o any acute infarct, bleed, mass, or aneurysm. [facility] Cardiology:remains on replacemen t therapy [facility] Cardiology:cessation encourged. Now vaping [facility] Cardiology:Last Hgb A1C was 5.8%. Contnue present [...] Take 1 tablet by mouth every day [facility] Cardiology:BP well c ontrolled. Unable to tolerate [...] Take 1 tablet by mouth every day [facility] Cardiology:LDL 106 o n last check. Will [...] Ezetimibe 10 Mg Tablet (Ezetimibe) Filomena Tang [facility] Cardiology:Continues to have atypical chest pain that [...] if needed. O rders: L ipoprotein (a) (139553) Filomena Byronrazajose alberto [facility] TeleHealth: 4 % Dean Harkins MD TeleHealth: [...]
--- OUTSIDE RECORDS SUMMARY | 2024-07-16 06:38 | XMS_ITS | Encounter Summary ---
Author Organization [facility] Address [address] [place] [address] Phone Care Team Providers Care Inspector Outside Steam Distribution Name Role Phone Arina Presley Primary Care Provider [phone] Prieto Mcclain DO Unavailable [phone] Encounter Details Date Type Department Care Team (Late st Contact Info) Description 10/20/2022 Orders Only [facility] Scanning, Provider Social History Tobacco Use Types Packs/Day Years Used Date Smoking Tobacco: Never Assessed Comments Unknown Sex and Gender Information Value Date Recorded Sex Assigned at Not on file 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
[2024-07-16 06:41] LABS: NT Pro B Type Natriuretic Pept 25 pg/mL (19.9-100); Troponin I < 0.012 ng/mL (0.000-0.034)
--- NOTE | 2024-07-16 06:49 | PC.NURSE ---
This RN gave pt a 2nd Nitro per EDP. pt got some relief with the first dose.
--- NOTE | 2024-07-16 08:35 | ECG_ITS ---
Test Date: 2024-07-16 08:41:01 Measurements Intervals Parker Rate: 83 P: 57 MS: 160 QRS: -53 QRSD: 117 T: 13 QT: 386 QTc: 456 Interpretive Statements SINUS RHYTHM LEFT AXIS DEVIATION [QRS AXIS < -30] INCOMPLETE RIGHT BUNDLE BRANCH BLOCK [90+ ms QRS DURATION, TERMINAL R IN V1/V2, 40+ ms S IN I/aVL/V4/V5/V6] Compared to ECG 07/16/2024 05:40:41 Ventricular premature complex(es) no longer present Electronically Signed On 07-16-2024 14:07:01 CDT by Hermelinda Black M.D.
[2024-07-16 09:13] LABS: Troponin I < 0.012 ng/mL (0.000-0.034)
== END 2024-07-16 10:28 | disposition home or self-care (01) ==
PROVIDERS: Emergency Provider Student in an Organized Health Care Education/Training Program; PCP Physician Assistant
DX: R07.9 Chest pain, unspecified (principal); R74.8 Abnormal levels of other serum enzymes; R00.8 Other abnormalities of heart beat; E11.65 Type 2 diabetes mellitus with hyperglycemia; E78.5 Hyperlipidemia, unspecified; I10 Essential (primary) hypertension; Z11.59 Encounter for screening for other viral diseases
CPT/HCPCS: 36415; 71046; 80053; 83690; 83735; 83880; 84484; 85025; 85380; 85610; 85730; 87637; 87651; 93005; 99284; A9270